=== PATIENT | male | born 1935 | race Caucasian/White ===

== ENCOUNTER 2016-04-21 08:28 | Emergency (ER) | END 2016-04-21 11:30 | disposition home or self-care (01) | DX: N30.90 Cystitis, unspecified without hematuria (principal); I50.9 Heart failure, unspecified; I10 Essential (primary) hypertension; R40.2142 Coma scale, eyes open, spontaneous, at arrival to emergency department; R40.2252 Coma scale, best verbal response, oriented, at arrival to emergency department; R40.2362 Coma scale, best motor response, obeys commands, at arrival to emergency department; Z79.82 Long term (current) use of aspirin; Z85.46 Personal history of malignant neoplasm of prostate | CPT/HCPCS: 36415; 70450; 71010; 80053; 81001; 83605; 84484; 85025; 85610; 85730; 87040; 87086; 87400; 93005; J7030; Z7502; Z7610 ==

== ENCOUNTER 2016-04-26 10:41 | Emergency (ER) | payer MEDICAID ==
[~2016-04-26] VITALS: Wt 72.0 kg
[~2016-04-26 10:41] MED LIST: ALBU18HF INH; ASPI81TA3 PO; ATOR20TA38 PO; CEPH-443 PO; FURO40TA4 PO; LISI-523 PO; METO50TA16 PO; NIT4 SL
[2016-04-26 10:44] VITALS: Wt 72.0 kg
[2016-04-26 12:07] LABS: BASOPHILS % 0.4 % (0.0-2.0); EOSINOPHILS # 0.2 10^3/ul (0.0-0.5); EOSINOPHILS % 3.1 % (0.0-7.0); HEMATOCRIT 43.5 % (42.0-52.0); HEMOGLOBIN 15.3 g/dl (14.0-18.0); INR 1.04; LYMPHOCYTES # 1.1 10^3/ul (0.8-2.9); LYMPHOCYTES % 17.4 % (15.0-51.0); MEAN CORPUSCULAR HEMOGLOBIN 31.3 pg (29.0-33.0); MEAN CORPUSCULAR HGB CONC 35.1 g/dl (32.0-37.0); MEAN CORPUSCULAR VOLUME 89.2 fl (82.0-101.0); MEAN PLATELET VOLUME 11.2 fl (7.4-10.4); MONOCYTE # 0.4 10^3/ul (0.3-0.9); MONOCYTES % 6.3 % (0.0-11.0); NEUTROPHIL # 4.6 10^3/ul (1.6-7.5); NEUTROPHILS % 72.8 % (39.0-77.0); PLATELET COUNT 146 10^3/UL (140-440); PROTIME 13.6 Sec (12.2-14.2); PT RATIO 1.1; RED BLOOD COUNT 4.88 10^6/ul (4.70-6.10); RED CELL DISTRIBUTION WIDTH 14.3 % (11.5-14.5); UNCORRECTED WBC 6.4 10^3/ul (4.8-10.8); WHITE BLOOD COUNT 6.4 10^3/ul (4.8-10.8)
[2016-04-26 12:09] LABS: ALBUMIN 3.5 g/dl (3.3-4.9)
[2016-04-26 12:10] LABS: POTASSIUM 4.2 mmol/L (3.5-5.1)
[2016-04-26 12:12] LABS: ALBUMIN/GLOBULIN RATIO 0.94; BILIRUBIN,INDIRECT 0.7 mg/dl (0-1.1); BILIRUBIN,TOTAL 0.7 mg/dl (0.2-1.3); CREATININE 1.19 mg/dl (0.61-1.24); TOTAL PROTEIN 7.2 g/dl (6.1-8.1)
[2016-04-26 12:13] LABS: CALCIUM 9.1 mg/dl (8.4-10.2)
[2016-04-26 12:14] LABS: CONDITION 1; LH ANALYZER COMMENTS 1; SUSPECT 1
--- NOTE | 2016-04-26 12:16 | RADRPT ---
PROCEDURE: XR Chest. CLINICAL INDICATION: Chest pain. TECHNIQUE: Single AP portable chest COMPARISON: 04/21/2016 FINDINGS: The cardiac silhouette is enlarged but stable in size. . Mild vascular congestion stable compared t o prior study. No pneumothorax. The osseous structures and soft tissues are unremarkable. IMPRESSION: 1. Mild vascular congestion and cardiomegaly. No significant change compared to previous study. RPTAT:AAJJ Wil Chen Physician Date Time Electronically viewed and signed by Wil Chen Physician on 04/26/2016 12:16 NAKUL/
[2016-04-26] MEDS ORDERED: FUROSEMIDE 40 MG INJ IV ONE (12:30)
--- NOTE | 2016-04-26 13:33 | ERA ---
ER Documentation Chief Complaint Date/Time DATE: 04/26/16 TIME: 11:30 Chief Complaint cough and congestion for the past month. not better with abx HPI 80-year-old male with history of coronary artery disease/SC status post PCI and stent placement 7 years ago, hypertension, dyslipidemia, congestive heart failure, cardiomyopathy with ejection fraction less than 25% and prostate cancer status post remote prostatectomy ambulatory to the ED complaining of a one-month history of nonproductive cough, exertional dyspnea, PND and orthopnea. Mild chronic lower extremity swelling but no calf pain. Denies chest pain or palpitations. No abdominal pain, nausea, vomiting, diarrhea or constipation. Denies headache or neck pain. No URI symptoms or rhinorrhea. No fevers or chills. He has had similar symptoms intermittently for a year and had multiple previous ED visits. ROS All systems reviewed and are negative except as per history of present illness. Medications Home Meds Active Scripts Furosemide* (Furosemide*) 40 Mg Tablet, 40 MG PO DAILY for 30 Days, TAB Prov:OLU LEIGH 05/29/15 Albuterol Sulfate* (Ventolin HFA*) 1 Puff Inha, 1 PUFF INH Q4H Y for SHORTNESS OF BREATH, #1 INHALER Prov:OLU LEIGH 05/29/15 Lisinopril* (Zestril*) 5 Mg Tab, 5 MG PO DAILY for 30 Days, TAB Prov:REGOLU VELASCO 05/29/15 Metoprolol Succinate* (Toprol XL*) 50 Mg Tabsr, 50 MG PO DAILY for 30 Days Prov:OLU LEIGH 05/29/15 Nitroglycerin* (Nitrostat*) 25 Tab Subl, 0.4 MG SL Q5M Y for CHEST PAIN, #30 3 dose max. Prov:OLU LEIGH 05/29/15 Atorvastatin Calcium* (Atorvastatin Calcium*) 20 Mg Tab, 20 MG PO HS for 30 Days , TAB Prov:OLU LEIGH 05/29/15 Aspirin (Aspirin) 81 Mg Chew, 81 MG PO DAILY for 30 Days, TAB Prov:OLU LEIGH 05/29/15 Discontinued Scripts Cephalexin* (Keflex*) 500 Mg Capsule, 500 MG PO QID for 7 Days, CAP Prov:MATA JIMÉNEZ MD 04/21/16 Allergies Allergies: Coded Allergies: No Known Allergy (Unverified , 04/26/16) PMhx/Soc Reviewed in chart. As per HPI. History of Surgery: Yes (prostate removal (cancer), circumflex repair) Anesthesia Reaction: No Hx Neurological Disorder: No Hx Respiratory Disorders: Yes Hx Cardiac Disorders: Yes (chf) Hx Psychiatric Problems: No Hx Miscellaneous Medical Probl: Yes (HIGH CHOLESTEROL) Hx Alcohol Use: No Hx Substance Use: No Hx Tobacco Use: No Smoking Status: Current some day smoker Physical Exam Vitals Vital Signs Date Time Temp Pulse Resp B/P Pulse Ox O2 Delivery O2 Flow Rate FiO2 04/26/16 10:44 97.9 91 21 150/81 98 Physical Exam Const: Alert, no acute distress. Head: Atraumatic Eyes: Normal Conjunctiva ENT: Normal External Ears, Nose and Mouth. Neck: Full range of motion. JVD. Resp: Breath sounds are equal bilaterally with crackles at the bases. No wheezes or rhonchi. Cardio: Regular rate and rhythm, no murmurs Abd: Soft, non tender, non distended. Normal bowel sounds Skin: No petechiae or rashes Back: No midline or flank tenderness Ext: 1+ edema. No calf swelling or tenderness. Neur: Awake and alert. Cranial nerves II through XII are grossly intact. No focal deficit. Psych: Normal Mood and Affect Result Diagram: 04/26/16 1146 04/26/16 1146 Results 24 hrs Laboratory Tests Test 04/26/16 11:46 Activated Partial Thromboplast Time 36.0Sec Alanine Aminotransferase (ALT/SGPT) 45IU/L Albumin 3.5g/dl Albumin/Globulin Ratio 0.94 Alkaline Phosphatase 127IU/L Anion Gap 15 Aspartate Amino Transf (AST/SGOT) 34IU/L B-Type Natriuretic Peptide 7790PG/ML Basophils # 0.010^3/ul Basophils % 0.4% Blood Morphology Comment Blood Urea Nitrogen 24mg/dl Calcium Level 9.1mg/dl Carbon Dioxide Level 26mmol/L Chloride Level 108mmol/L Creatinine 1.19mg/dl Differential Comment AUTO w/SCAN Direct Bilirubin 0.00mg/dl Eosinophils # 0.210^3/ul Eosinophils % 3.1% Globulin 3.70g/dl Glucose Level 103mg/dl Hematocrit 43.5% Hemoglobin 15.3g/dl INR International Normalized Ratio 1.04 Indirect Bilirubin 0.7mg/dl Lymphocytes # 1.110^3/ul Lymphocytes % 17.4% Mean Corpuscular Hemoglobin 31.3pg Mean Corpuscular Hemoglobin Concent 35.1g/dl Mean Corpuscular Volume 89.2fl Mean Platelet Volume 11.2fl Monocytes # 0.410^3/ul Monocytes % 6.3% Neutrophils # 4.610^3/ul Neutrophils % 72.8% Nucleated Red Blood Cells # 0.010^3/ul Nucleated Red Blood Cells % 0.0/100WBC Platelet Count 53344^3/UL Potassium Level 4.2mmol/L Prothrombin Time 13.6Sec Prothrombin Time Ratio 1.1 Red Blood Count 4.8810^6/ul Red Cell Distribution Width 14.3% Sodium Level 145mmol/L Total Bilirubin 0.7mg/dl Total Protein 7.2g/dl White Blood Count 6.410^3/ul Current Medications Medications (Trade) Dose Ordered Sig/Miranda Route PRN Reason Start Time Stop Time Status Last Admin Dose Admin Furosemide (Lasix) 40 mg ONCE ONCE IV 04/26/16 12:30 04/26/16 12:31 DC 04/26/16 13:21 EKG: TIME: 11:08, sinus rhythm. Ventricular rate 96. Left axis deviation and left bundle branch block. No acute ST segment elevation or depression. No ectopy. ECG unchanged from May 2015. EP Interpretation: Abnormal EKG. IMAGING: PROCEDURE: XR Chest. CLINICAL INDICATION: Chest pain. TECHNIQUE: Single AP portable chest COMPARISON: 04/21/2016 FINDINGS: The cardiac silhouette is enlarged but stable in size. . Mild vascular congestion stable compared to prior study. No pneumothorax. The osseous structures and soft tissues are unremarkable. IMPRESSION: 1. Mild vascular congestion and cardiomegaly. No significant change compared to previous study. RPTAT:AAJJ Physician Leonidas Date Time Electronically viewed and signed by Physician Leonidas on 04/26/2016 12:16 NAKUL/ Procedures/MDM DOCUMENTS REVIEWED: ED nurse, prior ED, prior records ED COURSE: Lasix 40 mg IV MEDICAL DECISION MAKIN-year-old male with history of coronary artery disease/SC status post PCI and stent placement 7 years ago, hypertension, dyslipidemia, congestive heart failure, cardiomyopathy with ejection fraction less than 25% and prostate cancer status post remote prostatectomy ambulatory to the ED complaining of a one-month history of nonproductive cough, exertional dyspnea, PND and orthopnea. Patient with severe cardiomyopathy and ejection fraction less than 25% presents with acute on chronic congestive heart failure. Chest x-ray reveals mild pulmonary vascular congestion but no pulmonary edema or pneumonia. No chest pain, acute EKG changes or elevated troponin. Doubt pulmonary embolism. Diuresed with Lasix. No wheezing or bronchospasm. Stable for discharge with precautionary instructions and outpatient follow-up as counseled. Counseled patient regarding diagnostic workup, diagnosis and need for followup. Extensive counseling regarding the chronicity of the patient's disease, including his very poor cardiac function but he still fails to understand why he is not improving. Understands to return to ED if symptoms recur, worsen or any other concerns. Departure Diagnosis: Primary Impression: Congestive heart failure Qualified Code: I50.23 - Acute on chronic systolic congestive heart failure Additional Impressions: History of coronary artery disease Cardiomyopathy Qualified Code: I42.9 - Cardiomyopathy, unspecified type History of coronary artery stent placement Condition: Stable Patient Instructions: Heart Failure, LILLIANA Contreras MD Apr 26, 2016 13:33
[2016-04-26 14:47] VITALS: BP 149/98; PULSE 87; RESP 18; TEMP 98.2
== END 2016-04-26 14:49 | disposition home or self-care (01) ==
LOC: E/R 10:41
DX: I50.23 Acute on chronic systolic (congestive) heart failure (principal); I42.9 Cardiomyopathy, unspecified; F17.210 Nicotine dependence, cigarettes, uncomplicated; I10 Essential (primary) hypertension; I25.10 Atherosclerotic heart disease of native coronary artery without angina pectoris; Z98.61 Coronary angioplasty status; Z79.82 Long term (current) use of aspirin; Z85.46 Personal history of malignant neoplasm of prostate
CPT/HCPCS: 71010; 80053; 83880; 85025; 85610; 85730; J1940; 36415; 93005; 96374

== ENCOUNTER 2016-06-07 18:51 | Inpatient (IN) | payer MEDICAID ==
[~2016-06-07] VITALS: Ht 167.6 cm; Wt 70.2 kg
[~2016-06-07 18:51] MED LIST changes: -CEPH-443 PO
[2016-06-07] MEDS ORDERED: ASPIRIN 325 MG TAB PO STA (19:13)
[2016-06-07] MEDS ORDERED: ONDANSETRON 4 MG INJ IV STA (19:13)
[2016-06-07] MEDS ORDERED: morphine 4 MG/ML VIAL IV STA (19:13)
[2016-06-07] MEDS ORDERED: DILTIAZEM 25 MG INJ ONE (19:16)
[2016-06-07] MEDS ORDERED: DILTIAZEM 25 MG INJ IV ONE (19:30)
[2016-06-07] MEDS ORDERED: DILTIAZEM-D5W 125MG/125ML DRIP 125 ML IV SCH (19:30)
[2016-06-07 19:35] LABS: ADD SCAN DIFF NO
[2016-06-07 19:36] LABS: BASOPHILS % 0.3 % (0.0-2.0); EOSINOPHILS # 0.2 10^3/ul (0.0-0.5); EOSINOPHILS % 2.9 % (0.0-7.0); HEMATOCRIT 46.2 % (42.0-52.0); HEMOGLOBIN 15.4 g/dl (14.0-18.0); LYMPHOCYTES # 1.6 10^3/ul (0.8-2.9); LYMPHOCYTES % 26.1 % (15.0-51.0); MEAN CORPUSCULAR HEMOGLOBIN 30.7 pg (29.0-33.0); MEAN CORPUSCULAR HGB CONC 33.3 g/dl (32.0-37.0); MEAN CORPUSCULAR VOLUME 92.2 fl (82.0-101.0); MEAN PLATELET VOLUME 13.7 fl (7.4-10.4); MONOCYTE # 0.5 10^3/ul (0.3-0.9); MONOCYTES % 7.3 % (0.0-11.0); NEUTROPHIL # 3.9 10^3/ul (1.6-7.5); NEUTROPHILS % 63.1 % (39.0-77.0); PLATELET COUNT 131 10^3/UL (140-415); RED BLOOD COUNT 5.01 10^6/ul (4.70-6.10); RED CELL DISTRIBUTION WIDTH 15.4 % (11.5-14.5); WHITE BLOOD COUNT 6.2 10^3/ul (4.8-10.8)
[2016-06-07 19:51] LABS: ALBUMIN 3.7 g/dl (3.3-4.9); INR 1.18; POTASSIUM 4.1 mmol/L (3.5-5.1); PROTIME 15.1 Sec (12.2-14.2); PT RATIO 1.2
[2016-06-07 19:52] LABS: PARTIAL THROMBOPLASTIN TIME 35.6 Sec (25.0-35.0)
[2016-06-07 19:53] LABS: CREATININE 1.13 mg/dl (0.61-1.24)
[2016-06-07 19:54] LABS: ALBUMIN/GLOBULIN RATIO 1.23; BILIRUBIN,INDIRECT 0.7 mg/dl (0-1.1); BILIRUBIN,TOTAL 0.7 mg/dl (0.2-1.3); CALCIUM 9.4 mg/dl (8.4-10.2); TOTAL PROTEIN 6.7 g/dl (6.1-8.1)
[2016-06-07] MEDS ORDERED: SOD CHLORIDE 0.9% 500 ML IV ONE (20:00)
[2016-06-07 20:06] LABS: TROPONIN-I 0.034 ng/ml (0.00-0.12)
--- NOTE | 2016-06-07 20:12 | RADRPT ---
PROCEDURE: XR Chest. TECHNIQUE: Single frontal radiograph. CLINICAL INDICATION: Chest pain. COMPARISON: 04/26/2016. FINDINGS: Bibasilar atelectasis with mildly progressed vascular congestion in the background of cardiomegaly. No focal consolidation or definite pleural effusions. IMPRESSION: Increased vascular congestion. Unchanged bibasilar atelectasis and cardiomegaly. RPTAT: HEKC .Italo Winters MD, MD Date Time Electronically viewed and signed by .Italo Winters MD, MD on 06/07/2016 20:11 .C/
--- NOTE | 2016-06-07 21:19 | ERA ---
ER Documentation Chief Complaint Date/Time DATE: 06/07/16 TIME: 21:15 Chief Complaint 2 MOS SOB, WORSE X 2 DAYS WITH CP/ABD PAIN HPI This is a 80-year-old male who states that he said shortness of breath for 2 months. He says that he had an onset of gradual worsening shortness of breath but worse for the past 4 days. He also states that he felt palpitations 4 days ago has been there ever since. He says that he does have some dyspnea on exertion and orthopnea. Chest pain is described as a central chest pressure is moderate in nature without radiation no diaphoresis. He has no cough no fever no back pain. He says on occasion the chest pain will radiate to the back. ROS All systems reviewed and are negative except as per history of present illness. Medications Home Meds Active Scripts Furosemide* (Furosemide*) 40 Mg Tablet, 40 MG PO DAILY for 30 Days, TAB Prov:OLU LEIGH 05/29/15 Albuterol Sulfate* (Ventolin HFA*) 1 Puff Inha, 1 PUFF INH Q4H Y for SHORTNESS OF BREATH, #1 INHALER Prov:OLU LEIGH 05/29/15 Lisinopril* (Zestril*) 5 Mg Tab, 5 MG PO DAILY for 30 Days, TAB Prov:OLU LEIGH 05/29/15 Metoprolol Succinate* (Toprol XL*) 50 Mg Tabsr, 50 MG PO DAILY for 30 Days Prov:OLU LEIGH 05/29/15 Nitroglycerin* (Nitrostat*) 25 Tab Subl, 0.4 MG SL Q5M Y for CHEST PAIN, #30 3 dose max. Prov:REGOLU VELASCO 05/29/15 Atorvastatin Calcium* (Atorvastatin Calcium*) 20 Mg Tab, 20 MG PO HS for 30 Days , TAB Prov:REGIDOROLU 05/29/15 Aspirin (Aspirin) 81 Mg Chew, 81 MG PO DAILY for 30 Days, TAB Prov:REGOLU VELASCO 05/29/15 Allergies Allergies: Coded Allergies: No Known Allergy (Unverified , 04/26/16) PMhx/Soc History of Surgery: Yes (prostate removal (cancer), circumflex repair, stent ) Anesthesia Reaction: No Hx Neurological Disorder: No Hx Respiratory Disorders: No Hx Cardiac Disorders: Yes (chf) Hx Psychiatric Problems: No Hx Miscellaneous Medical Probl: Yes (HIGH CHOLESTEROL) Hx Alcohol Use: No Hx Substance Use: No Hx Tobacco Use: No Smoking Status: Never smoker FmHx Family History: No coronary disease Physical Exam Vitals Vital Signs Date Time Temp Pulse Resp B/P Pulse Ox O2 Delivery O2 Flow Rate FiO2 06/07/16 21:00 69 14 112/83 99 Mask 6.0 06/07/16 20:30 68 16 112/84 99 Mask 6.0 06/07/16 20:20 68 14 111/77 99 Mask 6.0 06/07/16 20:10 68 18 107/74 97 Mask 6.0 06/07/16 20:08 90 Nasal Cannula 4.0 06/07/16 20:00 71 12 93/74 97 Nasal Cannula 4.0 06/07/16 19:50 68 17 91/71 95 Nasal Cannula 4.0 06/07/16 19:40 68 13 86/72 95 Nasal Cannula 2.0 06/07/16 19:30 80 15 92/68 96 Nasal Cannula 2.0 06/07/16 19:20 138 23 112/85 99 Nasal Cannula 2.0 06/07/16 19:00 Nasal Cannula 2 06/07/16 19:00 Nasal Cannula 2.0 06/07/16 19:00 139 24 125/105 98 Room Air 06/07/16 18:54 96.8 140 28 120/86 97 Physical Exam Const: Well-developed, well-nourished Head: Atraumatic, normocephalic Eyes: Normal Conjunctiva, PERRLA, EOMI, normal sclera, no nystagmus ENT: Normal External Ears, Nose and Mouth, moist mucus membranes. Neck: Full range of motion. No meningismus, no lymphadenopathy. Resp: Bilateral rhonchi n mild increased work of breathing Cardio: Tachycardia no murmurs, S1 S2 present] Abd: Soft, non tender x 4, non distended. Normal bowel sounds, no guarding or rebound, no pulsitile abdominal masses or bruits Skin: No petechiae or rashes, no ecchymosis , no maculopapular rash Back: No midline or flank tenderness Ext: No cyanosis, or edema, FROM x 4, normal inspection, neurovascularly intact x 4 Neur: Awake and alert, STR 5/5 x 4, sensation intact x 4, no focal findings, cerebellum intact Psych: Normal Mood and Affect Result Diagram: 06/07/16191906/07/161919 Results 24 hrs Laboratory Tests Test 06/07/16 19:20 Activated Partial Thromboplast Time 35.6Sec Alanine Aminotransferase (ALT/SGPT) 355IU/L Albumin 3.7g/dl Albumin/Globulin Ratio 1.23 Alkaline Phosphatase 178IU/L Anion Gap 16 Aspartate Amino Transf (AST/SGOT) 247IU/L B-Type Natriuretic Peptide 7720PG/ML Basophils # 0.010^3/ul Basophils % 0.3% Blood Urea Nitrogen 41mg/dl Calcium Level 9.4mg/dl Carbon Dioxide Level 24mmol/L Chloride Level 107mmol/L Creatinine 1.13mg/dl Direct Bilirubin 0.00mg/dl Eosinophils # 0.210^3/ul Eosinophils % 2.9% Globulin 3.00g/dl Glucose Level 107mg/dl Hematocrit 46.2% Hemoglobin 15.4g/dl INR International Normalized Ratio 1.18 Indirect Bilirubin 0.7mg/dl Lymphocytes # 1.610^3/ul Lymphocytes % 26.1% Mean Corpuscular Hemoglobin 30.7pg Mean Corpuscular Hemoglobin Concent 33.3g/dl Mean Corpuscular Volume 92.2fl Mean Platelet Volume 13.7fl Monocytes # 0.510^3/ul Monocytes % 7.3% Neutrophils # 3.910^3/ul Neutrophils % 63.1% Nucleated Red Blood Cells # 0.010^3/ul Nucleated Red Blood Cells % 0.0/100WBC Platelet Count 10746^3/UL Potassium Level 4.1mmol/L Prothrombin Time 15.1Sec Prothrombin Time Ratio 1.2 Red Blood Count 5.0110^6/ul Red Cell Distribution Width 15.4% Sodium Level 143mmol/L Total Bilirubin 0.7mg/dl Total Protein 6.7g/dl Troponin I 0.034ng/ml White Blood Count 6.210^3/ul Current Medications Medications (Trade) Dose Ordered Sig/Miranda Route PRN Reason Start Time Stop Time Status Last Admin Dose Admin Aspirin (Aspirin) 325 mg ONCE STAT PO 06/07/16 19:13 06/07/16 19:16 DC 06/07/16 19:22 Morphine Sulfate (morphine) 4 mg ONCE STAT IV 06/07/16 19:13 06/07/16 19:16 DC 06/07/16 19:21 Ondansetron HCl (Zofran Inj) 4 mg ONCE STAT IV 06/07/16 19:13 06/07/16 19:16 DC 06/07/16 19:27 Diltiazem HCl 20 mg 20 mg ONCE ONCE IV 06/07/16 19:30 06/07/16 19:31 DC 06/07/16 19:18 Diltiazem HCl (Cardizem-D5W 125 Mg/125 ml Drip) 125 ml @ 5 mls/hr TITRATE IV 06/07/16 19:30 Diltiazem HCl 25 mg 25 mg STK-MED ONCE .ROUTE 06/07/16 19:16 06/07/16 19:17 DC Sodium Chloride (NS) 500 ml @ 500 mls/hr Q1H ONCE IV 06/07/16 20:00 06/07/16 20:59 DC 06/07/16 19:35 Furosemide (Lasix) 20 mg ONCE ONCE IV 06/07/16 21:30 06/07/16 21:31 UNV Procedures/MDM EKG: Rate/Rhythm: Sinus tachycardia heart rate 138 left bundle branch block QRS, ST, QT: NORMAL NM, QRS, QT] Impression: Abnormal EK Rate/Rhythm: Atrial flutter with a 4-1 block QRS, ST, QT: NORMAL NM, QRS, QT] Impression: Abnormal PROCEDURE: XR Chest. TECHNIQUE: Single frontal radiograph. CLINICAL INDICATION: Chest pain. COMPARISON: 04/26/2016. FINDINGS: Bibasilar atelectasis with mildly progressed vascular congestion in the background of cardiomegaly. No focal consolidation or definite pleural effusions. IMPRESSION: Increased vascular congestion. Unchanged bibasilar atelectasis and cardiomegaly. RPTAT: HEKC .Italo Winters MD, Date Time Electronically viewed and signed by .Italo Winters MD, on 06/07/2016 20:11 .C/ CC: HARI TAY DO Patient received IV Cardizem to slow the heart rate in his revealed a flutter block of 4-1. Patient has CHF on his chest x-ray when he milligrams of Lasix IV. We will admit the patient for diuresis as well as rate control. Give him Lovenox subcu for clot protection Patient received morphine and Zofran for chest pain. When his heart rate was decreased to normal his pain went away having a rate related chest pain Critical Care Time: 30 minutes Treatments/Evaluations: Close monitoring and treatment of unstable vital signs, cardiorespiratory, and neurologic status, while maintaining tight balance of fluid, respiratory, and cardiac interventions. This time includes discussing the case with the patient and the patient's family. This time does not include all procedures stated elsewhere in this record. This time also includes reviewing old records, labs and radiological studies. This time includes examining and re-examining the patient. Additionally, this time also includes arranging care with admitting and consulting physicians. Departure Diagnosis: Primary Impression: Atrial flutter Qualified Code: I48.92 - Atrial flutter, unspecified type Additional Impressions: Chest pain Qualified Code: R07.9 - Chest pain, unspecified type Pulmonary edema Qualified Code: J81.1 - Chronic pulmonary edema Condition: Stable HARI TAY DO Jun 07, 2016 21:19
[2016-06-07] MEDS ORDERED: FUROSEMIDE 20 MG INJ IV ONE (21:30)
[2016-06-07] MEDS ORDERED: ONDANSETRON 4 MG INJ IV PRN (21:30)
[2016-06-07] MEDS ORDERED: ENOXAPARIN 80 MG/0.8 ML SYG SC SCH (21:30)
[2016-06-07] MEDS ORDERED: NITROGLYCERIN (SL) 0.4 MG TAB SL PRN (21:30)
[2016-06-07] MEDS ORDERED: ACETAMINOPHEN 325 MG TAB PO PRN (21:30)
--- NOTE | 2016-06-07 21:32 | HP ---
Date/Time of Note Date/Time of Note DATE: 06/07/16 TIME: 21:29 Assessment/Plan VTE Prophylaxis VTE Prophylaxis Intervention: other (Enoxaparin) Lines/Catheters IV [facility]from [facility] Saline Lock Assessment/Plan Assessment/Plan 1) Atrial flutter Qualified Code: I48.92 - Atrial flutter, unspecified type - Admit to Telemetry - CONSULT: Cardio 2) Chest pain, Troponin = 0.034 - Serial Troponins for Rule-out Qualified Code: R07.9 - Chest pain, unspecified type 3) Pulmonary edema Qualified Code: J81.1 - Chronic pulmonary edema 4) Congesstive Heart Failure with elevated BNP = 7720 5) Transamminitis - Acute Hepatitis Panel HPI/ROS Admit Date/Time Admit Date/Time 06/07/162121 Hx of Present Illness 2 MOS SOB, WORSE X 2 DAYS WITH CP/ABD PAIN HPI This is a 80-year-old male who states that he said shortness of breath for 2 months. He says that he had an onset of gradual worsening shortness of breath but worse for the past 4 days. He also states that he felt palpitations 4 days ago has been there ever since. He says that he does have some dyspnea on exertion and orthopnea. Chest pain is described as a central chest pressure is moderate in nature without radiation no diaphoresis. He has no cough no fever no back pain. He says on occasion the chest pain will radiate to the back. ER Course per ER Physician: Patient received IV Cardizem to slow the heart rate in his revealed a flutter block of 4-1. Patient has CHF on his chest x-ray when he milligrams of Lasix IV. We will admit the patient for diuresis as well as rate control. Give him Lovenox subcu for clot protection Patient received morphine and Zofran for chest pain. When his heart rate was decreased to normal his pain went away having a rate related chest pain ROS All systems reviewed and are negative except as per history of present illness. PMH/Family/Social Past Medical History Medical History: cancer (Prostate), congestive heart failure, high cholesterol Past Surgical History Prostate Removal, Circumflex Repair (stent) Past Surgical Hx: other Family History Significant Family History: heart disease Social History Alcohol Use: none Smoking Status: Never smoker Drug Use: none Exam/Review of Systems Vital Signs Vitals Vital Signs Date Time Temp Pulse Resp B/P Pulse Ox O2 Delivery O2 Flow Rate FiO2 06/07/16 21:00 69 14 112/83 99 Mask 6.0 06/07/16 18:54 96.8 Exam Exam Const: Well-developed, well-nourished Head: Atraumatic, normocephalic Eyes: Normal Conjunctiva, PERRLA, EOMI, normal sclera, no nystagmus ENT: Normal External Ears, Nose and Mouth, moist mucus membranes. Neck: Full range of motion. No meningismus, no lymphadenopathy. Resp: Bilateral rhonchi n mild increased work of breathing Cardio: Tachycardia no murmurs, S1 S2 present] Abd: Soft, non tender x 4, non distended. Normal bowel sounds, no guarding or rebound, no pulsitile abdominal masses or bruits Skin: No petechiae or rashes, no ecchymosis , no maculopapular rash Back: No midline or flank tenderness Ext: No cyanosis, or edema, FROM x 4, normal inspection, neurovascularly intact x 4 Neur: Awake and alert, STR 5/5 x 4, sensation intact x 4, no focal findings, cerebellum intact Psych: Normal Mood and Affect Labs Result Diagram: 06/07/16191906/07/161919 Medications Medications Home Meds Active Scripts Furosemide* (Furosemide*) 40 Mg Tablet, 40 MG PO DAILY for 30 Days, TAB Prov:OLU LEIGH 05/29/15 Albuterol Sulfate* (Ventolin HFA*) 1 Puff Inha, 1 PUFF INH Q4H Y for SHORTNESS OF BREATH, #1 INHALER Prov:OLU LEIGH 05/29/15 Lisinopril* (Zestril*) 5 Mg Tab, 5 MG PO DAILY for 30 Days, TAB Prov:OLU LEIGH 05/29/15 Metoprolol Succinate* (Toprol XL*) 50 Mg Tabsr, 50 MG PO DAILY for 30 Days Prov:OLU LEIGH 05/29/15 Nitroglycerin* (Nitrostat*) 25 Tab Subl, 0.4 MG SL Q5M Y for CHEST PAIN, #30 3 dose max. Prov:OLU LEIGH 05/29/15 Atorvastatin Calcium* (Atorvastatin Calcium*) 20 Mg Tab, 20 MG PO HS for 30 Days , TAB Prov:TEETEE LEIGHNELL 05/29/15 Aspirin (Aspirin) 81 Mg Chew, 81 MG PO DAILY for 30 Days, TAB Prov:OLU LEIGH 05/29/15 Current Medications Diltiazem HCl (Cardizem-D5W 125 Mg/125 ml Drip) 125 ml @ 5 mls/hr TITRATE IV ; Start 06/07/16 at 19:30 Furosemide (Lasix) 20 mg ONCE ONCE IV ; Start 06/07/16 at 21:30; Stop 06/07/16 at 21:31 Enoxaparin Sodium (Lovenox) 80 mg ONCE SC ; Start 06/07/16 at 21:30 Procedures Procedures Laboratory Tests Test 06/07/16 19:20 Activated Partial Thromboplast Time 35.6Sec Alanine Aminotransferase (ALT/SGPT) 355IU/L Albumin 3.7g/dl Albumin/Globulin Ratio 1.23 Alkaline Phosphatase 178IU/L Anion Gap 16 Aspartate Amino Transf (AST/SGOT) 247IU/L B-Type Natriuretic Peptide 7720PG/ML Basophils # 0.010^3/ul Basophils % 0.3% Blood Urea Nitrogen 41mg/dl Calcium Level 9.4mg/dl Carbon Dioxide Level 24mmol/L Chloride Level 107mmol/L Creatinine 1.13mg/dl Direct Bilirubin 0.00mg/dl Eosinophils # 0.210^3/ul Eosinophils % 2.9% Globulin 3.00g/dl Glucose Level 107mg/dl Hematocrit 46.2% Hemoglobin 15.4g/dl INR International Normalized Ratio 1.18 Indirect Bilirubin 0.7mg/dl Lymphocytes # 1.610^3/ul Lymphocytes % 26.1% Mean Corpuscular Hemoglobin 30.7pg Mean Corpuscular Hemoglobin Concent 33.3g/dl Mean Corpuscular Volume 92.2fl Mean Platelet Volume 13.7fl Monocytes # 0.510^3/ul Monocytes % 7.3% Neutrophils # 3.910^3/ul Neutrophils % 63.1% Nucleated Red Blood Cells # 0.010^3/ul Nucleated Red Blood Cells % 0.0/100WBC Platelet Count 15839^3/UL Potassium Level 4.1mmol/L Prothrombin Time 15.1Sec Prothrombin Time Ratio 1.2 Red Blood Count 5.0110^6/ul Red Cell Distribution Width 15.4% Sodium Level 143mmol/L Total Bilirubin 0.7mg/dl Total Protein 6.7g/dl Troponin I 0.034ng/ml White Blood Count 6.210^3/ul PROCEDURE: XR Chest. TECHNIQUE: Single frontal radiograph. CLINICAL INDICATION: Chest pain. COMPARISON: 04/26/2016. FINDINGS: Bibasilar atelectasis with mildly progressed vascular congestion in the background of cardiomegaly. No focal consolidation or definite pleural effusions. IMPRESSION: Increased vascular congestion. Unchanged bibasilar atelectasis and cardiomegaly. Procedures/MDM EKG: Rate/Rhythm: Sinus tachycardia heart rate 138 left bundle branch block QRS, ST, QT: NORMAL [place], QRS, QT] Impression: Abnormal EK Rate/Rhythm: Atrial flutter with a 4-1 block QRS, ST, QT: NORMAL WV, QRS, QT] Impression: Abnormal SHI DOOLEY Jun 07, 2016 21:32 Sodium Chloride (NS) 500 ml @ 500 mls/hr Q1H ONCE IV 06/07/16 20:00 06/07/16 20:59 DC 06/07/16 19:35 Furosemide (Lasix) 20 mg ONCE ONCE IV 06/07/16 21:30 06/07/16 21:31 UNV Procedures/MDM EKG: Rate/Rhythm: Sinus tachycardia heart rate 138 left bundle branch block QRS, ST, QT: NORMAL WV, QRS, QT] Impression: Abnormal EK Rate/Rhythm: Atrial flutter with a 4-1 block QRS, ST, QT: NORMAL WV, QRS, QT] Impression: Abnormal PROCEDURE: XR Chest. TECHNIQUE: Single frontal radiograph. CLINICAL INDICATION: Chest pain. COMPARISON: 04/26/2016. FINDINGS: Bibasilar atelectasis with mildly progressed vascular congestion in the background of cardiomegaly. No focal consolidation or definite pleural effusions. IMPRESSION: Increased vascular congestion. Unchanged bibasilar atelectasis and cardiomegaly. RPTAT: HEKC .Italo Winters MD, MD Date Time Electronically viewed and signed by .Italo Winters MD, MD on 06/07/2016 20:11 .C/ CC: HARI TAY DO Patient received IV Cardizem to slow the heart rate in his revealed a flutter block of 4-1. Patient has CHF on his chest x-ray when he milligrams of Lasix IV. We will admit the patient for diuresis as well as rate control. Give him Lovenox subcu for clot protection Patient received morphine and Zofran for chest pain. When his heart rate was decreased to normal his pain went away having a rate related chest pain Critical Care Time: 30 minutes Treatments/Evaluations: Close monitoring and treatment of unstable vital signs, cardiorespiratory, and neurologic status, while maintaining tight balance of fluid, respiratory, and cardiac interventions. This time includes discussing the case with the patient and the patient's family. This time does not include all procedures stated elsewhere in this record. This time also includes reviewing old records, labs and radiological studies. This time includes examining and re-examining the patient. Additionally, this time also includes arranging care with admitting and consulting physicians. Departure Diagnosis: Primary Impression: Atrial flutter Qualified Code: I48.92 - Atrial flutter, unspecified type Additional Impressions: Chest pain Qualified Code: R07.9 - Chest pain, unspecified type Pulmonary edema Qualified Code: J81.1 - Chronic pulmonary edema Condition: Stable PMH/Family/Social Past Surgical History Past Surgical Hx: other Social History Smoking Status: Never smoker Exam/Review of Systems Vital Signs Vitals Vital Signs Date Time Temp Pulse Resp B/P Pulse Ox O2 Delivery O2 Flow Rate FiO2 06/07/16 21:00 69 14 112/83 99 Mask 6.0 06/07/16 18:54 96.8 Labs Result Diagram: 06/07/16191906/07/161919 Medications Medications Current Medications Diltiazem HCl (Cardizem-D5W 125 Mg/125 ml Drip) 125 ml @ 5 mls/hr TITRATE IV ; Start 06/07/16 at 19:30 Furosemide (Lasix) 20 mg ONCE ONCE IV ; Start 06/07/16 at 21:30; Stop 06/07/16 at 21:31 Enoxaparin Sodium (Lovenox) 80 mg ONCE SC ; Start 06/07/16 at 21:30 SHI DOOLEY DO Jun 07, 2016 21:32
[2016-06-08] VITALS (13 sets, daily range): BP systolic 99–123; BP diastolic 68–92; PULSE 92–131; RESP 18–20; TEMP 98.3; Ht 167.6 cm; Wt 70.2 kg
[2016-06-08] MEDS ORDERED: NACL 0.9% 3 ML SYG IV SCH
[2016-06-08 01:17] LABS: HAAIG REFLEX REFLEX FILED
[2016-06-08] MEDS: ALBUTEROL/IPRATROPIUM (NEB) 3 ML AMP NEB SCH ×2 (02:20→05:16)
[2016-06-08] MEDS: METOPROLOL (XL) 50 MG TAB PO SCH ×2 (03:32→09:04)
[2016-06-08 03:33] LABS: HEPATITIS B CORE ANTIBODY REACTIVE (NEGATIVE)
[2016-06-08 07:06] LABS: ADD SCAN DIFF NO
[2016-06-08 07:18] LABS: BASOPHILS % 0.3 % (0.0-2.0); EOSINOPHILS % 0.3 % (0.0-7.0); HEMATOCRIT 45.4 % (42.0-52.0); HEMOGLOBIN 15.2 g/dl (14.0-18.0); LYMPHOCYTES % 17.3 % (15.0-51.0); MEAN CORPUSCULAR HEMOGLOBIN 31.3 pg (29.0-33.0); MEAN CORPUSCULAR HGB CONC 33.5 g/dl (32.0-37.0); MEAN CORPUSCULAR VOLUME 93.4 fl (82.0-101.0); MEAN PLATELET VOLUME 14.4 fl (7.4-10.4); MONOCYTE # 0.3 10^3/ul (0.3-0.9); MONOCYTES % 5.2 % (0.0-11.0); NEUTROPHIL # 4.6 10^3/ul (1.6-7.5); NEUTROPHILS % 76.4 % (39.0-77.0); PLATELET COUNT 123 10^3/UL (140-415); RED BLOOD COUNT 4.86 10^6/ul (4.70-6.10); RED CELL DISTRIBUTION WIDTH 15.7 % (11.5-14.5)
[2016-06-08 07:29] LABS: POTASSIUM 4.5 mmol/L (3.5-5.1)
[2016-06-08 07:31] LABS: CREATININE 1.05 mg/dl (0.61-1.24)
[2016-06-08 07:32] LABS: CALCIUM 8.8 mg/dl (8.4-10.2)
[2016-06-08 07:33] LABS: MAGNESIUM 2.1 mg/dl (1.7-2.5)
[2016-06-08] MEDS ORDERED: ENOXAPARIN 40 MG/0.4 ML SYG SC SCH (09:00)
[2016-06-08] MEDS: ASPIRIN 81 MG TAB PO SCH (09:02)
[2016-06-08] MEDS: LISINOPRIL 5 MG TAB PO SCH (09:06)
[2016-06-08] MEDS: LEVALBUTEROL (NEB) 1.25 MG/0.5 ML AMP HHN SCH ×4 (09:35→20:11)
[2016-06-08] MEDS: FUROSEMIDE 20 MG INJ IV SCH ×2 (12:54→17:12)
[2016-06-08] MEDS ORDERED: DILTIAZEM 60 MG TAB PO ONE (14:00)
--- NOTE | 2016-06-08 19:18 | PN ---
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 Prophylaxis: Lovenox Problems: Subjective 24 Hr Interval Summary Respiratory: shortness of breath Exam/Review of Systems Vital Signs Vitals Vital Signs Date Time Temp Pulse Resp B/P Pulse Ox O2 Delivery O2 Flow Rate FiO2 06/08/16 16:58 3.0 06/08/16 16:58 130 18 97 Nasal Cannula 06/08/16 16:23 97.5 121/72 06/08/16 05:17 32 Intake and Output 06/07/16 06/07/16 06/08/16 15:00 23:00 07:00 Intake Total 80 ml Balance 80 ml Exam Constitutional: alert Respiratory: clear to auscultation Cardiovascular: regular rate and rhythm Gastrointestinal: soft, No distended Musculoskeletal: nl extremities to inspection Results Result Diagram: 06/08/16 0555 06/08/16 0555 Results 24 hrs Laboratory Tests Test 06/07/16 19:20 06/08/16 05:55 Activated Partial Thromboplast Time 35.6 H Alanine Aminotransferase (ALT/SGPT) 355 H Albumin 3.7 Albumin/Globulin Ratio 1.23 Alkaline Phosphatase 178 H Anion Gap 16 17 H Aspartate Amino Transf (AST/SGOT) 247 H B-Type Natriuretic Peptide 7720 H Basophils # 0.0 0.0 Basophils % 0.3 0.3 Blood Urea Nitrogen 41 H 42 H Calcium Level 9.4 8.8 Carbon Dioxide Level 24 24 Chloride Level 107 108 Creatinine 1.13 1.05 Direct Bilirubin 0.00 Eosinophils # 0.2 0.0 Eosinophils % 2.9 0.3 Globulin 3.00 Glucose Level 107 110 Hematocrit 46.2 45.4 Hemoglobin 15.4 15.2 Hepatitis B Core Total Antibody REACTIVE H Hepatitis B Surface Antigen NEGATIVE Hepatitis C Antibody NEGATIVE INR International Normalized Ratio 1.18 Indirect Bilirubin 0.7 Lymphocytes # 1.6 1.0 Lymphocytes % 26.1 17.3 Mean Corpuscular Hemoglobin 30.7 31.3 Mean Corpuscular Hemoglobin Concent 33.3 33.5 Mean Corpuscular Volume 92.2 93.4 Mean Platelet Volume 13.7 #H 14.4 H Monocytes # 0.5 0.3 Monocytes % 7.3 5.2 Neutrophils # 3.9 4.6 Neutrophils % 63.1 76.4 Nucleated Red Blood Cells # 0.0 0.0 Nucleated Red Blood Cells % 0.0 0.0 Platelet Count 131 L 123 L Potassium Level 4.1 4.5 Prothrombin Time 15.1 H Prothrombin Time Ratio 1.2 Red Blood Count 5.01 4.86 Red Cell Distribution Width 15.4 H 15.7 H Sodium Level 143 144 Thyroid Stimulating Hormone (TSH) 3.750 Total Bilirubin 0.7 Total Protein 6.7 Troponin I 0.034 White Blood Count 6.2 6.0 Magnesium Level 2.1 Phosphorus Level 4.0 Medications Medications Current Medications Aspirin (Aspirin) 81 mg DAILY PO Last administered on 06/08/16 09:02; Admin Dose 81 MG; Start 06/08/16 at 09:00 Lisinopril (Zestril) 5 mg DAILY PO Last administered on 06/08/16 09:06; Admin Dose 5 MG; Start 06/08/16 at 09:00 Metoprolol Succinate (Toprol Xl) 50 mg DAILY PO Last administered on 06/08/16 09:04; Admin Dose 50 MG; Start 06/08/16 at 03:30 Nitroglycerin (Nitroglycerin (Sl Tab) 0.4 Mg) 1 tab Q5M PRN SL CHEST PAIN; Start 06/07/16 at 21:30 Enoxaparin Sodium (Lovenox) 40 mg DAILY SC Last administered on 06/08/16 09:10 ; Admin Dose 40 MG; Start 06/08/16 at 09:00 SADIA SON Jun 08, 2016 19:18
--- NOTE | 2016-06-08 19:28 | CONS ---
Date/Time of Note Date/Time of Note DATE: 06/08/16 TIME: 19:09 Assessment/Plan Assessment/Plan Chief Complaint/Hosp Course Assessment: Typical atrial flutter - 2:1 AV conduction, onset >48 hours based on symptoms Acute on chronic systolic heart failure Ischemic cardiomyopathy - LVEF<25%, no reversible defects on Lexiscan SPECT April 2015 Chronic left bundle branch block Coronary artery disease, history of coronary stenting - details unknown Hypertension Dyslipidemia History of stroke Transaminitis - per primary team Recommendations: -telemetry monitoring -diuresis - Lasix 40mg IV daily -metoprolol 50mg PO Q6hr (will change back to succinate form when on stable dose ) -digoxin PO - 0.5mg x 1, then 0.25mg Q6hr x 2, then 0.25mg daily -PRN diltiazem -continue lisinopril 5mg daily -continue aspirin 81mg daily -start Xarelto - will need evaluation for DCCV/atrial flutter ablation as outpatient after 3-4 weeks of anticoagulation -will eventually also need evaluation for primary prevention ICD as outpatient -hold atorvastatin in setting of transaminitis Problems: Consultation Date/Type/Reason Admit Date/Time 06/07/162121 Type of Consultation: Cardiology Reason for Consultation atrial flutter Hx of Present Illness The patient is a 80 year-old male with ischemic cardiomyopathy and chronic systolic heart failure who presents with a two month history of worsening shortness of breath and a four-day history of palpitations. He is noted to be in atrial flutter with 2:1 AV conduction. Chest x-ray shows pulmonary vascular congestion and BNP is elevated at 7790, consistent with acute decompensated heart failure. He previously had a Lexiscan SPECT 05/27/2015 which showed a moderate-sized nonreversible defect in the distal septal and inferior agrawal, and no reversible defects. 14 point review of systems negative other than per HPI. Past Medical History Chronic systolic heart failure Ischemic cardiomyopathy - LVEF<25% Coronary artery disease, history of coronary stenting - details unknown Hypertension Dyslipidemia History of stroke History of prostate cancer Past Surgical History Past Surgical Hx: other (prostatectomy) Family History Significant Family History: no pertinent family hx Social History Alcohol Use: none Smoking Status: Never smoker Drug Use: none Exam/Review of Systems Vital Signs Vitals Vital Signs Date Time Temp Pulse Resp B/P Pulse Ox O2 Delivery O2 Flow Rate FiO2 06/08/16 16:58 3.0 06/08/16 16:58 130 18 97 Nasal Cannula 06/08/16 16:23 97.5 121/72 06/08/16 05:17 32 Intake and Output 06/07/16 06/07/16 06/08/16 15:00 23:00 07:00 Intake Total 80 ml Balance 80 ml Exam Constitutional: alert, well developed Psych: nl mood/affect, no complaints Head: atraumatic, normocephalic Eyes: nl conjunctiva, nl lids ENMT: nl external ears & nose, nl nasal mucosa & septum Neck: jvd, non-tender, supple Respiratory: diminished breath sounds, No wheezing Cardiovascular: other (tachycardic) Gastrointestinal: non-tender, soft Musculoskeletal: nl extremities to inspection Extremities: No clubbing, No edema Neurological: nl mental status, nl speech Results Result Diagram: 06/08/16 0555 06/08/16 0555 Results 24 hrs Laboratory Tests Test 06/07/16 19:20 06/08/16 05:55 Activated Partial Thromboplast Time 35.6 H Alanine Aminotransferase (ALT/SGPT) 355 H Albumin 3.7 Albumin/Globulin Ratio 1.23 Alkaline Phosphatase 178 H Anion Gap 16 17 H Aspartate Amino Transf (AST/SGOT) 247 H B-Type Natriuretic Peptide 7720 H Basophils # 0.0 0.0 Basophils % 0.3 0.3 Blood Urea Nitrogen 41 H 42 H Calcium Level 9.4 8.8 Carbon Dioxide Level 24 24 Chloride Level 107 108 Creatinine 1.13 1.05 Direct Bilirubin 0.00 Eosinophils # 0.2 0.0 Eosinophils % 2.9 0.3 Globulin 3.00 Glucose Level 107 110 Hematocrit 46.2 45.4 Hemoglobin 15.4 15.2 Hepatitis B Core Total Antibody REACTIVE H Hepatitis B Surface Antigen NEGATIVE Hepatitis C Antibody NEGATIVE INR International Normalized Ratio 1.18 Indirect Bilirubin 0.7 Lymphocytes # 1.6 1.0 Lymphocytes % 26.1 17.3 Mean Corpuscular Hemoglobin 30.7 31.3 Mean Corpuscular Hemoglobin Concent 33.3 33.5 Mean Corpuscular Volume 92.2 93.4 Mean Platelet Volume 13.7 #H 14.4 H Monocytes # 0.5 0.3 Monocytes % 7.3 5.2 Neutrophils # 3.9 4.6 Neutrophils % 63.1 76.4 Nucleated Red Blood Cells # 0.0 0.0 Nucleated Red Blood Cells % 0.0 0.0 Platelet Count 131 L 123 L Potassium Level 4.1 4.5 Prothrombin Time 15.1 H Prothrombin Time Ratio 1.2 Red Blood Count 5.01 4.86 Red Cell Distribution Width 15.4 H 15.7 H Sodium Level 143 144 Thyroid Stimulating Hormone (TSH) 3.750 Total Bilirubin 0.7 Total Protein 6.7 Troponin I 0.034 White Blood Count 6.2 6.0 Magnesium Level 2.1 Phosphorus Level 4.0 Medications Medications Current Medications Aspirin (Aspirin) 81 mg DAILY PO Last administered on 06/08/16 09:02; Admin Dose 81 MG; Start 06/08/16 at 09:00 Lisinopril (Zestril) 5 mg DAILY PO Last administered on 06/08/16 09:06; Admin Dose 5 MG; Start 06/08/16 at 09:00 Metoprolol Succinate (Toprol Xl) 50 mg DAILY PO Last administered on 06/08/16 09:04; Admin Dose 50 MG; Start 06/08/16 at 03:30 Nitroglycerin (Nitroglycerin (Sl Tab) 0.4 Mg) 1 tab Q5M PRN SL CHEST PAIN; Start 06/07/16 at 21:30 Enoxaparin Sodium (Lovenox) 40 mg DAILY SC Last administered on 06/08/16 09:10 ; Admin Dose 40 MG; Start 06/08/16 at 09:00 LAMAR RUTH MD Jun 08, 2016 19:22
[2016-06-08] MEDS ORDERED: DIGOXIN 0.25 MG TAB PO ONE (19:30)
[2016-06-08] MEDS ORDERED: DILTIAZEM 60 MG TAB PO PRN (19:30)
[2016-06-08] MEDS: RIVAROXABAN 20 MG TABLET PO SCH (19:30)
[2016-06-08] MEDS: SENNA TAB PO SCH (21:00)
[2016-06-08] MEDS: DOCUSATE SODIUM 100 MG CAP PO SCH (21:00)
[2016-06-09] VITALS (12 sets, daily range): BP systolic 96–121; BP diastolic 56–90; PULSE 86–135; RESP 16–22
[2016-06-09] MEDS: LEVALBUTEROL (NEB) 1.25 MG/0.5 ML AMP HHN SCH ×6 (01:54→20:25)
[2016-06-09 04:23] LABS: ADD SCAN DIFF NO
[2016-06-09 04:28] LABS: ALBUMIN 3.3 g/dl (3.3-4.9)
[2016-06-09 04:29] LABS: INR 1.16; POTASSIUM 4.1 mmol/L (3.5-5.1); PROTIME 14.8 Sec (12.2-14.2); PT RATIO 1.2
[2016-06-09 04:30] LABS: PARTIAL THROMBOPLASTIN TIME 30.3 Sec (25.0-35.0)
[2016-06-09] MEDS ORDERED: ASPIRIN 300 MG SUPP PR SCH (04:30)
[2016-06-09] MEDS ORDERED: ASPIRIN 600 MG SUPP PR ONE (04:30)
[2016-06-09 04:31] LABS: ALBUMIN/GLOBULIN RATIO 1.17; BILIRUBIN,INDIRECT 0.6 mg/dl (0-1.1); BILIRUBIN,TOTAL 0.6 mg/dl (0.2-1.3); CREATININE 1.11 mg/dl (0.61-1.24); TOTAL PROTEIN 6.1 g/dl (6.1-8.1)
[2016-06-09 04:32] LABS: CHOL/HDL RATIO 3.8 RATIO
[2016-06-09 04:37] LABS: BASOPHILS % 0.3 % (0.0-2.0); EOSINOPHILS # 0.1 10^3/ul (0.0-0.5); EOSINOPHILS % 0.9 % (0.0-7.0); HEMATOCRIT 45.7 % (42.0-52.0); HEMOGLOBIN 15.4 g/dl (14.0-18.0); LYMPHOCYTES # 1.1 10^3/ul (0.8-2.9); LYMPHOCYTES % 17.5 % (15.0-51.0); MEAN CORPUSCULAR HEMOGLOBIN 30.9 pg (29.0-33.0); MEAN CORPUSCULAR HGB CONC 33.7 g/dl (32.0-37.0); MEAN CORPUSCULAR VOLUME 91.8 fl (82.0-101.0); MONOCYTE # 0.4 10^3/ul (0.3-0.9); MONOCYTES % 6.3 % (0.0-11.0); NEUTROPHIL # 4.7 10^3/ul (1.6-7.5); NEUTROPHILS % 74.7 % (39.0-77.0); NUCLEATED RED BLOOD CELLS% 0.3 /100WBC (0.0-0.0); PLATELET COUNT 123 10^3/UL (140-415); RED BLOOD COUNT 4.98 10^6/ul (4.70-6.10); RED CELL DISTRIBUTION WIDTH 15.9 % (11.5-14.5); WHITE BLOOD COUNT 6.3 10^3/ul (4.8-10.8)
[2016-06-09 04:41] LABS: CK-MB 0.64 ng/ml (0.0-2.4)
[2016-06-09 04:43] LABS: TROPONIN-I 0.031 ng/ml (0.00-0.12)
--- NOTE | 2016-06-09 04:57 | RADRPT ---
PROCEDURE: Noncontrast CT Head. CLINICAL INDICATION: Code Stroke. TECHNIQUE: Noncontrast CT of the head was obtained. The administered radiation dose was CTDI vol = 45 mGy, DLP = 810 mGy-cm. COMPARISON: No pertinent prior examinations were submitted for comparison. FINDINGS: The ventricles and cortical sulci are mild to moderately enlarged. There is mild to moderate decrea sed attenuation within the periventricular and subcortical white matter compatible with chronic micr ovascular changes. There is subtle loss of the roberts-white differentiation and mild low attenuation throughout the left middle cerebral artery territory. This is seen most prominently along the left frontal cortex and i nsula. There is no evidence of acute intracranial hemorrhage. There is no significant mass effect or midline shift. A small chronic right frontal cortical infarct is noted. The orbits are within normal limits. The paranasal sinuses are well aerated. No destructive osseous lesion is identified. IMPRESSION: Recent, acute to subacute left middle cerebral artery territory infarct without hemorrhage. Underlying mild to moderate diffuse parenchymal volume loss and chronic microvascular changes. Findings were discussed with nurse Jo Ann Espitia at approximately 06/09/2016 4:49:03 AM. RPTAT: HIKT .Flo Carrizales MD, MD Date Time Electronically viewed and signed by .Flo Carrizales MD, MD on 06/09/2016 04:57 .T/
[2016-06-09 05:30] LABS: AADO2 Arterial 210.3 mmHg (7.0-24.0); Allen Test ACCEPTAB; Arterial Base Excess 0.3 mmol/L (-3.0-3); Arterial COHb 0.3 % (0.0-3.0); Arterial Fraction of Oxyhgb 98.3 % (93.0-99.0); Arterial HCO3 25.8 mmol/L (22.0-26.0); Arterial MetHb 0.3 % (0.0-1.5); MODE SIMPLE MASK
[2016-06-09] MEDS: METOPROLOL 50 MG TAB PO SCH ×4 (05:35→17:00)
[2016-06-09] MEDS ORDERED: DIGOXIN 0.25 MG TAB PO ONE ×2 (06:00)
--- NOTE | 2016-06-09 06:35 | RADRPT ---
PROCEDURE: XR Chest. CLINICAL INDICATION: Code stroke TECHNIQUE: An AP view of the chest was obtained. COMPARISON: None. FINDINGS: There is prominence of the interstitial and central pulmonary vascular markings with small bilatera l pleural effusions. No focal airspace opacification or pneumothorax is seen. The cardiomediastin al silhouette is mildly enlarged . Calcifications are seen within the aortic arch. The osseous str uctures demonstrate senescent changes. IMPRESSION: 1. Findings suggestive of pulmonary vascular congestion with small bilateral pleural effusions. No significant interval change. 2. Mild cardiomegaly and aortic atherosclerosis. RPTAT: HH .Alley Soriano MD, MD Date Time Electronically viewed and signed by .Alley Soriano MD, MD on 06/09/2016 06:34 .G/
[2016-06-09] MEDS: FUROSEMIDE 20 MG INJ IV SCH (08:10)
[2016-06-09] MEDS: DOCUSATE SODIUM 100 MG CAP PO SCH ×2 (08:57→20:49)
[2016-06-09] MEDS: ASPIRIN 81 MG TAB PO SCH (08:57)
[2016-06-09] MEDS: SENNA TAB PO SCH ×2 (08:58→20:50)
[2016-06-09] MEDS: LISINOPRIL 5 MG TAB PO SCH (08:58)
--- NOTE | 2016-06-09 09:29 | RADRPT ---
Echocardiogram Report Patient Name: ROCKY YOUNG Gender: Male Date: 1935 Study Date: 09-Jun-2016 Double Back Operator: Wilfrido Galan [facility] Location: [id number] Ref. Physician: SADIA SON Quality: Adequate Procedures: Transthoracic echocardiogram with complete 2D, M-Mode, and doppler examination. Indications: Chest Pain. 2D/M Mode Doppler Measurement Value Normal Ranges Measurement Value Normal Ranges LVIDd 2D 5.7 3.5 - 5.6 cm BRITTANIE Vmax 2.3 cm2 LVIDs 2D 5.1 2.1 - 4.1 cm AV Peak Kranthi 0.8 m/sec FS 2D 10.0 % AV Peak PG 3.0 mmHg LVPWd 2D 1.1 0.6 - 1.1 cm AI Peak PG 46.0 mmHg IVSd 2D 0.9 0.6 - 1.1 cm AI Peak Kranthi 3.4 m/sec IVS/LVPW 2D 0.8 AI PHT 658.0 msec AoR Diam 2D 2.9 2.0 - 3.7 cm LVOT Peak Kranthi 0.5 m/sec LA/Ao 2D 2 0 - 1 LVOT Peak PG 1.0 mmHg LA Dimen 2D 4.8 2.3 - 4.0 cm TR Peak Kranthi 2.7 m/sec LVOT Diam 2.3 cm TR Peak PG 30.0 mmHg LVOT Area 4.2 cm2 RVSP 45.0 mmHg Findings Left Ventricle: Mild concentric left ventricular hypertrophy. Mild enlargement of left ventricle cavity. Severe global left ventricular systolic dysfunction. Ejection fraction is visually estimated at 15 %. Abnormal Diastolic Function. Right Ventricle: Normal right ventricular size. Moderate right ventricular systolic dysfunction. Left Atrium: There is moderate enlargement of left atrium. Right Atrium: There is mild enlargement of right atrium. Mitral Valve: Mitral valve leaflets appear mildly thickened. Mild mitral annular calcification. Mild to moderate mitral valve regurgitation. Aortic Valve: No hemodynamically significant aortic stenosis by doppler. Aortic cusps appear mildly calcified. Mild aortic valve regurgitation. Tricuspid Valve: Normal appearance of the tricuspid valve. Estimated peak PA systolic pressure 45 mmHg. There is mild tricuspid regurgitation. Pulmonic Valve: Pulmonic valve not well visualized. Pericardium: Normal pericardium with no significant pericardial effusion. Aorta: Normal aortic root. IVC: Dilated IVC without respiratory collapse consistent with elevated right atrial pressure. Conclusions 1.Mild concentric left ventricular hypertrophy. Mild enlargement of left ventricle cavity. Severe global left ventricular systolic dysfunction. Ejection fraction is visually estimated at 15 %. Abnormal Diastolic Function. 2.There is moderate enlargement of left atrium. 3.There is mild enlargement of right atrium. 4.Mitral valve leaflets appear mildly thickened. Mild mitral annular calcification. Mild to moderate mitral valve regurgitation. 5.No hemodynamically significant aortic stenosis by doppler. Aortic cusps appear mildly calcified. Mild aortic valve regurgitation. 6.Normal appearance of the tricuspid valve. Estimated peak PA systolic pressure 45 mmHg. There is mild tricuspid regurgitation. 7.Dilated IVC without respiratory collapse consistent with elevated right atrial pressure. Electronically Signed By: Rock Green 09-Jun-2016 09:28:42 -0700 Patient Name: ROCKY YOUNG Study Date: 09-Jun-2016 [id number]
[2016-06-09] MEDS: LORAZEPAM 2 MG INJ IV PRN ×2 (11:23→20:16)
[2016-06-09] MEDS ORDERED: DILTIAZEM 25 MG INJ IV ONE (12:00)
[2016-06-09] MEDS ORDERED: DILTIAZEM-D5W 125MG/125ML DRIP 125 ML IV SCH ×3 (12:00→14:13)
[2016-06-09] MEDS ORDERED: DIGOXIN 0.25 MG TAB PO SCH (13:00)
--- NOTE | 2016-06-09 13:17 | RADRPT ---
PROCEDURE: MR Brain with and without contrast. CLINICAL INDICATION: New onset right-sided weakness. Arterial flutter. TECHNIQUE: An MRI of the brain was performed on a GE 1.5 kris scanner utilizing the following seq uences: Sagittal and axial T1 weighted, axial T2 weighted, axial FLAIR, coronal GRE, and axial diffu dudley weighted with ADC mapping. Additionally, postcontrast coronal and axial T1-weighted sequences w ere performed after 20 cc of Magnevist. were given intravenously without complication. COMPARISON: CT head 06/09/2016. FINDINGS: There is a large area of restricted diffusion in the left MCA territory involving the lateral left f rontal lobe, left frontal operculum and anterior insula in keeping with acute infarct. There is no e vidence of intracranial hemorrhage, mass effect, or midline shift. No extra-axial fluid collections are seen. Mild diffuse volume loss is evident. There is a small focus of chronic infarct in the ri ght centrum semi ovale. Increased T2-weighted/FLAIR signal intensity is noted within the periventri cular and deep white matter, consistent with mild microvascular ischemic disease. The signal intens ity is normal the brainstem and cerebellum. No hypointense signal abnormalities are seen on the GRE images to suggest the presence of blood degradation products. Normal flow voids are visible in the proximal intracranial arteries and dural sinuses, indicating patency. There is marked gyriform enha ncement in the area of left frontal infarct. The visualized paranasal sinuses are grossly clear. IMPRESSION: 1. Large area of acute infarct within the left frontal lobe involving the left frontal operculum and anterior insular cortex in keeping with acute to subacute left MCA territory infarct. Marked gyrif orm enhancement in the area of evolving infarction. No additional areas of abnormal contrast enhance ment. 2. Mild generalized volume loss. Mild chronic microvascular ischemic changes. RPTAT: BB .Frederic Stone MD, MD Date Time Electronically viewed and signed by .Frederic Stone MD, on 06/09/2016 13:16 .O/
--- NOTE | 2016-06-09 13:26 | RADRPT ---
PROCEDURE: MRA Brain. CLINICAL INDICATION: Stroke TECHNIQUE: An MRA of the brain was performed on a GE short bore high-definition 1.5 kris scanner 3-D [id number] MR angiography technique. Source and MIP images were reviewed. COMPARISON: None FINDINGS: There is short segment occlusion of the superior division of the M2 segment of left MCA with reconst itution. There is significant attenuation of the opercular posterior temporal cortical branches of the left MCA. There is mild contour irregularity of bilateral ICA with no hemodynamically significant stenosis. T he right middle cerebral and the anterior cerebral arteries are also patent and normal in caliber wi th no significant luminal irregularity or narrowing identified. The vertebral arteries, basilar art tavon, and superior cerebellar arteries are visualized and normal in appearance. There is a left domin ant vertebral basilar arterial system. The posterior cerebral arteries are patent and normal in ankita earance bilaterally. No aneurysms are detected. IMPRESSION: 1. Short segment occlusion of the superior division of the M2 segment. Significant attenuation of the opercular and posterior temporal cortical branches of the left MCA. 2. No cerebral aneurysms or vascular malformations. RPTAT: BB .Frederic Stone MD, Date Time Electronically viewed and signed by .Frederic Stone MD, on 06/09/2016 13:25 .O/
--- NOTE | 2016-06-09 13:40 | RADRPT ---
PROCEDURE: MRA Neck with and without contrast. CLINICAL INDICATION: Stroke TECHNIQUE: An MRA of the major cervical arteries was performed on the 1.5 kris scanner utilizing axial 2D time of flight, 3-D [id number]-[id number] through the carotid bifurcations, and dynamic contrast e nhanced 3-D MR angiography technique. Source and MIPPED images were reviewed. 20 cc of Magnevist we re given intravenously without complication. COMPARISON: No prior studies are available for comparison. FINDINGS: The origins of the great vessels off the aortic arch are patent and normal in caliber. The common c arotid arteries are patent and normal in caliber. There is mild contour irregularity at the left ca rotid bulb and proximal ICA with no hemodynamically significant stenosis. The left carotid bulbs ap pear normal, and no hemodynamically significant stenosis is evident within either internal carotid a rtery. The vertebral arteries are patent and normal in caliber bilaterally. There is no evidence o f vascular stenosis or occlusion. IMPRESSION: No hemodynamically significant stenosis or occlusion in the neck vessels. RPTAT: BB .Frederic Stone MD, MD Date Time Electronically viewed and signed by .Frederic Stone MD, on 06/09/2016 13:40 .O/
--- NOTE | 2016-06-09 15:59 | RADRPT ---
PROCEDURE: MRI soft tissue neck without and with contrast CLINICAL INDICATION: Right-sided weakness, neck pain TECHNIQUE: Multiplanar MRI of the soft tissues of the neck was performed on a 3.0 T scanner with th e following sequences obtained: T1-weighted, T2-weighted, STIR, postcontrast T1-weighted. 20 cc Ma gnevist intravenous contrast administered. COMPARISON: None available FINDINGS: A focal area of increased T2-weighted STIR signal intensity is identified in the left aspect of the oral tongue which measures approximately 1 x 1 x 1.1 cm (AP x transverse x CC) with suggestion of fo arlin enhancement in this area. The possibility of a lesion/neoplasm is raised. No soft tissue edema or focal mass lesion, enlarged lymph node meeting size criteria or abnormal appearing lymph node is identified throughout the soft tissues of the neck. The pharynx, and larynx are unremarkable. The thyroid gland and rest of visceral space structures are unremarkable. The parapharyngeal and retro pharyngeal spaces are clear. The carotid spaces are unremarkable. The parotid and submandibular gl ands are unremarkable. 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 Imaged skull base appears intac t. The perivertebral and posterior cervical spaces are unremarkable. Imaged orbits are grossly unr emarkable. Mastoids and imaged paranasal sinuses are grossly clear. Partially imaged is the known acute/recent left MCA territory infarct with associated enhancement. IMPRESSION: 1. No acute abnormality identified in the soft tissues of the neck. 2. 1 cm focal area of signal abnormality with suggestion of enhancement at the left aspect of the o ral tongue, raising possibility of lesion/neoplasm. Correlation with direct visualization is recomm ended. 3. No lymphadenopathy identified throughout the soft tissues of the neck. RPTAT: VV .Evgeny Narayanan MD, MD Date Time Electronically viewed and signed by .Evgeny Narayanan MD, MD on 06/09/2016 15:59 .O/
[2016-06-09] MEDS: RIVAROXABAN 20 MG TABLET PO SCH (17:00)
--- NOTE | 2016-06-09 17:27 | PN ---
Date/Time of Note Date/Time of Note DATE: 06/09/16 TIME: 17:23 Assessment/Plan VTE Prophylaxis VTE Prophylaxis Intervention: LMWH Lines/Catheters IV [facility] Saline Lock Urinary Cath still in place: No Assessment/Plan Chief Complaint/Hosp Course 1) Atrial flutter-stable Cardiology consult appreciated Continue Cardizem drip 2) Acute encephalopathy secondary to left MCA territory infarct Code stroke was called at 4 AM, telemetry neurology evaluate the patient the last time patient was seen normal reportedly was at 8 PM hence no TPA was given MRI does show a left MCA territory infarct Neurology consultation 3) CHF exacerbation Patient is a history of an EF less than 25% Continue diuresis, cards consult appreciated 4) 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 5) Atypical chest pain No evidence of ACS at this time, troponins are negative Prophylaxis: Lovenox Problems: Subjective 24 Hr Interval Summary Subjective hx not possible: pt non-verbal Exam/Review of Systems Vital Signs Vitals Vital Signs Date Time Temp Pulse Resp B/P Pulse Ox O2 Delivery O2 Flow Rate FiO2 06/09/16 16:55 133 20 98 Nasal Cannula 4.0 06/09/16 15:19 98.0 118/86 06/08/16 05:17 32 Intake and Output 06/08/16 06/08/16 06/09/16 15:00 23:00 07:00 Intake Total 650 ml 100 ml Output Total 1000 ml Balance -350 ml 100 ml Exam Constitutional: non-verbal Psych: confusion Respiratory: clear to auscultation Cardiovascular: regular rate and rhythm Gastrointestinal: soft, No distended Musculoskeletal: nl extremities to inspection Results Result Diagram: 06/09/16 0405 06/09/16 0405 Results 24 hrs Laboratory Tests Test 06/08/16 20:05 06/09/16 03:56 06/09/16 04:05 06/09/16 04:10 Troponin I 0.035 0.031 Bedside Glucose 101 Activated Partial Thromboplast Time 30.3 Alanine Aminotransferase (ALT/SGPT) 560 H Albumin 3.3 Albumin/Globulin Ratio 1.17 Alkaline Phosphatase 210 H Anion Gap 17 H Aspartate Amino Transf (AST/SGOT) 447 #H Basophils # 0.0 Basophils % 0.3 Blood Urea Nitrogen 41 H Calcium Level 9.0 Carbon Dioxide Level 26 Chloride Level 106 Cholesterol Level 115 Cholesterol/HDL Ratio 3.8 Creatine Kinase 27 Creatine Kinase Index 2.4 Creatinine 1.11 Creatinine Kinase MB (Mass) 0.64 Direct Bilirubin 0.00 Eosinophils # 0.1 Eosinophils % 0.9 Globulin 2.80 Glucose Level 111 HDL Cholesterol 30 L Hematocrit 45.7 Hemoglobin 15.4 Hemoglobin A1c 5.3 INR International Normalized Ratio 1.16 Indirect Bilirubin 0.6 LDL Cholesterol, Calculated 63 Lymphocytes # 1.1 Lymphocytes % 17.5 Magnesium Level 2.1 Mean Corpuscular Hemoglobin 30.9 Mean Corpuscular Hemoglobin Concent 33.7 Mean Corpuscular Volume 91.8 Mean Platelet Volume 14.0 H Monocytes # 0.4 Monocytes % 6.3 Neutrophils # 4.7 Neutrophils % 74.7 Nucleated Red Blood Cells # 0.0 Nucleated Red Blood Cells % 0.3 H Platelet Count 123 L Potassium Level 4.1 Prothrombin Time 14.8 H Prothrombin Time Ratio 1.2 Red Blood Count 4.98 Red Cell Distribution Width 15.9 H Sodium Level 145 H Total Bilirubin 0.6 Total Protein 6.1 Triglycerides Level 109 White Blood Count 6.3 Arterial Blood HCO3 25.8 Arterial Blood Base Excess 0.3 Arterial Blood Oxygen Saturation 98.9 Babak Test ACCEPTAB Arterial Blood Gas Puncture Site Left Radial Arterial Blood Carboxyhemoglobin 0.3 Arterial Blood Date Drawn 06/09/2016 5:19:31 AM Arterial Blood Methemoglobin 0.3 Arterial Blood pCO2 (Temp correct) 45.0 Arterial Blood pH (Temp corrected) 7.377 Arterial Blood pO2 (Temp corrected) 175.2 H Blood Gas A-a O2 Differential 210.3 H Blood Gas Modality SIMPLE MASK Blood Gas Notified Time 06/09/2016 5:30:38 AM Blood Gas Notified Whom RTR Blood Gas Specimen Source Blood arterial Blood Gas Temperature 37.0 FiO2 61.0 Oxyhemoglobin Percent 98.3 Total Hemoglobin 16.0 Medications Medications Current Medications Aspirin (Aspirin) 81 mg DAILY PO Last administered on 06/08/16 09:02; Admin Dose 81 MG; Start 06/08/16 at 09:00 Lisinopril (Zestril) 5 mg DAILY PO Last administered on 06/08/16 09:06; Admin Dose 5 MG; Start 06/08/16 at 09:00 Metoprolol Tartrate (Lopressor) 50 mg Q6 PO ; Start 06/09/16 at 00:00 Diltiazem HCl (Cardizem) 60 mg Q6H PRN PO SBP>130; Start 06/08/16 at 19:30 Digoxin (Digoxin) 0.25 mg DAILY@13 PO ; Start 06/09/16 at 13:00 Furosemide (Lasix) 40 mg DAILY IV Last administered on 06/09/16 08:10; Admin Dose 40 MG; Start 06/09/16 at 09:00 Docusate Sodium (Colace) 100 mg BID PO ; Start 06/08/16 at 21:00 Senna (Senokot) 1 tab BID PO ; Start 06/08/16 at 21:00 Lorazepam 1 mg 1 mg Q6H PRN IV AGITATION/ANXIETY Last administered on 11:23; Admin Dose 1 MG; Start 06/09/16 at 11:10 Diltiazem HCl (Cardizem-D5W 125 Mg/125 ml Drip) 125 ml @ 5 mls/hr Q24H IV Last administered on 06/09/16 14:20; Admin Dose 5 MLS/HR; Start 06/09/16 at 14:13 SADIA SON Jun 09, 2016 17:27
[2016-06-09] MEDS: DILTIAZEM-D5W 125MG/125ML DRIP 125 ML IV SCH (18:02)
--- NOTE | 2016-06-09 18:27 | CONS ---
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 Typical atrial flutter - 2:1 AV conduction, onset >48 hours based on symptoms Acute on chronic systolic heart failure Ischemic cardiomyopathy - LVEF<25%, no reversible defects on Lexiscan SPECT April 2015 Chronic left bundle branch block Coronary artery disease, history of coronary stenting - details unknown Hypertension Dyslipidemia Transaminitis Recommendations: -continue Lasix 40mg IV daily -change digoxin to 0.25mg IV daily -continue diltiazem drip for heart rate control -discontinue lisinopril to avoid low blood pressures in setting of acute stroke -discontinue Xarelto due to risk for hemorrhagic conversion, resume anticoagulation when stable after acute stroke -holding atorvastatin in setting of transaminitis -will eventually also need evaluation for atrial flutter ablation and primary prevention ICD as outpatient -follow up neurology recommendations Problems: Consultation Date/Type/Reason Admit Date/Time Jun 07, 2016 at 21:23 Initial Consult Date Type of Consultation: Cardiology 24 HR Interval Summary Free Text/Dictation Patient noted to be lethargic this morning. Code stroke was activated with subsequent head imaging showing acute left MCA stroke. Detailed Summary Additional Comments Unable to obtain review of systems, patient with altered mental status. Exam/Review of Systems Vital Signs Vitals Vital Signs Date Time Temp Pulse Resp B/P Pulse Ox O2 Delivery O2 Flow Rate FiO2 06/09/16 16:55 133 20 98 Nasal Cannula 4.0 06/09/16 15:19 98.0 118/86 06/08/16 05:17 32 Intake and Output 06/08/16 06/08/16 06/09/16 15:00 23:00 07:00 Intake Total 650 ml 100 ml Output Total 1000 ml Balance -350 ml 100 ml Exam Constitutional: lethargic Psych: not nl mood/affect Head: atraumatic, normocephalic Eyes: nl conjunctiva, nl lids ENMT: nl external ears & nose, nl nasal mucosa & septum Neck: jvd, non-tender, supple Respiratory: diminished breath sounds, No wheezing Cardiovascular: other (tachycardic) Gastrointestinal: non-tender, soft Musculoskeletal: nl extremities to inspection Extremities: No clubbing, No edema Neurological: not nl mental status, nonverbal Results Result Diagram: 06/09/16 0405 06/09/16 0405 Results 24 hrs Laboratory Tests Test 06/08/16 20:05 06/09/16 03:56 06/09/16 04:05 06/09/16 04:10 Troponin I 0.035 0.031 Bedside Glucose 101 Activated Partial Thromboplast Time 30.3 Alanine Aminotransferase (ALT/SGPT) 560 H Albumin 3.3 Albumin/Globulin Ratio 1.17 Alkaline Phosphatase 210 H Anion Gap 17 H Aspartate Amino Transf (AST/SGOT) 447 #H Basophils # 0.0 Basophils % 0.3 Blood Urea Nitrogen 41 H Calcium Level 9.0 Carbon Dioxide Level 26 Chloride Level 106 Cholesterol Level 115 Cholesterol/HDL Ratio 3.8 Creatine Kinase 27 Creatine Kinase Index 2.4 Creatinine 1.11 Creatinine Kinase MB (Mass) 0.64 Direct Bilirubin 0.00 Eosinophils # 0.1 Eosinophils % 0.9 Globulin 2.80 Glucose Level 111 HDL Cholesterol 30 L Hematocrit 45.7 Hemoglobin 15.4 Hemoglobin A1c 5.3 INR International Normalized Ratio 1.16 Indirect Bilirubin 0.6 LDL Cholesterol, Calculated 63 Lymphocytes # 1.1 Lymphocytes % 17.5 Magnesium Level 2.1 Mean Corpuscular Hemoglobin 30.9 Mean Corpuscular Hemoglobin Concent 33.7 Mean Corpuscular Volume 91.8 Mean Platelet Volume 14.0 H Monocytes # 0.4 Monocytes % 6.3 Neutrophils # 4.7 Neutrophils % 74.7 Nucleated Red Blood Cells # 0.0 Nucleated Red Blood Cells % 0.3 H Platelet Count 123 L Potassium Level 4.1 Prothrombin Time 14.8 H Prothrombin Time Ratio 1.2 Red Blood Count 4.98 Red Cell Distribution Width 15.9 H Sodium Level 145 H Total Bilirubin 0.6 Total Protein 6.1 Triglycerides Level 109 White Blood Count 6.3 Arterial Blood HCO3 25.8 Arterial Blood Base Excess 0.3 Arterial Blood Oxygen Saturation 98.9 Babak Test ACCEPTAB Arterial Blood Gas Puncture Site Left Radial Arterial Blood Carboxyhemoglobin 0.3 Arterial Blood Date Drawn 06/09/2016 5:19:31 AM Arterial Blood Methemoglobin 0.3 Arterial Blood pCO2 (Temp correct) 45.0 Arterial Blood pH (Temp corrected) 7.377 Arterial Blood pO2 (Temp corrected) 175.2 H Blood Gas A-a O2 Differential 210.3 H Blood Gas Modality SIMPLE MASK Blood Gas Notified Time 06/09/2016 5:30:38 AM Blood Gas Notified Whom RTR Blood Gas Specimen Source Blood arterial Blood Gas Temperature 37.0 FiO2 61.0 Oxyhemoglobin Percent 98.3 Total Hemoglobin 16.0 Medications Medications Current Medications Aspirin (Aspirin) 81 mg DAILY PO Last administered on 06/08/16 09:02; Admin Dose 81 MG; Start 06/08/16 at 09:00 Lisinopril (Zestril) 5 mg DAILY PO Last administered on 06/08/16 09:06; Admin Dose 5 MG; Start 06/08/16 at 09:00 Metoprolol Tartrate (Lopressor) 50 mg Q6 PO ; Start 06/09/16 at 00:00 Diltiazem HCl (Cardizem) 60 mg Q6H PRN PO SBP>130; Start 06/08/16 at 19:30 Digoxin (Digoxin) 0.25 mg DAILY@13 PO ; Start 06/09/16 at 13:00 Furosemide (Lasix) 40 mg DAILY IV Last administered on 06/09/16 08:10; Admin Dose 40 MG; Start 06/09/16 at 09:00 Docusate Sodium (Colace) 100 mg BID PO ; Start 06/08/16 at 21:00 Senna (Senokot) 1 tab BID PO ; Start 06/08/16 at 21:00 Lorazepam 1 mg 1 mg Q6H PRN IV AGITATION/ANXIETY Last administered on 11:23; Admin Dose 1 MG; Start 06/09/16 at 11:10 Diltiazem HCl (Cardizem-D5W 125 Mg/125 ml Drip) 125 ml @ 5 mls/hr TITRATE IV Last administered on 06/09/16 18:02; Admin Dose 10 MLS/HR; Start 06/09/16 at 17 :40 LAMAR RUTH MD Jun 09, 2016 18:26
--- NOTE | 2016-06-09 19:27 | CONS ---
DATE OF ADMISSION: 06/07/2016 DATE OF CONSULTATION: 06/09/2016 TYPE OF CONSULTATION: Neurology. Thank you, Dr. Yeager, for your kind referral for evaluation of acute stroke. HISTORY OF PRESENT ILLNESS: The patient is a 80-year-old gentleman who was admitted 2 days ago with shortness of breath, gradually worsening, also some dyspnea on exertion and chest pain. He was fou nd to have atrial flutter, pulmonary edema, and congestive heart failure. Electric Sign Wirer saw the jennifer ent and put him on anticoagulation yesterday, but this morning, the patient was found to have right- sided weakness and being aphasic. MRI of the brain was done showing large left MCA territory stroke . MRA of the neck was negative and MRA of the brain shows a small segment occlusion of the M2 segme nt on the left. Electric Sign Wirer saw the patient and discontinued anticoagulation because of risk of he morrhagic conversion. PAST MEDICAL HISTORY: His other medical problems are atrial flutter, acute on chronic congestive he art failure, ischemic cardiomyopathy, less than 25% ejection fraction, coronary artery disease, hype rtension, dyslipidemia, and transaminitis. Also includes prostate cancer. SOCIAL HISTORY: No alcohol, tobacco, drug use. FAMILY HISTORY: Hypertension. REVIEW OF SYSTEMS: Unable to obtain secondary to patient's aphasia. LABORATORY DATA: Shows platelets 123, normal CBC otherwise. Sodium 145, BUN 41, creatinine 1.1, T 447, ALT 560, alkaline phosphatase 210. Rest of comprehensive metabolic panel within normal limit s. Troponins negative. LDL 63. Cholesterol 115. ALLERGIES: HE IS NOT ALLERGIC TO ANY MEDICATIONS. CURRENT MEDICATIONS: 1. Digoxin. 2. Diltiazem. 3. Lasix. 4. Ativan p.r.n. 5. Aspirin 81 mg. 6. Albuterol. PHYSICAL EXAMINATION: VITAL SIGNS: Temperature 98.0, 133 pulse, 20 respirations, 118/86 blood pressure. GENERAL: Not in acute distress, lying in bed. HEENT: Normocephalic, atraumatic head. NECK: No carotid bruits. No thyromegaly. LUNGS: Clear to auscultation bilaterally. CARDIAC: Tachycardia. ABDOMEN: Soft. Present bowel sounds. EXTREMITIES: No cyanosis, clubbing, or edema. NEUROLOGIC: He is awake, alert, looks bilaterally. Follows commands only with multiple visual prom pting, not verbal. No response to visual threat from the right. Pupils reactive from 3 to 2 mm melo aterally. Extraocular movements intact. Symmetrical face. Corneal reflexes present bilaterally. Gag is present. Motor strength examination shows flaccid tone and no movements in the right upper e xtremity. The patient withdraws right lower extremity to noxious stimuli and moves left side sponta neously and to noxious stimuli as well. Deep tendon reflexes 2+ upper extremities and knees, absent ankle jerks, upgoing toe on the right and equivocal on the left. Coordination seems to be preserve d when he is reaching for objects with his left hand. IMPRESSION: Acute ischemic stroke in the left middle cerebral artery territory, likely cardioemboli c, given severe cardiomyopathy and global hypokinesis and atrial flutter. Continue current treatmen t. Usually, it is okay to allow elevated blood pressure in the first few days after acute stroke, t hen obtain control. The blood pressure could be as high as 220/120, but in context of patient's con gestive heart failure, I would follow recommendation of time motion analyst regarding blood pressure parame ters. Continue aspirin. I would not use anticoagulation currently because of risk of hemorrhagic t ransformation. Will consider if the patient is stable in 2 weeks from now. I would not use statin for currently because of transaminitis, but if liver function improves. Please consider. Keep jennifer ent euglycemic. Continue current treatment otherwise. Speech therapy, swallow evaluation, and phys ical therapy. Thank you very much for this interesting consultation. Dictated By: DAVID REBOLLAR/ESTELLA Conf#: [id number] DID#: [id number] CC: SADIA YEAGER MD; SHI DOOLEY MD;*EndCC*
[2016-06-09] MEDS ORDERED: hydrALAzine 20 MG INJ IV PRN (20:00)
--- NOTE | 2016-06-09 21:49 | RADRPT ---
PROCEDURE: Chest. CLINICAL INDICATION: Chest pain. TECHNIQUE: Single frontal view of the chest was obtained. COMPARISON: 06/09/2016. FINDINGS: The cardiac silhouette is enlarged. The aortic arch is calcified. There is pulmonary venous conges tion. There is no pneumothorax. IMPRESSION: Moderate cardiomegaly and pulmonary venous congestion, unchanged. Aortic atherosclerosis. .Jd Larkin MD, MD Date Time Electronically viewed and signed by .Jd Larkin MD, MD on 06/09/2016 21:49 .T/
[2016-06-10] VITALS (21 sets, daily range): BP systolic 100–135; BP diastolic 66–89; PULSE 68–120; RESP 14–21
[2016-06-10] MEDS: LEVALBUTEROL (NEB) 1.25 MG/0.5 ML AMP HHN SCH ×6 (01:08→21:05)
[2016-06-10] MEDS: DILTIAZEM-D5W 125MG/125ML DRIP 125 ML IV SCH ×3 (01:27→18:11)
[2016-06-10 07:11] LABS: ADD SCAN DIFF NO
[2016-06-10 07:15] LABS: BASOPHILS % 0.2 % (0.0-2.0); EOSINOPHILS # 0.1 10^3/ul (0.0-0.5); EOSINOPHILS % 1.3 % (0.0-7.0); HEMATOCRIT 42.5 % (42.0-52.0); HEMOGLOBIN 14.4 g/dl (14.0-18.0); LYMPHOCYTES # 0.8 10^3/ul (0.8-2.9); LYMPHOCYTES % 8.6 % (15.0-51.0); MEAN CORPUSCULAR HEMOGLOBIN 31.2 pg (29.0-33.0); MEAN CORPUSCULAR HGB CONC 33.9 g/dl (32.0-37.0); MEAN CORPUSCULAR VOLUME 92.2 fl (82.0-101.0); MEAN PLATELET VOLUME 13.7 fl (7.4-10.4); MONOCYTE # 0.5 10^3/ul (0.3-0.9); MONOCYTES % 5.4 % (0.0-11.0); NEUTROPHIL # 7.3 10^3/ul (1.6-7.5); NEUTROPHILS % 84.2 % (39.0-77.0); PLATELET COUNT 118 10^3/UL (140-415); RED BLOOD COUNT 4.61 10^6/ul (4.70-6.10); WHITE BLOOD COUNT 8.7 10^3/ul (4.8-10.8)
[2016-06-10 07:44] LABS: ALBUMIN 3.2 g/dl (3.3-4.9); POTASSIUM 3.8 mmol/L (3.5-5.1)
[2016-06-10 07:46] LABS: BILIRUBIN,INDIRECT 1.1 mg/dl (0-1.1); BILIRUBIN,TOTAL 1.1 mg/dl (0.2-1.3); CREATININE 0.98 mg/dl (0.61-1.24)
[2016-06-10 07:47] LABS: ALBUMIN/GLOBULIN RATIO 1.18; TOTAL PROTEIN 5.9 g/dl (6.1-8.1)
[2016-06-10 07:48] LABS: CALCIUM 8.7 mg/dl (8.4-10.2)
[2016-06-10] MEDS: ASPIRIN 81 MG TAB PO SCH (08:55)
[2016-06-10] MEDS: FUROSEMIDE 20 MG INJ IV SCH (08:58)
[2016-06-10] MEDS: DOCUSATE SODIUM 100 MG CAP PO SCH ×2 (09:00→19:52)
[2016-06-10] MEDS: SENNA TAB PO SCH ×2 (09:00→19:52)
[2016-06-10] MEDS: DIGOXIN 500 MCG INJ IV SCH (13:18)
--- NOTE | 2016-06-10 16:22 | PN ---
Date/Time of Note Date/Time of Note DATE: 06/10/16 TIME: 16:17 Assessment/Plan VTE Prophylaxis VTE Prophylaxis Intervention: LMWH Lines/Catheters IV Catheter Type (from Nrs): Saline Lock Urinary Cath still in place: No Assessment/Plan Chief Complaint/Hosp Course 1) Atrial flutter-stable Cardiology consult appreciated Continue Cardizem drip 2) Acute encephalopathy secondary to left MCA territory infarct Code stroke was called at 4 AM, telemetry neurology evaluate the patient the last time patient was seen normal reportedly was at 8 PM hence no TPA was given MRI does show a left MCA territory infarct Neurology consultation appreciated, PT and ST eval 3) CHF exacerbation Patient is a history of an EF less than 25% Continue diuresis, cards consult appreciated 4) 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 5) Atypical chest pain No evidence of ACS at this time, troponins are negative Prophylaxis: Lovenox Problems: Subjective 24 Hr Interval Summary Constitutional: disoriented Exam/Review of Systems Vital Signs Vitals Vital Signs Date Time Temp Pulse Resp B/P Pulse Ox O2 Delivery O2 Flow Rate FiO2 06/10/16 16:08 97.7 91 16 119/66 97 Nasal Cannula 4.0 06/08/16 05:17 32 Intake and Output 06/09/16 06/09/16 06/10/16 15:00 23:00 07:00 Intake Total 20 ml Output Total 800 ml 250 ml Balance -780 ml -250 ml Exam Psych: confusion Respiratory: clear to auscultation Cardiovascular: regular rate and rhythm Gastrointestinal: soft, No distended Musculoskeletal: nl extremities to inspection Results Result Diagram: 06/10/16 0635 06/10/16 0635 Results 24 hrs Laboratory Tests Test 06/10/16 06:35 Alanine Aminotransferase (ALT/SGPT) 501 H Albumin 3.2 L Albumin/Globulin Ratio 1.18 Alkaline Phosphatase 183 H Anion Gap 15 Aspartate Amino Transf (AST/SGOT) 276 H Basophils # 0.0 Basophils % 0.2 Blood Urea Nitrogen 35 H Calcium Level 8.7 Carbon Dioxide Level 29 Chloride Level 105 Creatinine 0.98 Direct Bilirubin 0.00 Eosinophils # 0.1 Eosinophils % 1.3 Globulin 2.70 Glucose Level 100 Hematocrit 42.5 Hemoglobin 14.4 Indirect Bilirubin 1.1 Lymphocytes # 0.8 Lymphocytes % 8.6 L Mean Corpuscular Hemoglobin 31.2 Mean Corpuscular Hemoglobin Concent 33.9 Mean Corpuscular Volume 92.2 Mean Platelet Volume 13.7 H Monocytes # 0.5 Monocytes % 5.4 Neutrophils # 7.3 Neutrophils % 84.2 H Nucleated Red Blood Cells # 0.0 Nucleated Red Blood Cells % 0.0 Platelet Count 118 L Potassium Level 3.8 Red Blood Count 4.61 L Red Cell Distribution Width 16.0 H Sodium Level 145 H Total Bilirubin 1.1 Total Protein 5.9 L White Blood Count 8.7 # Medications Medications Current Medications Aspirin (Aspirin) 81 mg DAILY PO Last administered on 06/10/16 08:55; Admin Dose 81 MG; Start 06/08/16 at 09:00 Furosemide (Lasix) 40 mg DAILY IV Last administered on 06/10/16 08:58; Admin Dose 40 MG; Start 06/09/16 at 09:00 Docusate Sodium (Colace) 100 mg BID PO ; Start 06/08/16 at 21:00 Senna (Senokot) 1 tab BID PO ; Start 06/08/16 at 21:00 Lorazepam 1 mg 1 mg Q6H PRN IV AGITATION/ANXIETY Last administered on 20:16; Admin Dose 1 MG; Start 06/09/16 at 11:10 Diltiazem HCl (Cardizem-D5W 125 Mg/125 ml Drip) 125 ml @ 5 mls/hr TITRATE IV Last administered on 06/10/16 13:17; Admin Dose 10 MLS/HR; Start 06/09/16 at 17 :40 Digoxin (Digoxin) 250 mcg DAILY@13 IV Last administered on 06/10/16 13:18; Admin Dose 250 MCG; Start 06/10/16 at 13:00 Hydralazine HCl (Apresoline) 10 mg Q6H PRN IV SBP > 220; Start 06/09/16 at 20: 00 SADIA SON Jun 10, 2016 16:22
--- NOTE | 2016-06-10 19:50 | CONS ---
Date/Time of Note Date/Time of Note DATE: 06/10/16 TIME: 19:46 Consult Date/Type/Reason Admit Date/Time Jun 07, 2016 at 21:23 Initial Consult Date Type of Consultation: neurology Reason for Consultation CVA Subjective no acute events, sleepy in AM, now awake Objective Vital Signs Date Time Temp Pulse Resp B/P Pulse Ox O2 Delivery O2 Flow Rate FiO2 06/10/16 19:08 98.3 47 18 132/77 97 06/10/16 18:06 Nasal Cannula 4.0 06/10/16 16:38 32 Intake and Output 06/09/16 06/09/16 06/10/16 15:00 23:00 07:00 Intake Total 20 ml Output Total 800 ml 250 ml Balance -780 ml -250 ml Results/Medications Result Diagram: 06/10/16 0635 06/10/16 0635 Results 24 hrs Laboratory Tests Test 06/10/16 06:35 Alanine Aminotransferase (ALT/SGPT) 501 H Albumin 3.2 L Albumin/Globulin Ratio 1.18 Alkaline Phosphatase 183 H Anion Gap 15 Aspartate Amino Transf (AST/SGOT) 276 H Basophils # 0.0 Basophils % 0.2 Blood Urea Nitrogen 35 H Calcium Level 8.7 Carbon Dioxide Level 29 Chloride Level 105 Creatinine 0.98 Direct Bilirubin 0.00 Eosinophils # 0.1 Eosinophils % 1.3 Globulin 2.70 Glucose Level 100 Hematocrit 42.5 Hemoglobin 14.4 Indirect Bilirubin 1.1 Lymphocytes # 0.8 Lymphocytes % 8.6 L Mean Corpuscular Hemoglobin 31.2 Mean Corpuscular Hemoglobin Concent 33.9 Mean Corpuscular Volume 92.2 Mean Platelet Volume 13.7 H Monocytes # 0.5 Monocytes % 5.4 Neutrophils # 7.3 Neutrophils % 84.2 H Nucleated Red Blood Cells # 0.0 Nucleated Red Blood Cells % 0.0 Platelet Count 118 L Potassium Level 3.8 Red Blood Count 4.61 L Red Cell Distribution Width 16.0 H Sodium Level 145 H Total Bilirubin 1.1 Total Protein 5.9 L White Blood Count 8.7 # Medications Current Medications Aspirin (Aspirin) 81 mg DAILY PO Last administered on 06/10/16 08:55; Admin Dose 81 MG; Start 06/08/16 at 09:00 Furosemide (Lasix) 40 mg DAILY IV Last administered on 06/10/16 08:58; Admin Dose 40 MG; Start 06/09/16 at 09:00 Docusate Sodium (Colace) 100 mg BID PO ; Start 06/08/16 at 21:00 Senna (Senokot) 1 tab BID PO ; Start 06/08/16 at 21:00 Lorazepam 1 mg 1 mg Q6H PRN IV AGITATION/ANXIETY Last administered on 20:16; Admin Dose 1 MG; Start 06/09/16 at 11:10 Diltiazem HCl (Cardizem-D5W 125 Mg/125 ml Drip) 125 ml @ 5 mls/hr TITRATE IV Last administered on 06/10/16 18:11; Admin Dose 15 MLS/HR; Start 06/09/16 at 17 :40 Digoxin (Digoxin) 250 mcg DAILY@13 IV Last administered on 06/10/16 13:18; Admin Dose 250 MCG; Start 06/10/16 at 13:00 Hydralazine HCl (Apresoline) 10 mg Q6H PRN IV SBP > 220; Start 06/09/16 at 20: 00 Assessment/Plan Chief Complaint/Hosp Course PHYSICAL EXAMINATION: GENERAL: Not in acute distress, lying in bed. HEENT: Normocephalic, atraumatic head. NECK: No carotid bruits. No thyromegaly. LUNGS: Clear to auscultation bilaterally. CARDIAC: Normal ABDOMEN: Soft. Present bowel sounds. EXTREMITIES: No cyanosis, clubbing, or edema. NEUROLOGIC: He is awake, alert, looks bilaterally. Follows commands only with multiple visual prompting, not verbal. No response to visual threat from the right. Pupils reactive from 3 to 2 mm bilaterally. Extraocular movements intact. Symmetrical face. Corneal reflexes present bilaterally. Gag is present. Motor strength examination shows flaccid tone and no movements in the right upper extremity to pain, but lifted it to scratch the forehead, 3/5. The patient withdraws right lower extremity to noxious stimuli at least 3 or 3+/5 and moves left side normally spontaneously and to noxious stimuli as well. Deep tendon reflexes 2+ upper extremities and knees, absent ankle jerks, upgoing toe on the right and equivocal on the left. Coordination seems to be preserved when he is reaching for objects with his left hand. IMPRESSION: Acute ischemic stroke in the left middle cerebral artery territory , likely cardioembolic, given severe cardiomyopathy and global hypokinesis and atrial flutter. Continue current treatment. Usually, it is okay to allow elevated blood pressure in the first few days after acute stroke, then obtain control. The blood pressure could be as high as 220/120, but in context of patient's congestive heart failure, I would follow recommendation of skidder runner regarding blood pressure parameters. Continue aspirin. I would not use anticoagulation currently because of risk of hemorrhagic transformation. Will consider if the patient is stable in 2 weeks from now. I would not use statin for currently because of transaminitis, but if liver function improves, will consider. Keep patient euglycemic. Continue current treatment otherwise. Speech therapy, swallow evaluation, and physical therapy. Problems: DAVID ELIZALDE MD Jun 10, 2016 19:50
--- NOTE | 2016-06-10 20:13 | CONS ---
Date/Time of Note Date/Time of Note DATE: 06/10/16 TIME: 20:10 Assessment/Plan Assessment/Plan Chief Complaint/Hosp Course Assessment: Acute left MCA stroke - possibly cardioembolic Typical atrial flutter, onset >48 hours at presentation - controlled ventricular rates Acute on chronic systolic heart failure Ischemic cardiomyopathy - LVEF<25%, no reversible defects on Lexiscan SPECT April 2015 Chronic left bundle branch block Coronary artery disease, history of coronary stenting - details unknown Hypertension Dyslipidemia Transaminitis Recommendations: -continue Lasix 40mg IV daily -continue digoxin 0.25mg IV daily -continue diltiazem drip for heart rate control -off anticoagulation due to risk for hemorrhagic conversion, resume when stable after acute stroke (>2 weeks per neurology) -holding atorvastatin in setting of transaminitis -will restart on oral medications after passing swallow evaluation -will eventually also need evaluation for atrial flutter ablation and primary prevention ICD as outpatient Problems: Consultation Date/Type/Reason Admit Date/Time Jun 07, 2016 at 21:23 Type of Consultation: Cardiology 24 HR Interval Summary Free Text/Dictation More alert today, but remains nonverbal. Follows simple commands. Right upper extremity remains flaccid. Did not pass swallow evaluation. Telemetry shows atrial flutter with controlled ventricular rates. Detailed Summary Additional Comments Unable to obtain review of systems, patient is nonverbal. Exam/Review of Systems Vital Signs Vitals Vital Signs Date Time Temp Pulse Resp B/P Pulse Ox O2 Delivery O2 Flow Rate FiO2 06/10/16 19:08 116 06/10/16 19:08 98.3 18 132/77 97 06/10/16 18:06 Nasal Cannula 4.0 06/10/16 16:38 32 Intake and Output 06/09/16 06/09/16 06/10/16 15:00 23:00 07:00 Intake Total 20 ml Output Total 800 ml 250 ml Balance -780 ml -250 ml Exam Constitutional: lethargic Psych: not nl mood/affect Head: atraumatic, normocephalic Eyes: nl conjunctiva, nl lids ENMT: nl external ears & nose, nl nasal mucosa & septum Neck: jvd, non-tender, supple Respiratory: diminished breath sounds, No wheezing Cardiovascular: other (tachycardic) Gastrointestinal: non-tender, soft Musculoskeletal: nl extremities to inspection Extremities: No clubbing, No edema Neurological: not nl mental status, nonverbal Results Result Diagram: 06/10/16 0635 06/10/16 0635 Results 24 hrs Laboratory Tests Test 06/10/16 06:35 Alanine Aminotransferase (ALT/SGPT) 501 H Albumin 3.2 L Albumin/Globulin Ratio 1.18 Alkaline Phosphatase 183 H Anion Gap 15 Aspartate Amino Transf (AST/SGOT) 276 H Basophils # 0.0 Basophils % 0.2 Blood Urea Nitrogen 35 H Calcium Level 8.7 Carbon Dioxide Level 29 Chloride Level 105 Creatinine 0.98 Direct Bilirubin 0.00 Eosinophils # 0.1 Eosinophils % 1.3 Globulin 2.70 Glucose Level 100 Hematocrit 42.5 Hemoglobin 14.4 Indirect Bilirubin 1.1 Lymphocytes # 0.8 Lymphocytes % 8.6 L Mean Corpuscular Hemoglobin 31.2 Mean Corpuscular Hemoglobin Concent 33.9 Mean Corpuscular Volume 92.2 Mean Platelet Volume 13.7 H Monocytes # 0.5 Monocytes % 5.4 Neutrophils # 7.3 Neutrophils % 84.2 H Nucleated Red Blood Cells # 0.0 Nucleated Red Blood Cells % 0.0 Platelet Count 118 L Potassium Level 3.8 Red Blood Count 4.61 L Red Cell Distribution Width 16.0 H Sodium Level 145 H Total Bilirubin 1.1 Total Protein 5.9 L White Blood Count 8.7 # Medications Medications Current Medications Aspirin (Aspirin) 81 mg DAILY PO Last administered on 06/10/16 08:55; Admin Dose 81 MG; Start 06/08/16 at 09:00 Furosemide (Lasix) 40 mg DAILY IV Last administered on 06/10/16 08:58; Admin Dose 40 MG; Start 06/09/16 at 09:00 Docusate Sodium (Colace) 100 mg BID PO ; Start 06/08/16 at 21:00 Senna (Senokot) 1 tab BID PO ; Start 06/08/16 at 21:00 Lorazepam 1 mg 1 mg Q6H PRN IV AGITATION/ANXIETY Last administered on 20:16; Admin Dose 1 MG; Start 06/09/16 at 11:10 Diltiazem HCl (Cardizem-D5W 125 Mg/125 ml Drip) 125 ml @ 5 mls/hr TITRATE IV Last administered on 06/10/16 18:11; Admin Dose 15 MLS/HR; Start 06/09/16 at 17 :40 Digoxin (Digoxin) 250 mcg DAILY@13 IV Last administered on 06/10/16t 13:18; Admin Dose 250 MCG; Start 06/10/16 at 13:00 Hydralazine HCl (Apresoline) 10 mg Q6H PRN IV SBP > 220; Start 06/09/16 at 20: 00 LAMAR RUTH MD Jun 10, 2016 20:13
[2016-06-11] VITALS (15 sets, daily range): BP systolic 113–139; BP diastolic 64–82; PULSE 69–95; RESP 14–18
[2016-06-11] MEDS: DILTIAZEM-D5W 125MG/125ML DRIP 125 ML IV SCH ×2 (00:36→07:23)
[2016-06-11] MEDS: LEVALBUTEROL (NEB) 1.25 MG/0.5 ML AMP HHN SCH ×6 (01:56→20:07)
[2016-06-11 07:15] LABS: ADD SCAN DIFF NO
[2016-06-11 07:28] LABS: POTASSIUM 3.8 mmol/L (3.5-5.1)
[2016-06-11 07:31] LABS: CREATININE 0.97 mg/dl (0.61-1.24)
[2016-06-11 07:32] LABS: CALCIUM 8.9 mg/dl (8.4-10.2)
[2016-06-11 08:33] LABS: BASOPHILS % 0.2 % (0.0-2.0); EOSINOPHILS % 0.5 % (0.0-7.0); HEMATOCRIT 45.4 % (42.0-52.0); HEMOGLOBIN 14.7 g/dl (14.0-18.0); LYMPHOCYTES % 11.3 % (15.0-51.0); MEAN CORPUSCULAR HEMOGLOBIN 30.2 pg (29.0-33.0); MEAN CORPUSCULAR HGB CONC 32.4 g/dl (32.0-37.0); MEAN CORPUSCULAR VOLUME 93.2 fl (82.0-101.0); MEAN PLATELET VOLUME 13.9 fl (7.4-10.4); MONOCYTE # 0.7 10^3/ul (0.3-0.9); MONOCYTES % 7.4 % (0.0-11.0); NEUTROPHIL # 7.1 10^3/ul (1.6-7.5); NEUTROPHILS % 80.3 % (39.0-77.0); NUCLEATED RED BLOOD CELLS% 0.2 /100WBC (0.0-0.0); PLATELET COUNT 117 10^3/UL (140-415); RED BLOOD COUNT 4.87 10^6/ul (4.70-6.10); RED CELL DISTRIBUTION WIDTH 16.7 % (11.5-14.5); WHITE BLOOD COUNT 8.8 10^3/ul (4.8-10.8)
[2016-06-11] MEDS: FUROSEMIDE 20 MG INJ IV SCH (08:52)
[2016-06-11] MEDS: ASPIRIN 81 MG TAB PO SCH (08:58)
[2016-06-11] MEDS: DOCUSATE SODIUM 100 MG CAP PO SCH ×2 (08:58→20:22)
[2016-06-11] MEDS: SENNA TAB PO SCH ×2 (08:59→20:22)
[2016-06-11] MEDS: ALBUTEROL 0.083% (NEB) 2.5 MG/3 ML AMP HHN PRN (12:45)
[2016-06-11] MEDS: DIGOXIN 500 MCG INJ IV SCH (13:28)
--- NOTE | 2016-06-11 16:45 | PN ---
Date/Time of Note Date/Time of Note DATE: 06/11/16 TIME: 16:41 Assessment/Plan VTE Prophylaxis VTE Prophylaxis Intervention: LMWH Lines/Catheters [facility] Saline Lock Urinary Cath still in place: No Assessment/Plan Chief Complaint/Hosp Course 1) Atrial flutter-stable Cardiology consult appreciated Continue Cardizem drip 2) Acute encephalopathy secondary to left MCA territory infarct Code stroke was called at 4 AM, telemetry neurology evaluate the patient the last time patient was seen normal reportedly was at 8 PM hence no TPA was given MRI does show a left MCA territory infarct Neurology consultation appreciated, PT and ST eval, patient is ambulating with physical therapy, rehab eval 3) Acute on chronic systolic CHF exacerbation EF on echo shows an ejection fraction of 15%, patient has a history of CHF Continue diuresis, cards consult appreciated 4) 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 5) Atypical chest pain No evidence of ACS at this time, troponins are negative Prophylaxis: Lovenox Problems: Subjective 24 Hr Interval Summary Subjective hx not possible: pt non-verbal Exam/Review of Systems Vital Signs Vitals Vital Signs Date Time Temp Pulse Resp B/P Pulse Ox O2 Delivery O2 Flow Rate FiO2 06/11/16 16:27 75 19 97 Nasal Cannula 4.0 06/11/16 16:10 98.0 129/78 06/10/16 16:38 32 Intake and Output 06/10/16 06/10/16 06/11/16 15:00 23:00 07:00 Intake Total 60 ml 40 ml Output Total 300 ml 400 ml Balance 60 ml -260 ml -400 ml Exam Constitutional: non-verbal Respiratory: clear to auscultation Cardiovascular: regular rate and rhythm Gastrointestinal: soft, No distended Musculoskeletal: nl extremities to inspection Results Result Diagram: 06/11/16 0529 06/11/16 0524 Results 24 hrs Laboratory Tests Test 06/11/16 05:24 06/11/16 05:29 06/11/16 09:19 Anion Gap 16 Blood Urea Nitrogen 31 H Calcium Level 8.9 Carbon Dioxide Level 29 Chloride Level 104 Creatinine 0.97 Glucose Level 96 Potassium Level 3.8 Sodium Level 145 H Basophils # 0.0 Basophils % 0.2 Eosinophils # 0.0 Eosinophils % 0.5 Hematocrit 45.4 Hemoglobin 14.7 Lymphocytes # 1.0 Lymphocytes % 11.3 L Mean Corpuscular Hemoglobin 30.2 Mean Corpuscular Hemoglobin Concent 32.4 Mean Corpuscular Volume 93.2 Mean Platelet Volume 13.9 H Monocytes # 0.7 Monocytes % 7.4 Neutrophils # 7.1 Neutrophils % 80.3 H Nucleated Red Blood Cells # 0.0 Nucleated Red Blood Cells % 0.2 H Platelet Count 117 L Red Blood Count 4.87 Red Cell Distribution Width 16.7 H White Blood Count 8.8 Lab Scanned Report REFERENCE LAB Medications Medications Current Medications Aspirin (Aspirin) 81 mg DAILY PO Last administered on 06/10/16 08:55; Admin Dose 81 MG; Start 06/08/16 at 09:00 Furosemide (Lasix) 40 mg DAILY IV Last administered on 06/11/16 08:52; Admin Dose 40 MG; Start 06/09/16 at 09:00 Docusate Sodium (Colace) 100 mg BID PO ; Start 06/08/16 at 21:00 Senna (Senokot) 1 tab BID PO ; Start 06/08/16 at 21:00 Lorazepam 1 mg 1 mg Q6H PRN IV AGITATION/ANXIETY Last administered on 20:16; Admin Dose 1 MG; Start 06/09/16 at 11:10 Diltiazem HCl (Cardizem-D5W 125 Mg/125 ml Drip) 125 ml @ 5 mls/hr TITRATE IV Last administered on 06/11/16 07:23; Admin Dose 10 MLS/HR; Start 06/09/16 at 17 :40 Digoxin (Digoxin) 250 mcg DAILY@13 IV Last administered on 06/11/16 13:28; Admin Dose 250 MCG; Start 06/10/16 at 13:00 Hydralazine HCl (Apresoline) 10 mg Q6H PRN IV SBP > 220; Start 06/09/16 at 20: 00 SADIA SON Jun 11, 2016 16:45
[2016-06-11] MEDS: ENOXAPARIN 40 MG/0.4 ML SYG SC SCH (18:03)
--- NOTE | 2016-06-11 18:45 | CONS ---
Date/Time of Note Date/Time of Note DATE: 06/11/16 TIME: 18:42 Consult Date/Type/Reason Admit Date/Time Jun 07, 2016 at 21:23 Type of Consultation: neurology Subjective no acute changes, was able to ambulate with PT in AM, may be slightly more lethargic per family Objective Vital Signs Date Time Temp Pulse Resp B/P Pulse Ox O2 Delivery O2 Flow Rate FiO2 06/11/16 16:29 93 06/11/16 16:27 19 97 Nasal Cannula 4.0 06/11/16 16:10 98.0 129/78 06/10/16 16:38 32 Intake and Output 06/10/16 06/10/16 06/11/16 15:00 23:00 07:00 Intake Total 60 ml 40 ml Output Total 300 ml 400 ml Balance 60 ml -260 ml -400 ml Results/Medications Result Diagram: 06/11/16 0529 06/11/16 0524 Results 24 hrs Laboratory Tests Test 06/11/16 05:24 06/11/16 05:29 06/11/16 09:19 Anion Gap 16 Blood Urea Nitrogen 31 H Calcium Level 8.9 Carbon Dioxide Level 29 Chloride Level 104 Creatinine 0.97 Glucose Level 96 Potassium Level 3.8 Sodium Level 145 H Basophils # 0.0 Basophils % 0.2 Eosinophils # 0.0 Eosinophils % 0.5 Hematocrit 45.4 Hemoglobin 14.7 Lymphocytes # 1.0 Lymphocytes % 11.3 L Mean Corpuscular Hemoglobin 30.2 Mean Corpuscular Hemoglobin Concent 32.4 Mean Corpuscular Volume 93.2 Mean Platelet Volume 13.9 H Monocytes # 0.7 Monocytes % 7.4 Neutrophils # 7.1 Neutrophils % 80.3 H Nucleated Red Blood Cells # 0.0 Nucleated Red Blood Cells % 0.2 H Platelet Count 117 L Red Blood Count 4.87 Red Cell Distribution Width 16.7 H White Blood Count 8.8 Lab Scanned Report REFERENCE LAB Medications Current Medications Aspirin (Aspirin) 81 mg DAILY PO Last administered on 06/10/16 08:55; Admin Dose 81 MG; Start 06/08/16 at 09:00 Furosemide (Lasix) 40 mg DAILY IV Last administered on 06/11/16 08:52; Admin Dose 40 MG; Start 06/09/16 at 09:00 Docusate Sodium (Colace) 100 mg BID PO ; Start 06/08/16 at 21:00 Senna (Senokot) 1 tab BID PO ; Start 06/08/16 at 21:00 Lorazepam 1 mg 1 mg Q6H PRN IV AGITATION/ANXIETY Last administered on 20:16; Admin Dose 1 MG; Start 06/09/16 at 11:10 Diltiazem HCl (Cardizem-D5W 125 Mg/125 ml Drip) 125 ml @ 5 mls/hr TITRATE IV Last administered on 06/11/16 07:23; Admin Dose 10 MLS/HR; Start 06/09/16 at 17 :40 Digoxin (Digoxin) 250 mcg DAILY@13 IV Last administered on 06/11/16 13:28; Admin Dose 250 MCG; Start 06/10/16 at 13:00 Hydralazine HCl (Apresoline) 10 mg Q6H PRN IV SBP > 220; Start 06/09/16 at 20: 00 Enoxaparin Sodium (Lovenox) 40 mg QPM SC Last administered on 06/11/16 18:03; Admin Dose 40 MG; Start 06/11/16 at 17:45 Assessment/Plan Chief Complaint/Hosp Course PHYSICAL EXAMINATION: GENERAL: Not in acute distress, lying in bed. HEENT: Normocephalic, atraumatic head. NECK: No carotid bruits. No thyromegaly. LUNGS: Clear to auscultation bilaterally. CARDIAC: Normal ABDOMEN: Soft. Present bowel sounds. EXTREMITIES: No cyanosis, clubbing, or edema. NEUROLOGIC: He is lathargic, arousable by touch, when aroused looks bilaterally. Follows commands only with multiple visual prompting, not verbal. No response to visual threat from the right. Pupils reactive from 3 to 2 mm bilaterally. Extraocular movements intact. Symmetrical face. Corneal reflexes present bilaterally. Gag is present. Motor strength examination shows flaccid tone and no movements in the right upper extremity to pain, but lifted it to scratch the forehead yesterday, per family was lifting today as well. The patient withdraws right lower extremity to noxious stimuli at least 3 or 3+/5 and moves left side normally spontaneously and to noxious stimuli as well. Deep tendon reflexes 2+ upper extremities and knees, absent ankle jerks, upgoing toe on the right and equivocal on the left. Coordination seems to be preserved when he is reaching for objects with his left hand. IMPRESSION: Acute ischemic stroke in the left middle cerebral artery territory , likely cardioembolic, given severe cardiomyopathy and global hypokinesis and atrial flutter. Continue current treatment. Keep normotensive, euglycemic. Continue aspirin. I would not use anticoagulation currently because of risk of hemorrhagic transformation. Will consider if the patient is stable in 2 weeks from now. I would not use statin for currently because of transaminitis, but if liver function improves, will consider. Keep patient euglycemic. Continue current treatment otherwise. Speech therapy, swallow evaluation, and physical therapy. consider rehab. Dr. Arias will follow over the weekend Problems: DAVID ELIZALDE MD Jun 11, 2016 18:45
[2016-06-11] MEDS: D5W-0.45 NACL + KCL 20 MEQ 1,000 ML IV SCH (20:18)
[2016-06-12] VITALS (11 sets, daily range): BP systolic 131–150; BP diastolic 62–81; PULSE 74–127; RESP 15–18
[2016-06-12] MEDS: LEVALBUTEROL (NEB) 1.25 MG/0.5 ML AMP HHN SCH ×6 (00:51→20:00)
[2016-06-12] MEDS: DILTIAZEM-D5W 125MG/125ML DRIP 125 ML IV SCH (01:31)
[2016-06-12 07:02] LABS: ADD SCAN DIFF NO
[2016-06-12 07:14] LABS: BASOPHILS % 0.3 % (0.0-2.0); EOSINOPHILS # 0.1 10^3/ul (0.0-0.5); EOSINOPHILS % 0.8 % (0.0-7.0); HEMATOCRIT 48.1 % (42.0-52.0); HEMOGLOBIN 15.7 g/dl (14.0-18.0); LYMPHOCYTES # 0.9 10^3/ul (0.8-2.9); LYMPHOCYTES % 11.8 % (15.0-51.0); MEAN CORPUSCULAR HEMOGLOBIN 30.6 pg (29.0-33.0); MEAN CORPUSCULAR HGB CONC 32.6 g/dl (32.0-37.0); MEAN CORPUSCULAR VOLUME 93.8 fl (82.0-101.0); MEAN PLATELET VOLUME 13.6 fl (7.4-10.4); MONOCYTE # 0.6 10^3/ul (0.3-0.9); MONOCYTES % 7.4 % (0.0-11.0); NEUTROPHIL # 6.3 10^3/ul (1.6-7.5); NEUTROPHILS % 79.3 % (39.0-77.0); PLATELET COUNT 131 10^3/UL (140-415); RED BLOOD COUNT 5.13 10^6/ul (4.70-6.10); RED CELL DISTRIBUTION WIDTH 16.2 % (11.5-14.5); WHITE BLOOD COUNT 7.9 10^3/ul (4.8-10.8)
[2016-06-12 07:24] LABS: ALBUMIN 3.6 g/dl (3.3-4.9)
[2016-06-12 07:25] LABS: POTASSIUM 4.2 mmol/L (3.5-5.1)
[2016-06-12 07:27] LABS: CREATININE 0.94 mg/dl (0.61-1.24)
[2016-06-12 07:28] LABS: ALBUMIN/GLOBULIN RATIO 1.09; CALCIUM 9.2 mg/dl (8.4-10.2); TOTAL PROTEIN 6.9 g/dl (6.1-8.1)
[2016-06-12] MEDS: DOCUSATE SODIUM 100 MG CAP PO SCH ×2 (09:00→21:11)
[2016-06-12] MEDS: SENNA TAB PO SCH ×2 (09:00→21:11)
[2016-06-12] MEDS: ASPIRIN 81 MG TAB PO SCH (09:00)
[2016-06-12] MEDS: ALBUTEROL 0.083% (NEB) 2.5 MG/3 ML AMP HHN PRN ×3 (09:40→16:16)
[2016-06-12] MEDS: FUROSEMIDE 20 MG INJ IV SCH (09:45)
[2016-06-12] MEDS: D5W-0.45 NACL + KCL 20 MEQ 1,000 ML IV SCH ×2 (12:29→15:30)
[2016-06-12] MEDS: DIGOXIN 500 MCG INJ IV SCH (12:30)
--- NOTE | 2016-06-12 15:39 | CONS ---
Date/Time of Note Date/Time of Note DATE: 06/12/16 TIME: 15:32 Assessment/Plan Assessment/Plan Additional Assessment/Plan 80 years old male with acute ischemic stroke in the left middle cerebral artery territory, likely cardioembolic, given severe cardiomyopathy and global hypokinesis and atrial flutter. Plan: 1 Continue current treatment. 2 Keep normotensive, euglycemic. 3 Continue aspirin. 4 No statin for currently because of transaminitis, but if liver function improves, will consider. 5 Keep patient euglycemic. 6 Continue Speech therapy, swallow evaluation, and physical therapy. 7 consider rehab. Consultation Date/Type/Reason Admit Date/Time Jun 07, 2016 at 21:23 Initial Consult Date Type of Consultation: neurology Reason for Consultation Stroke 24 HR Interval Summary Free Text/Dictation Improving iin right sided weakness. Walked with PT. Constitutional: improved Exam/Review of Systems Vital Signs Vitals Vital Signs Date Time Temp Pulse Resp B/P Pulse Ox O2 Delivery O2 Flow Rate FiO2 06/12/16 15:05 3.0 06/12/16 13:33 69 20 98 Nasal Cannula 06/12/16 11:16 98.9 134/81 06/10/16 16:38 32 Intake and Output 06/11/16 06/11/16 06/12/16 15:00 23:00 07:00 Intake Total 10 ml 175 ml 385 ml Output Total 1000 ml 500 ml Balance 10 ml -825 ml -115 ml Exam Constitutional: alert Psych: nl mood/affect, no complaints Head: atraumatic, normocephalic Eyes: EOMI, nl conjunctiva, nl lids, nl sclera ENMT: mucosa pink and moist, nl external ears & nose, nl lips & teeth, nl nasal mucosa & septum Neck: non-tender, supple Respiratory: clear to auscultation, normal air movement Cardiovascular: nl pulses, regular rate and rhythm Gastrointestinal: nl liver, spleen, non-tender, soft Extremities: normal pulses 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 Follows commands only with multiple visual prompting, not verbal. No response to visual threat from the right. Pupils reactive from 3 to 2 mm bilaterally. Extraocular movements intact. Symmetrical face. Corneal reflexes present bilaterally. Gag is present. Motor strength examination shows flaccid tone and no movements in the right upper extremity to pain, but lifted it to scratch the forehead yesterday, per family was lifting today as well. The patient withdraws right lower extremity to noxious stimuli at least 3 or 3+/5 and moves left side normally spontaneously and to noxious stimuli as well. Deep tendon reflexes 2+ upper extremities and knees, absent ankle jerks, upgoing toe on the right and equivocal on the left. Coordination seems to be preserved when he is reaching for objects with his left hand.) Results Result Diagram: 06/12/16 0630 06/12/16 0630 Results 24 hrs Laboratory Tests Test 06/12/16 06:30 Alanine Aminotransferase (ALT/SGPT) 299 H Albumin 3.6 Albumin/Globulin Ratio 1.09 Alkaline Phosphatase 171 H Anion Gap 16 Aspartate Amino Transf (AST/SGOT) 95 #H Basophils # 0.0 Basophils % 0.3 Blood Urea Nitrogen 34 H Calcium Level 9.2 Carbon Dioxide Level 29 Chloride Level 106 Creatinine 0.94 Direct Bilirubin 0.00 Eosinophils # 0.1 Eosinophils % 0.8 Globulin 3.30 H Glucose Level 103 Hematocrit 48.1 Hemoglobin 15.7 Indirect Bilirubin 1.0 Lymphocytes # 0.9 Lymphocytes % 11.8 L Mean Corpuscular Hemoglobin 30.6 Mean Corpuscular Hemoglobin Concent 32.6 Mean Corpuscular Volume 93.8 Mean Platelet Volume 13.6 H Monocytes # 0.6 Monocytes % 7.4 Neutrophils # 6.3 Neutrophils % 79.3 H Nucleated Red Blood Cells # 0.0 Nucleated Red Blood Cells % 0.0 Platelet Count 131 L Potassium Level 4.2 Red Blood Count 5.13 Red Cell Distribution Width 16.2 H Sodium Level 147 H Total Bilirubin 1.0 Total Protein 6.9 # White Blood Count 7.9 Medications Medications Current Medications Aspirin (Aspirin) 81 mg DAILY PO Last administered on 06/10/16 08:55; Admin Dose 81 MG; Start 06/08/16 at 09:00 Furosemide (Lasix) 40 mg DAILY IV Last administered on 06/12/16 09:45; Admin Dose 40 MG; Start 06/09/16 at 09:00 Docusate Sodium (Colace) 100 mg BID PO ; Start 06/08/16 at 21:00 Senna (Senokot) 1 tab BID PO ; Start 06/08/16 at 21:00 Lorazepam 1 mg 1 mg Q6H PRN IV AGITATION/ANXIETY Last administered on 20:16; Admin Dose 1 MG; Start 06/09/16 at 11:10 Diltiazem HCl (Cardizem-D5W 125 Mg/125 ml Drip) 125 ml @ 5 mls/hr TITRATE IV Last administered on 06/12/16 01:31; Admin Dose 5 MLS/HR; Start 06/09/16 at 17: 40 Digoxin (Digoxin) 250 mcg DAILY@13 IV Last administered on 06/12/16 12:30; Admin Dose 250 MCG; Start 06/10/16 at 13:00 Hydralazine HCl (Apresoline) 10 mg Q6H PRN IV SBP > 220; Start 06/09/16 at 20: 00 Enoxaparin Sodium 40 mg 40 mg QPM SC Last administered on 06/11/16 18:03; Admin Dose 40 MG; Start 06/11/16 at 17:45 Potassium Chloride/Dextrose/ Sod Cl (D5-1/2ns + KCl 20 Meq) 1,000 ml @ 50 mls/ hr Q20H IV Last administered on 06/12/16 12:29; Admin Dose 50 MLS/HR; Start at 19:30 HAILEY SAMS MD Jun 12, 2016 15:38
--- NOTE | 2016-06-12 16:04 | PN ---
Date/Time of Note Date/Time of Note DATE: 06/12/16 TIME: 16:03 Assessment/Plan VTE Prophylaxis VTE Prophylaxis Intervention: LMWH Lines/Catheters IV [facility] Saline Lock Urinary Cath still in place: No Assessment/Plan Chief Complaint/Hosp Course 1) Atrial flutter-stable Cardiology consult appreciated Continue Cardizem drip 2) Acute encephalopathy secondary to left MCA territory infarct Code stroke was called at 4 AM, telemetry neurology evaluate the patient the last time patient was seen normal reportedly was at 8 PM hence no TPA was given MRI does show a left MCA territory infarct Neurology consultation appreciated, PT and ST eval, patient is ambulating with physical therapy, rehab eval with [facility] 3) Acute on chronic systolic CHF exacerbation EF on echo shows an ejection fraction of 15%, patient has a history of CHF Continue diuresis, cards consult appreciated 4) 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 5) Atypical chest pain No evidence of ACS at this time, troponins are negative Prophylaxis: Lovenox Problems: Subjective 24 Hr Interval Summary Constitutional: disoriented Exam/Review of Systems Vital Signs Vitals Vital Signs Date Time Temp Pulse Resp B/P Pulse Ox O2 Delivery O2 Flow Rate FiO2 06/12/16 15:41 98.3 50 17 150/72 97 06/12/16 15:05 3.0 06/12/16 13:33 Nasal Cannula 06/10/16 16:38 32 Intake and Output 06/11/16 06/11/16 06/12/16 15:00 23:00 07:00 Intake Total 10 ml 175 ml 385 ml Output Total 1000 ml 500 ml Balance 10 ml -825 ml -115 ml Exam Psych: confusion Respiratory: clear to auscultation Cardiovascular: regular rate and rhythm Gastrointestinal: soft, No distended Musculoskeletal: nl extremities to inspection Results Result Diagram: 06/12/16 0630 06/12/16 0630 Results 24 hrs Laboratory Tests Test 06/12/16 06:30 Alanine Aminotransferase (ALT/SGPT) 299 H Albumin 3.6 Albumin/Globulin Ratio 1.09 Alkaline Phosphatase 171 H Anion Gap 16 Aspartate Amino Transf (AST/SGOT) 95 #H Basophils # 0.0 Basophils % 0.3 Blood Urea Nitrogen 34 H Calcium Level 9.2 Carbon Dioxide Level 29 Chloride Level 106 Creatinine 0.94 Direct Bilirubin 0.00 Eosinophils # 0.1 Eosinophils % 0.8 Globulin 3.30 H Glucose Level 103 Hematocrit 48.1 Hemoglobin 15.7 Indirect Bilirubin 1.0 Lymphocytes # 0.9 Lymphocytes % 11.8 L Mean Corpuscular Hemoglobin 30.6 Mean Corpuscular Hemoglobin Concent 32.6 Mean Corpuscular Volume 93.8 Mean Platelet Volume 13.6 H Monocytes # 0.6 Monocytes % 7.4 Neutrophils # 6.3 Neutrophils % 79.3 H Nucleated Red Blood Cells # 0.0 Nucleated Red Blood Cells % 0.0 Platelet Count 131 L Potassium Level 4.2 Red Blood Count 5.13 Red Cell Distribution Width 16.2 H Sodium Level 147 H Total Bilirubin 1.0 Total Protein 6.9 # White Blood Count 7.9 Medications Medications Current Medications Aspirin (Aspirin) 81 mg DAILY PO Last administered on 06/10/16 08:55; Admin Dose 81 MG; Start 06/08/16 at 09:00 Furosemide (Lasix) 40 mg DAILY IV Last administered on 06/12/16 09:45; Admin Dose 40 MG; Start 06/09/16 at 09:00 Docusate Sodium (Colace) 100 mg BID PO ; Start 06/08/16 at 21:00 Senna (Senokot) 1 tab BID PO ; Start 06/08/16 at 21:00 Lorazepam 1 mg 1 mg Q6H PRN IV AGITATION/ANXIETY Last administered on 20:16; Admin Dose 1 MG; Start 06/09/16 at 11:10 Diltiazem HCl (Cardizem-D5W 125 Mg/125 ml Drip) 125 ml @ 5 mls/hr TITRATE IV Last administered on 06/12/16 01:31; Admin Dose 5 MLS/HR; Start 06/09/16 at 17: 40 Digoxin (Digoxin) 250 mcg DAILY@13 IV Last administered on 06/12/16 12:30; Admin Dose 250 MCG; Start 06/10/16 at 13:00 Hydralazine HCl (Apresoline) 10 mg Q6H PRN IV SBP > 220; Start 06/09/16 at 20: 00 Enoxaparin Sodium 40 mg 40 mg QPM SC Last administered on 06/11/16 18:03; Admin Dose 40 MG; Start 06/11/16 at 17:45 Potassium Chloride/Dextrose/ Sod Cl (D5-1/2ns + KCl 20 Meq) 1,000 ml @ 50 mls/ hr Q20H IV Last administered on 06/12/16t 12:29; Admin Dose 50 MLS/HR; Start at 19:30 SADIA SON Jun 12, 2016 16:04
[2016-06-12] MEDS ORDERED: DILTIAZEM 60 MG TAB PO PRN (18:00)
--- NOTE | 2016-06-12 18:00 | CONS ---
Date/Time of Note Date/Time of Note DATE: 06/12/16 TIME: 17:52 Assessment/Plan Assessment/Plan Chief Complaint/Hosp Course Assessment: Acute left MCA stroke - possibly cardioembolic Typical atrial flutter, onset >48 hours at presentation - controlled ventricular rates Acute on chronic systolic heart failure - improving with diuresis Ischemic cardiomyopathy - LVEF<25%, no reversible defects on Lexiscan SPECT April 2015 Chronic left bundle branch block Coronary artery disease, history of coronary stenting - details unknown Hypertension Dyslipidemia Transaminitis Recommendations: -change Lasix to 40mg PO daily -change digoxin to 0.25mg PO daily -discontinue diltiazem drip -start metoprolol 50mg PO BID, diltiazem PO PRN -continue aspirin 81mg daily -off anticoagulation due to risk for hemorrhagic conversion, resume when stable after acute stroke (>2 weeks per neurology) -holding atorvastatin in setting of transaminitis -will eventually also need evaluation for atrial flutter ablation and primary prevention ICD as outpatient Problems: Consultation Date/Type/Reason Admit Date/Time Jun 07, 2016 at 21:23 Type of Consultation: Cardiology 24 HR Interval Summary Free Text/Dictation Walking with physical therapy today. Re-evaluated by speech therapy, placed on puree nectar thick liquid diet. Atrial flutter with controlled ventricular rates on telemetry. Detailed Summary Additional Comments Unable to obtain review of systems, patient still unable to speak. Exam/Review of Systems Vital Signs Vitals Vital Signs Date Time Temp Pulse Resp B/P Pulse Ox O2 Delivery O2 Flow Rate FiO2 06/12/16 16:30 86 06/12/16 16:17 20 97 Nasal Cannula 3.0 06/12/16 15:41 98.3 150/72 06/10/16 16:38 32 Intake and Output 06/11/16 06/11/16 06/12/16 15:00 23:00 07:00 Intake Total 10 ml 175 ml 385 ml Output Total 1000 ml 500 ml Balance 10 ml -825 ml -115 ml Exam Constitutional: alert, no distress Psych: not nl mood/affect Head: atraumatic, normocephalic Eyes: nl conjunctiva, nl lids ENMT: nl external ears & nose, nl nasal mucosa & septum Neck: jvd, non-tender, supple Respiratory: diminished breath sounds, No wheezing Cardiovascular: other (tachycardic) Gastrointestinal: non-tender, soft Musculoskeletal: nl extremities to inspection Extremities: No clubbing, No edema Neurological: not nl mental status, nonverbal Results Result Diagram: 06/12/16 0630 06/12/16 0630 Results 24 hrs Laboratory Tests Test 06/12/16 06:30 Alanine Aminotransferase (ALT/SGPT) 299 H Albumin 3.6 Albumin/Globulin Ratio 1.09 Alkaline Phosphatase 171 H Anion Gap 16 Aspartate Amino Transf (AST/SGOT) 95 #H Basophils # 0.0 Basophils % 0.3 Blood Urea Nitrogen 34 H Calcium Level 9.2 Carbon Dioxide Level 29 Chloride Level 106 Creatinine 0.94 Direct Bilirubin 0.00 Eosinophils # 0.1 Eosinophils % 0.8 Globulin 3.30 H Glucose Level 103 Hematocrit 48.1 Hemoglobin 15.7 Indirect Bilirubin 1.0 Lymphocytes # 0.9 Lymphocytes % 11.8 L Mean Corpuscular Hemoglobin 30.6 Mean Corpuscular Hemoglobin Concent 32.6 Mean Corpuscular Volume 93.8 Mean Platelet Volume 13.6 H Monocytes # 0.6 Monocytes % 7.4 Neutrophils # 6.3 Neutrophils % 79.3 H Nucleated Red Blood Cells # 0.0 Nucleated Red Blood Cells % 0.0 Platelet Count 131 L Potassium Level 4.2 Red Blood Count 5.13 Red Cell Distribution Width 16.2 H Sodium Level 147 H Total Bilirubin 1.0 Total Protein 6.9 # White Blood Count 7.9 Medications Medications Current Medications Aspirin (Aspirin) 81 mg DAILY PO Last administered on 06/10/16 08:55; Admin Dose 81 MG; Start 06/08/16 at 09:00 Furosemide (Lasix) 40 mg DAILY IV Last administered on 06/12/16 09:45; Admin Dose 40 MG; Start 06/09/16 at 09:00 Docusate Sodium (Colace) 100 mg BID PO ; Start 06/08/16 at 21:00 Senna (Senokot) 1 tab BID PO ; Start 06/08/16 at 21:00 Lorazepam 1 mg 1 mg Q6H PRN IV AGITATION/ANXIETY Last administered on 20:16; Admin Dose 1 MG; Start 06/09/16 at 11:10 Diltiazem HCl (Cardizem-D5W 125 Mg/125 ml Drip) 125 ml @ 5 mls/hr TITRATE IV Last administered on 06/12/16 01:31; Admin Dose 5 MLS/HR; Start 06/09/16 at 17: 40 Digoxin (Digoxin) 250 mcg DAILY@13 IV Last administered on 06/12/16 12:30; Admin Dose 250 MCG; Start 06/10/16 at 13:00 Hydralazine HCl (Apresoline) 10 mg Q6H PRN IV SBP > 220; Start 06/09/16 at 20: 00 Enoxaparin Sodium 40 mg 40 mg QPM SC Last administered on 06/11/16 18:03; Admin Dose 40 MG; Start 06/11/16 at 17:45 Potassium Chloride/Dextrose/ Sod Cl (D5-1/2ns + KCl 20 Meq) 1,000 ml @ 50 mls/ hr Q20H IV Last administered on 06/12/16 12:29; Admin Dose 50 MLS/HR; Start at 19:30 LAMAR RUTH MD Jun 12, 2016 17:59
[2016-06-12] MEDS: METOPROLOL 50 MG TAB PO SCH (21:12)
[2016-06-12] MEDS: ENOXAPARIN 40 MG/0.4 ML SYG SC SCH (21:19)
[2016-06-13] VITALS (13 sets, daily range): BP systolic 114–157; BP diastolic 65–84; PULSE 85–123; RESP 16–20
[2016-06-13] MEDS: LEVALBUTEROL (NEB) 1.25 MG/0.5 ML AMP HHN SCH ×6 (00:29→20:42)
[2016-06-13] MEDS: D5W-0.45 NACL + KCL 20 MEQ 1,000 ML IV SCH (05:20)
[2016-06-13 06:27] LABS: ADD SCAN DIFF NO
[2016-06-13 06:41] LABS: BASOPHILS % 0.3 % (0.0-2.0); EOSINOPHILS # 0.2 10^3/ul (0.0-0.5); HEMATOCRIT 48.6 % (42.0-52.0); HEMOGLOBIN 15.9 g/dl (14.0-18.0); LYMPHOCYTES # 0.8 10^3/ul (0.8-2.9); LYMPHOCYTES % 10.7 % (15.0-51.0); MEAN CORPUSCULAR HEMOGLOBIN 30.8 pg (29.0-33.0); MEAN CORPUSCULAR HGB CONC 32.7 g/dl (32.0-37.0); MEAN PLATELET VOLUME 13.9 fl (7.4-10.4); MONOCYTE # 0.5 10^3/ul (0.3-0.9); MONOCYTES % 7.2 % (0.0-11.0); NEUTROPHIL # 5.6 10^3/ul (1.6-7.5); NEUTROPHILS % 78.5 % (39.0-77.0); PLATELET COUNT 125 10^3/UL (140-415); RED BLOOD COUNT 5.17 10^6/ul (4.70-6.10); RED CELL DISTRIBUTION WIDTH 16.2 % (11.5-14.5); WHITE BLOOD COUNT 7.1 10^3/ul (4.8-10.8)
[2016-06-13 07:13] LABS: CREATININE 0.89 mg/dl (0.61-1.24); POTASSIUM 4.3 mmol/L (3.5-5.1)
[2016-06-13 07:14] LABS: CALCIUM 9.3 mg/dl (8.4-10.2); MAGNESIUM 2.4 mg/dl (1.7-2.5)
[2016-06-13] MEDS: FUROSEMIDE 40 MG TAB PO SCH (08:29)
[2016-06-13] MEDS: DOCUSATE SODIUM 100 MG CAP PO SCH ×2 (08:29→21:32)
[2016-06-13] MEDS: ASPIRIN 81 MG TAB PO SCH (08:29)
[2016-06-13] MEDS: METOPROLOL 50 MG TAB PO SCH ×2 (08:30→21:19)
[2016-06-13] MEDS: SENNA TAB PO SCH ×2 (08:31→21:19)
[2016-06-13] MEDS: DIGOXIN 0.25 MG TAB PO SCH (12:26)
[2016-06-13] MEDS: DILTIAZEM 60 MG TAB PO SCH ×2 (12:28→18:40)
--- NOTE | 2016-06-13 16:35 | CONS ---
Date/Time of Note Date/Time of Note DATE: 06/13/16 TIME: 16:34 Assessment/Plan Assessment/Plan Chief Complaint/Hosp Course Right hemipareis and Aphasia Problems: Additional Assessment/Plan 80 years old male with acute ischemic stroke in the left middle cerebral artery territory, likely cardioembolic, given severe cardiomyopathy and global hypokinesis and atrial flutter. Plan: 1 Continue current treatment. 2 Keep normotensive, euglycemic. 3 Continue aspirin. 4 No statin for currently because of transaminitis, but if liver function improves, will consider. 5 Keep patient euglycemic. 6 Continue Speech therapy, swallow evaluation, and physical therapy. 7 consider rehab. Consultation Date/Type/Reason Admit Date/Time Jun 07, 2016 at 21:23 Type of Consultation: Cardiology 24 HR Interval Summary Free Text/Dictation Clinically unchanged Exam/Review of Systems Vital Signs Vitals Vital Signs Date Time Temp Pulse Resp B/P Pulse Ox O2 Delivery O2 Flow Rate FiO2 06/13/16 16:10 85 06/13/16 15:05 98.7 18 127/79 99 06/13/16 12:42 3.0 06/13/16 12:41 Nasal Cannula 06/10/16 16:38 32 Intake and Output 06/12/16 06/12/16 06/13/16 15:00 23:00 07:00 Intake Total 1255 ml 630 ml Balance 1255 ml 630 ml Exam Constitutional: alert Psych: nl mood/affect Head: atraumatic, normocephalic Eyes: EOMI, nl conjunctiva, nl lids, nl sclera ENMT: mucosa pink and moist, nl external ears & nose, nl lips & teeth, nl nasal mucosa & septum Neck: non-tender, supple Respiratory: clear to auscultation, normal air movement Cardiovascular: nl pulses, regular rate and rhythm Gastrointestinal: nl liver, spleen, non-tender, soft Extremities: normal pulses (Alert, Aphasic, right hemiparetic) Skin: nl turgor Lymph: nl lymph nodes Results Result Diagram: 06/13/16 0515 06/13/16 0515 Results 24 hrs Laboratory Tests Test 06/13/16 05:15 Anion Gap 15 Basophils # 0.0 Basophils % 0.3 Blood Urea Nitrogen 30 H Calcium Level 9.3 Carbon Dioxide Level 27 Chloride Level 109 Creatinine 0.89 Eosinophils # 0.2 Eosinophils % 3.0 Glucose Level 102 Hematocrit 48.6 Hemoglobin 15.9 Lymphocytes # 0.8 Lymphocytes % 10.7 L Magnesium Level 2.4 Mean Corpuscular Hemoglobin 30.8 Mean Corpuscular Hemoglobin Concent 32.7 Mean Corpuscular Volume 94.0 Mean Platelet Volume 13.9 H Monocytes # 0.5 Monocytes % 7.2 Neutrophils # 5.6 Neutrophils % 78.5 H Nucleated Red Blood Cells # 0.0 Nucleated Red Blood Cells % 0.0 Platelet Count 125 L Potassium Level 4.3 Red Blood Count 5.17 Red Cell Distribution Width 16.2 H Sodium Level 147 H White Blood Count 7.1 Medications Medications Current Medications Aspirin (Aspirin) 81 mg DAILY PO Last administered on 06/13/16 08:29; Admin Dose 81 MG; Start 06/08/16 at 09:00 Docusate Sodium (Colace) 100 mg BID PO Last administered on 06/13/16 08:29; Admin Dose 100 MG; Start 06/08/16 at 21:00 Senna (Senokot) 1 tab BID PO Last administered on 06/13/16 08:31; Admin Dose 1 TAB; Start 06/08/16 at 21:00 Lorazepam (Ativan) 1 mg Q6H PRN IV AGITATION/ANXIETY Last administered on 20:16; Admin Dose 1 MG; Start 06/09/16 at 11:10 Hydralazine HCl (Apresoline) 10 mg Q6H PRN IV SBP > 220; Start 06/09/16 at 20: 00 Enoxaparin Sodium 40 mg 40 mg QPM SC Last administered on 06/12/16 21:19; Admin Dose 40 MG; Start 06/11/16 at 17:45 Potassium Chloride/Dextrose/ Sod Cl (D5-1/2ns + KCl 20 Meq) 1,000 ml @ 50 mls/ hr Q20H IV Last administered on 06/13/16 05:20; Admin Dose 50 MLS/HR; Start at 19:30 Metoprolol Tartrate (Lopressor) 50 mg BID PO Last administered on 06/13/16 08: 30; Admin Dose 50 MG; Start 06/12/16 at 21:00 Diltiazem HCl (Cardizem) 60 mg Q6 PRN PO HR>120 Last administered on 06/13/16 09:08; Admin Dose 60 MG; Start 06/12/16 at 18:00 Digoxin (Digoxin) 0.25 mg DAILY@13 PO Last administered on 06/13/16 12:26; Admin Dose 0.25 MG; Start 06/13/16 at 13:00 Furosemide (Lasix) 40 mg DAILY PO Last administered on 06/13/16 08:29; Admin Dose 40 MG; Start 06/13/16 at 09:00 Diltiazem HCl (Cardizem) 60 mg Q6 PO Last administered on 06/13/16 12:28; Admin Dose 60 MG; Start 06/13/16 at 12:00 HAILEY SAMS MD Jun 13, 2016 16:35
--- NOTE | 2016-06-13 18:09 | PN ---
Date/Time of Note Date/Time of Note DATE: 06/13/16 TIME: 18:06 Assessment/Plan VTE Prophylaxis VTE Prophylaxis Intervention: LMWH Lines/Catheters IV [facility] (from [facility] Saline Lock Urinary Cath still in place: No Assessment/Plan Chief Complaint/Hosp Course 1) Atrial flutter-heart rate elevated today Cardiology consult appreciated Started Cardizem p.o. 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 5) Atypical chest pain No evidence of ACS at this time, troponins are negative Prophylaxis: Lovenox Problems: Subjective 24 Hr Interval Summary Constitutional: disoriented Exam/Review of Systems Vital Signs Vitals Vital Signs Date Time Temp Pulse Resp B/P Pulse Ox O2 Delivery O2 Flow Rate FiO2 06/13/16 17:01 84 90 97 Nasal Cannula 3.0 06/13/16 15:05 98.7 127/79 06/10/16 16:38 32 Intake and Output 06/12/16 06/12/16 06/13/16 15:00 23:00 07:00 Intake Total 1255 ml 630 ml Balance 1255 ml 630 ml Exam Constitutional: non-verbal Respiratory: clear to auscultation Cardiovascular: regular rate and rhythm Gastrointestinal: soft, No distended Musculoskeletal: nl extremities to inspection Results Result Diagram: 06/13/16 0515 06/13/16 0515 Results 24 hrs Laboratory Tests Test 06/13/16 05:15 Anion Gap 15 Basophils # 0.0 Basophils % 0.3 Blood Urea Nitrogen 30 H Calcium Level 9.3 Carbon Dioxide Level 27 Chloride Level 109 Creatinine 0.89 Eosinophils # 0.2 Eosinophils % 3.0 Glucose Level 102 Hematocrit 48.6 Hemoglobin 15.9 Lymphocytes # 0.8 Lymphocytes % 10.7 L Magnesium Level 2.4 Mean Corpuscular Hemoglobin 30.8 Mean Corpuscular Hemoglobin Concent 32.7 Mean Corpuscular Volume 94.0 Mean Platelet Volume 13.9 H Monocytes # 0.5 Monocytes % 7.2 Neutrophils # 5.6 Neutrophils % 78.5 H Nucleated Red Blood Cells # 0.0 Nucleated Red Blood Cells % 0.0 Platelet Count 125 L Potassium Level 4.3 Red Blood Count 5.17 Red Cell Distribution Width 16.2 H Sodium Level 147 H White Blood Count 7.1 Medications Medications Current Medications Aspirin (Aspirin) 81 mg DAILY PO Last administered on 06/13/16 08:29; Admin Dose 81 MG; Start 06/08/16 at 09:00 Docusate Sodium (Colace) 100 mg BID PO Last administered on 06/13/16 08:29; Admin Dose 100 MG; Start 06/08/16 at 21:00 Senna (Senokot) 1 tab BID PO Last administered on 06/13/16 08:31; Admin Dose 1 TAB; Start 06/08/16 at 21:00 Lorazepam (Ativan) 1 mg Q6H PRN IV AGITATION/ANXIETY Last administered on 20:16; Admin Dose 1 MG; Start 06/09/16 at 11:10 Hydralazine HCl (Apresoline) 10 mg Q6H PRN IV SBP > 220; Start 06/09/16 at 20: 00 Enoxaparin Sodium 40 mg 40 mg QPM SC Last administered on 06/12/16 21:19; Admin Dose 40 MG; Start 06/11/16 at 17:45 Potassium Chloride/Dextrose/ Sod Cl (D5-1/2ns + KCl 20 Meq) 1,000 ml @ 50 mls/ hr Q20H IV Last administered on 06/13/16 05:20; Admin Dose 50 MLS/HR; Start at 19:30 Metoprolol Tartrate (Lopressor) 50 mg BID PO Last administered on 06/13/16 08: 30; Admin Dose 50 MG; Start 06/12/16 at 21:00 Diltiazem HCl (Cardizem) 60 mg Q6 PRN PO HR>120 Last administered on 06/13/16 09:08; Admin Dose 60 MG; Start 06/12/16 at 18:00 Digoxin (Digoxin) 0.25 mg DAILY@13 PO Last administered on 06/13/16 12:26; Admin Dose 0.25 MG; Start 06/13/16 at 13:00 Furosemide (Lasix) 40 mg DAILY PO Last administered on 06/13/16 08:29; Admin Dose 40 MG; Start 06/13/16 at 09:00 Diltiazem HCl (Cardizem) 60 mg Q6 PO Last administered on 06/13/16 12:28; Admin Dose 60 MG; Start 06/13/16 at 12:00 SADIA SON Jun 13, 2016 18:09
[2016-06-13] MEDS: ENOXAPARIN 40 MG/0.4 ML SYG SC SCH (21:31)
[2016-06-14] VITALS (12 sets, daily range): BP systolic 98–133; BP diastolic 62–91; PULSE 59–98; RESP 16–20
[2016-06-14] MEDS: DILTIAZEM 60 MG TAB PO SCH ×4 (00:20→13:05)
[2016-06-14] MEDS: D5W-0.45 NACL + KCL 20 MEQ 1,000 ML IV SCH ×3 (00:40→20:48)
[2016-06-14] MEDS: LEVALBUTEROL (NEB) 1.25 MG/0.5 ML AMP HHN SCH ×6 (01:20→20:26)
[2016-06-14 05:55] LABS: ADD SCAN DIFF NO
[2016-06-14 06:03] LABS: BASOPHILS % 0.1 % (0.0-2.0); EOSINOPHILS # 0.3 10^3/ul (0.0-0.5); EOSINOPHILS % 4.9 % (0.0-7.0); HEMATOCRIT 47.5 % (42.0-52.0); HEMOGLOBIN 15.7 g/dl (14.0-18.0); LYMPHOCYTES # 1.3 10^3/ul (0.8-2.9); MEAN CORPUSCULAR HEMOGLOBIN 30.9 pg (29.0-33.0); MEAN CORPUSCULAR HGB CONC 33.1 g/dl (32.0-37.0); MEAN CORPUSCULAR VOLUME 93.5 fl (82.0-101.0); MEAN PLATELET VOLUME 13.3 fl (7.4-10.4); MONOCYTE # 0.6 10^3/ul (0.3-0.9); MONOCYTES % 7.9 % (0.0-11.0); NEUTROPHIL # 4.7 10^3/ul (1.6-7.5); NEUTROPHILS % 67.7 % (39.0-77.0); PLATELET COUNT 134 10^3/UL (140-415); RED BLOOD COUNT 5.08 10^6/ul (4.70-6.10); RED CELL DISTRIBUTION WIDTH 15.8 % (11.5-14.5)
[2016-06-14 06:29] LABS: POTASSIUM 4.1 mmol/L (3.5-5.1)
[2016-06-14 06:31] LABS: CREATININE 0.79 mg/dl (0.61-1.24)
[2016-06-14 06:32] LABS: CALCIUM 8.8 mg/dl (8.4-10.2)
[2016-06-14] MEDS: DOCUSATE SODIUM 100 MG CAP PO SCH ×2 (08:52→20:33)
[2016-06-14] MEDS: FUROSEMIDE 40 MG TAB PO SCH (08:52)
[2016-06-14] MEDS: ASPIRIN 81 MG TAB PO SCH (08:52)
[2016-06-14] MEDS: SENNA TAB PO SCH ×2 (08:52→20:33)
[2016-06-14] MEDS: METOPROLOL 50 MG TAB PO SCH ×2 (08:52→20:34)
[2016-06-14] MEDS: DIGOXIN 0.25 MG TAB PO SCH ×2 (13:00→13:04)
--- NOTE | 2016-06-14 13:37 | PN ---
Date/Time of Note Date/Time of Note DATE: 06/14/16 TIME: 13:34 Assessment/Plan VTE Prophylaxis VTE Prophylaxis Intervention: LMWH Lines/Catheters IV Catheter Type (from Nrs): Saline Lock Urinary Cath still in place: No Assessment/Plan Chief Complaint/Hosp Course 1) Atrial flutter-heart rate elevated today Cardiology consult appreciated cont BB and Dig, DC scheduled Cardizem, pt refusing meds 2) Acute encephalopathy secondary to left MCA territory infarct Code stroke was called at 4 AM, telemetry neurology evaluate the patient the last time patient was seen normal reportedly was at 8 PM hence no TPA was given MRI does show a left MCA territory infarct Neurology consultation appreciated, PT and ST eval, patient is ambulating with physical therapy, [facility] 3) Acute on chronic systolic CHF exacerbation EF on echo shows an ejection fraction of 15%, patient has a history of CHF Continue diuresis, cards consult appreciated 4) 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 5) Atypical chest pain No evidence of ACS at this time, troponins are negative Prophylaxis: Lovenox Problems: Subjective 24 Hr Interval Summary Constitutional: no complaints Exam/Review of Systems Vital Signs Vitals Vital Signs Date Time Temp Pulse Resp B/P Pulse Ox O2 Delivery O2 Flow Rate FiO2 06/14/16 12:39 92 23 97 Nasal Cannula 3.0 06/14/16 11:34 97.8 119/74 06/10/16 16:38 32 Intake and Output 06/13/16 06/13/16 06/14/16 15:00 23:00 07:00 Intake Total 640 ml 650 ml Output Total 700 ml Balance -60 ml 650 ml Exam Constitutional: alert Respiratory: clear to auscultation Cardiovascular: regular rate and rhythm Gastrointestinal: soft, No distended Musculoskeletal: nl extremities to inspection Results Result Diagram: 06/14/1619 06/14/16 0519 Results 24 hrs Laboratory Tests Test 06/14/16 05:19 Anion Gap 13 Basophils # 0.0 Basophils % 0.1 Blood Urea Nitrogen 27 H Calcium Level 8.8 Carbon Dioxide Level 29 Chloride Level 106 Creatinine 0.79 Eosinophils # 0.3 Eosinophils % 4.9 Glucose Level 106 Hematocrit 47.5 Hemoglobin 15.7 Lymphocytes # 1.3 Lymphocytes % 19.0 Mean Corpuscular Hemoglobin 30.9 Mean Corpuscular Hemoglobin Concent 33.1 Mean Corpuscular Volume 93.5 Mean Platelet Volume 13.3 H Monocytes # 0.6 Monocytes % 7.9 Neutrophils # 4.7 Neutrophils % 67.7 Nucleated Red Blood Cells # 0.0 Nucleated Red Blood Cells % 0.0 Platelet Count 134 L Potassium Level 4.1 Red Blood Count 5.08 Red Cell Distribution Width 15.8 H Sodium Level 144 White Blood Count 7.0 Medications Medications Current Medications Aspirin (Aspirin) 81 mg DAILY PO Last administered on 06/14/16 08:52; Admin Dose 81 MG; Start 06/08/16 at 09:00 Docusate Sodium (Colace) 100 mg BID PO Last administered on 06/14/16 08:52; Admin Dose 100 MG; Start 06/08/16 at 21:00 Senna (Senokot) 1 tab BID PO Last administered on 06/14/16 08:52; Admin Dose 1 TAB; Start 06/08/16 at 21:00 Lorazepam (Ativan) 1 mg Q6H PRN IV AGITATION/ANXIETY Last administered on 20:16; Admin Dose 1 MG; Start 06/09/16 at 11:10 Hydralazine HCl (Apresoline) 10 mg Q6H PRN IV SBP > 220; Start 06/09/16 at 20: 00 Enoxaparin Sodium 40 mg 40 mg QPM SC Last administered on 06/13/16 21:31; Admin Dose 40 MG; Start 06/11/16 at 17:45 Potassium Chloride/Dextrose/ Sod Cl (D5-1/2ns + KCl 20 Meq) 1,000 ml @ 50 mls/ hr Q20H IV Last administered on 06/14/16 00:40; Admin Dose 50 MLS/HR; Start at 19:30 Metoprolol Tartrate (Lopressor) 50 mg BID PO Last administered on 06/14/16 08: 52; Admin Dose 50 MG; Start 06/12/16 at 21:00 Diltiazem HCl (Cardizem) 60 mg Q6 PRN PO HR>120 Last administered on 06/13/16 09:08; Admin Dose 60 MG; Start 06/12/16 at 18:00 Digoxin (Digoxin) 0.25 mg DAILY@13 PO Last administered on 06/13/16 12:26; Admin Dose 0.25 MG; Start 06/13/16 at 13:00 Furosemide (Lasix) 40 mg DAILY PO Last administered on 06/14/16 08:52; Admin Dose 40 MG; Start 06/13/16 at 09:00 Diltiazem HCl (Cardizem) 60 mg Q6 PO Last administered on 06/14/16 00:20; Admin Dose 60 MG; Start 06/13/16 at 12:00 SADIA SON Jun 14, 2016 13:37
--- NOTE | 2016-06-14 16:02 | CONS ---
Date/Time of Note Date/Time of Note DATE: 06/14/16 TIME: 16:00 Assessment/Plan Assessment/Plan Chief Complaint/Hosp Course Right hemipareis and Aphasia Problems: Additional Assessment/Plan 80 years old male with acute ischemic stroke in the left middle cerebral artery territory, likely cardioembolic, given severe cardiomyopathy and global hypokinesis and atrial flutter. Plan: 1 Continue current treatment. 2 Keep normotensive, euglycemic. 3 Continue aspirin. 4 No statin for currently because of transaminitis, but if liver function improves, will consider. 5 Keep patient euglycemic. 6 Continue Speech therapy, swallow evaluation, and physical therapy. 7 consider rehab. Consultation Date/Type/Reason Admit Date/Time Jun 07, 2016 at 21:23 Type of Consultation: Cardiology 24 HR Interval Summary Free Text/Dictation Unchanged clinically Exam/Review of Systems Vital Signs Vitals Vital Signs Date Time Temp Pulse Resp B/P Pulse Ox O2 Delivery O2 Flow Rate FiO2 06/14/16 12:39 92 23 97 Nasal Cannula 3.0 06/14/16 11:34 97.8 119/74 06/10/16 16:38 32 Intake and Output 06/13/16 06/13/16 06/14/16 15:00 23:00 07:00 Intake Total 640 ml 650 ml Output Total 700 ml Balance -60 ml 650 ml Exam Constitutional: alert Psych: no complaints Head: atraumatic, normocephalic Eyes: EOMI, nl conjunctiva, nl lids, nl sclera ENMT: mucosa pink and moist, nl external ears & nose, nl lips & teeth, nl nasal mucosa & septum Neck: non-tender, supple Respiratory: clear to auscultation, normal air movement Cardiovascular: nl pulses, regular rate and rhythm Gastrointestinal: nl liver, spleen, non-tender, soft Musculoskeletal: nl extremities to inspection Extremities: normal pulses Neurological: other (Right hemiparesis and Aphasia) Skin: nl turgor, rash or lesions Lymph: nl lymph nodes Results Result Diagram: 06/14/1619 06/14/16 0519 Results 24 hrs Laboratory Tests Test 06/14/16 05:19 Anion Gap 13 Basophils # 0.0 Basophils % 0.1 Blood Urea Nitrogen 27 H Calcium Level 8.8 Carbon Dioxide Level 29 Chloride Level 106 Creatinine 0.79 Eosinophils # 0.3 Eosinophils % 4.9 Glucose Level 106 Hematocrit 47.5 Hemoglobin 15.7 Lymphocytes # 1.3 Lymphocytes % 19.0 Mean Corpuscular Hemoglobin 30.9 Mean Corpuscular Hemoglobin Concent 33.1 Mean Corpuscular Volume 93.5 Mean Platelet Volume 13.3 H Monocytes # 0.6 Monocytes % 7.9 Neutrophils # 4.7 Neutrophils % 67.7 Nucleated Red Blood Cells # 0.0 Nucleated Red Blood Cells % 0.0 Platelet Count 134 L Potassium Level 4.1 Red Blood Count 5.08 Red Cell Distribution Width 15.8 H Sodium Level 144 White Blood Count 7.0 Medications Medications Current Medications Aspirin (Aspirin) 81 mg DAILY PO Last administered on 06/14/16 08:52; Admin Dose 81 MG; Start 06/08/16 at 09:00 Docusate Sodium (Colace) 100 mg BID PO Last administered on 06/14/16 08:52; Admin Dose 100 MG; Start 06/08/16 at 21:00 Senna (Senokot) 1 tab BID PO Last administered on 06/14/16 08:52; Admin Dose 1 TAB; Start 06/08/16 at 21:00 Lorazepam (Ativan) 1 mg Q6H PRN IV AGITATION/ANXIETY Last administered on 20:16; Admin Dose 1 MG; Start 06/09/16 at 11:10 Hydralazine HCl (Apresoline) 10 mg Q6H PRN IV SBP > 220; Start 06/09/16 at 20: 00 Enoxaparin Sodium 40 mg 40 mg QPM SC Last administered on 06/13/16 21:31; Admin Dose 40 MG; Start 06/11/16 at 17:45 Potassium Chloride/Dextrose/ Sod Cl (D5-1/2ns + KCl 20 Meq) 1,000 ml @ 50 mls/ hr Q20H IV Last administered on 06/14/16 00:40; Admin Dose 50 MLS/HR; Start at 19:30 Metoprolol Tartrate (Lopressor) 50 mg BID PO Last administered on 06/14/16 08: 52; Admin Dose 50 MG; Start 06/12/16 at 21:00 Diltiazem HCl (Cardizem) 60 mg Q6 PRN PO HR>120 Last administered on 06/13/16 09:08; Admin Dose 60 MG; Start 06/12/16 at 18:00 Digoxin (Digoxin) 0.25 mg DAILY@13 PO Last administered on 06/13/16 12:26; Admin Dose 0.25 MG; Start 06/13/16 at 13:00 Furosemide (Lasix) 40 mg DAILY PO Last administered on 06/14/16 08:52; Admin Dose 40 MG; Start 06/13/16 at 09:00 HAILEY SAMS MD Jun 14, 2016 16:01
--- NOTE | 2016-06-14 19:08 | CONS ---
Date/Time of Note Date/Time of Note DATE: 06/14/16 TIME: 19:06 Assessment/Plan Assessment/Plan Chief Complaint/Hosp Course Assessment: Acute left MCA stroke - possibly cardioembolic Typical atrial flutter, onset >48 hours at presentation - controlled ventricular rates Acute on chronic systolic heart failure - improving with diuresis Ischemic cardiomyopathy - LVEF<25%, no reversible defects on Lexiscan SPECT April 2015 Chronic left bundle branch block Coronary artery disease, history of coronary stenting - details unknown Hypertension Dyslipidemia Transaminitis Recommendations: -continue Lasix 40mg PO daily -continue digoxin 0.25mg PO daily -continue metoprolol 50mg PO BID, diltiazem PO PRN -continue aspirin 81mg daily -off anticoagulation due to risk for hemorrhagic conversion, resume when stable after acute stroke (>2 weeks per neurology) -holding atorvastatin in setting of transaminitis -will eventually also need evaluation for atrial flutter ablation and primary prevention ICD as outpatient Problems: Consultation Date/Type/Reason Admit Date/Time Jun 07, 2016 at 21:23 Type of Consultation: Cardiology 24 HR Interval Summary Free Text/Dictation Remains in atrial flutter. Rapid ventricular rates yesterday and was started on diltiazem. Then slow ventricular rates and diltiazem changes to PRN. Patient refusing medications today. Detailed Summary Additional Comments Unable to obtain review of systems, patient nonverbal. Exam/Review of Systems Vital Signs Vitals Vital Signs Date Time Temp Pulse Resp B/P Pulse Ox O2 Delivery O2 Flow Rate FiO2 06/14/16 16:51 79 06/14/16 16:23 97.8 20 133/82 99 06/14/16 16:13 Nasal Cannula 3.0 06/10/16 16:38 32 Intake and Output 06/13/16 06/13/16 06/14/16 15:00 23:00 07:00 Intake Total 640 ml 650 ml Output Total 700 ml Balance -60 ml 650 ml Exam Constitutional: alert, no distress Psych: not nl mood/affect Head: atraumatic, normocephalic Eyes: nl conjunctiva, nl lids ENMT: nl external ears & nose, nl nasal mucosa & septum Neck: jvd, non-tender, supple Respiratory: diminished breath sounds, No wheezing Cardiovascular: other (tachycardic) Gastrointestinal: non-tender, soft Musculoskeletal: nl extremities to inspection Extremities: No clubbing, No edema Neurological: not nl mental status, nonverbal Results Result Diagram: 06/14/16 0519 06/14/16 0519 Results 24 hrs Laboratory Tests Test 06/14/16 05:19 Anion Gap 13 Basophils # 0.0 Basophils % 0.1 Blood Urea Nitrogen 27 H Calcium Level 8.8 Carbon Dioxide Level 29 Chloride Level 106 Creatinine 0.79 Eosinophils # 0.3 Eosinophils % 4.9 Glucose Level 106 Hematocrit 47.5 Hemoglobin 15.7 Lymphocytes # 1.3 Lymphocytes % 19.0 Mean Corpuscular Hemoglobin 30.9 Mean Corpuscular Hemoglobin Concent 33.1 Mean Corpuscular Volume 93.5 Mean Platelet Volume 13.3 H Monocytes # 0.6 Monocytes % 7.9 Neutrophils # 4.7 Neutrophils % 67.7 Nucleated Red Blood Cells # 0.0 Nucleated Red Blood Cells % 0.0 Platelet Count 134 L Potassium Level 4.1 Red Blood Count 5.08 Red Cell Distribution Width 15.8 H Sodium Level 144 White Blood Count 7.0 Medications Medications Current Medications Aspirin (Aspirin) 81 mg DAILY PO Last administered on 06/14/16 08:52; Admin Dose 81 MG; Start 06/08/16 at 09:00 Docusate Sodium (Colace) 100 mg BID PO Last administered on 06/14/16 08:52; Admin Dose 100 MG; Start 06/08/16 at 21:00 Senna (Senokot) 1 tab BID PO Last administered on 06/14/16 08:52; Admin Dose 1 TAB; Start 06/08/16 at 21:00 Lorazepam (Ativan) 1 mg Q6H PRN IV AGITATION/ANXIETY Last administered on 20:16; Admin Dose 1 MG; Start 06/09/16 at 11:10 Hydralazine HCl (Apresoline) 10 mg Q6H PRN IV SBP > 220; Start 06/09/16 at 20: 00 Enoxaparin Sodium 40 mg 40 mg QPM SC Last administered on 06/13/16 21:31; Admin Dose 40 MG; Start 06/11/16 at 17:45 Potassium Chloride/Dextrose/ Sod Cl (D5-1/2ns + KCl 20 Meq) 1,000 ml @ 50 mls/ hr Q20H IV Last administered on 06/14/16 00:40; Admin Dose 50 MLS/HR; Start at 19:30 Metoprolol Tartrate (Lopressor) 50 mg BID PO Last administered on 06/14/16 08: 52; Admin Dose 50 MG; Start 06/12/16 at 21:00 Diltiazem HCl (Cardizem) 60 mg Q6 PRN PO HR>120 Last administered on 06/13/16 09:08; Admin Dose 60 MG; Start 06/12/16 at 18:00 Digoxin (Digoxin) 0.25 mg DAILY@13 PO Last administered on 06/13/16 12:26; Admin Dose 0.25 MG; Start 06/13/16 at 13:00 Furosemide (Lasix) 40 mg DAILY PO Last administered on 06/14/16 08:52; Admin Dose 40 MG; Start 06/13/16 at 09:00 LAMAR RUTH MD Jun 14, 2016 19:08
[2016-06-14] MEDS: ENOXAPARIN 40 MG/0.4 ML SYG SC SCH (20:37)
[2016-06-15] VITALS (14 sets, daily range): BP systolic 90–129; BP diastolic 62–90; PULSE 81–145; RESP 16–24
[2016-06-15] MEDS: LEVALBUTEROL (NEB) 1.25 MG/0.5 ML AMP HHN SCH ×6 (00:48→20:34)
[2016-06-15] MEDS: D5W-0.45 NACL + KCL 20 MEQ 1,000 ML IV SCH ×2 (03:30→18:25)
[2016-06-15] MEDS: SENNA TAB PO SCH ×2 (08:48→21:25)
[2016-06-15] MEDS: ASPIRIN 81 MG TAB PO SCH (08:48)
[2016-06-15] MEDS: DOCUSATE SODIUM 100 MG CAP PO SCH ×2 (08:48→21:25)
[2016-06-15] MEDS: METOPROLOL 50 MG TAB PO SCH (08:49)
[2016-06-15] MEDS: FUROSEMIDE 40 MG TAB PO SCH (08:49)
--- NOTE | 2016-06-15 09:59 | CONS ---
Date/Time of Note Date/Time of Note DATE: 06/15/16 TIME: 09:55 Assessment/Plan Assessment/Plan Chief Complaint/Hosp Course Acute left MCA stroke - likely cardioembolic Typical atrial flutter/afib, onset >48 hours at presentation - rates mostly controlled but has been refusing meds at times Acute on chronic systolic heart failure - euvolemic Ischemic cardiomyopathy - LVEF<25%, no reversible defects on Lexiscan SPECT April 2015 Chronic left bundle branch block Coronary artery disease, history of coronary stenting - details unknown Hypertension Dyslipidemia Transaminitis -continue Lasix 40mg PO daily -decrease to digoxin 0.125mg PO daily due to advanced age, check levels in 2 days -switch metoprolol to bisoprolol 5mg BID due to underlying cardiomyopathy -continue aspirin 81mg daily -off anticoagulation due to risk for hemorrhagic conversion, resume when stable after acute stroke (>2 weeks per neurology) -recheck LFTs, possibly start statin if resolved Problems: Consultation Date/Type/Reason Admit Date/Time Jun 07, 2016 at 21:23 Initial Consult Date Type of Consultation: Cardiology 24 HR Interval Summary Free Text/Dictation No o/n events. Pt refused some of his pills yesterday. He is nonverbal but per the daughter he understands. She notes that he does not like the taste of the crushed meds in apple sauce but will take it if given with more of the apple sauce. Exam/Review of Systems Vital Signs Vitals Vital Signs Date Time Temp Pulse Resp B/P Pulse Ox O2 Delivery O2 Flow Rate FiO2 06/15/16 08:41 98.2 98 24 119/90 99 Nasal Cannula 2.0 Intake and Output 06/14/16 06/14/16 06/15/16 15:00 23:00 07:00 Intake Total 920 ml 610 ml Output Total 350 ml 450 ml Balance 570 ml 160 ml Exam Constitutional: alert, non-verbal Head: atraumatic, normocephalic Neck: No jvd Respiratory: diminished breath sounds Cardiovascular: systolic murmur (2/6), No edema, No regular rate and rhythm (IRIR) Gastrointestinal: soft Neurological: No nl mental status Results Result Diagram: 06/14/16 0519 06/14/16 0519 Medications Medications Current Medications Aspirin (Aspirin) 81 mg DAILY PO Last administered on 06/15/16t 08:48; Admin Dose 81 MG; Start 06/08/16 at 09:00 Docusate Sodium (Colace) 100 mg BID PO Last administered on 06/15/16 08:48; Admin Dose 100 MG; Start 06/08/16 at 21:00 Senna (Senokot) 1 tab BID PO Last administered on 06/15/16 08:48; Admin Dose 1 TAB; Start 06/08/16 at 21:00 Lorazepam (Ativan) 1 mg Q6H PRN IV AGITATION/ANXIETY Last administered on 20:16; Admin Dose 1 MG; Start 06/09/16 at 11:10 Hydralazine HCl (Apresoline) 10 mg Q6H PRN IV SBP > 220; Start 06/09/16 at 20: 00 Enoxaparin Sodium 40 mg 40 mg QPM SC Last administered on 06/14/16 20:37; Admin Dose 40 MG; Start 06/11/16 at 17:45 Potassium Chloride/Dextrose/ Sod Cl (D5-1/2ns + KCl 20 Meq) 1,000 ml @ 50 mls/ hr Q20H IV Last administered on 06/14/16 20:48; Admin Dose 50 MLS/HR; Start at 19:30 Metoprolol Tartrate (Lopressor) 50 mg BID PO Last administered on 06/15/16 08: 49; Admin Dose 50 MG; Start 06/12/16 at 21:00; Stop 06/15/16 at 10:30 Diltiazem HCl (Cardizem) 60 mg Q6 PRN PO HR>120 Last administered on 06/13/16 09:08; Admin Dose 60 MG; Start 06/12/16 at 18:00 Furosemide (Lasix) 40 mg DAILY PO Last administered on 06/15/16 08:49; Admin Dose 40 MG; Start 06/13/16 at 09:00 Digoxin (Digoxin) 0.125 mg DAILY@13 PO ; Start 06/15/16 at 13:00 Bisoprolol Fumarate (Zebeta) 5 mg BID PO ; Start 06/15/16 at 21:00 KIKI BOWEN 20, 2017 09:59
[2016-06-15] MEDS: DIGOXIN 0.25 MG TAB PO SCH (13:07)
--- NOTE | 2016-06-15 16:45 | PN ---
Date/Time of Note Date/Time of Note DATE: 06/15/16 TIME: 16:38 Assessment/Plan VTE Prophylaxis VTE Prophylaxis Intervention: contraindicated VTE Contraindication Reason: bleeding (risk) Lines/Catheters IV Catheter Type (from Nrs): Saline Lock Urinary Cath still in place: No Assessment/Plan Chief Complaint/Hosp Course A/P 1) Ac decompensated systolic CHF; stable, cont medical mngmnt 2) Ac Ischemic Lt mca stroke. high hemorrhagic risk; cont pt/ot/st 3) A Fib; no coumadin/lovenox for ~2wks. +/- cardiac eval if functional status improves 4) Dysphagia; st eval/ calorie count 5) Aphasia 6) Ftt; snf vs acute rehab 7) Ho Ca Prostate 8) Tongue cancer? ENT once stable 9) Ischemic cardiomyopathy; EF=25%; medical mngmnt; doubt cath/cabg candidate. 10) Likely CAD; agree w palliative/ supportive care 11) LBBB 12) MR+ 13) Pul Htn? 14) Abn Lft's--passive congestion? potential statin soon 15) Htn/ Dyslipidemia 16) Nonadherence Problems: Subjective 24 Hr Interval Summary Free Text/Dictation Alert, tolerates some diet, but mostly aphasic w dense rt hemiparesis. Family updated: needs rehab; +/- peg if calorie intake fails. Exam/Review of Systems Vital Signs Vitals Vital Signs Date Time Temp Pulse Resp B/P Pulse Ox O2 Delivery O2 Flow Rate FiO2 06/15/16 16:06 97.6 95 20 129/77 99 06/15/16 12:50 3.0 06/15/16 12:49 Room Air Intake and Output 06/14/16 06/14/16 06/15/16 15:00 23:00 07:00 Intake Total 920 ml 610 ml Output Total 350 ml 450 ml Balance 570 ml 160 ml Exam Constitutional: alert Respiratory: clear to auscultation Cardiovascular: regular rate and rhythm Gastrointestinal: non-tender, soft Extremities: other (no edema) Neurological: focal weakness (Rt) Results Result Diagram: 06/14/1651806/14/16518 Medications Medications Current Medications Aspirin (Aspirin) 81 mg DAILY PO Last administered on 06/15/16t 08:48; Admin Dose 81 MG; Start 06/08/16 at 09:00 Docusate Sodium (Colace) 100 mg BID PO Last administered on 06/15/16 08:48; Admin Dose 100 MG; Start 06/08/16 at 21:00 Senna (Senokot) 1 tab BID PO Last administered on 06/15/16 08:48; Admin Dose 1 TAB; Start 06/08/16 at 21:00 Lorazepam (Ativan) 1 mg Q6H PRN IV AGITATION/ANXIETY Last administered on 20:16; Admin Dose 1 MG; Start 06/09/16 at 11:10 Hydralazine HCl (Apresoline) 10 mg Q6H PRN IV SBP > 220; Start 06/09/16 at 20: 00 Enoxaparin Sodium 40 mg 40 mg QPM SC Last administered on 06/14/16 20:37; Admin Dose 40 MG; Start 06/11/16 at 17:45 Potassium Chloride/Dextrose/ Sod Cl (D5-1/2ns + KCl 20 Meq) 1,000 ml @ 50 mls/ hr Q20H IV Last administered on 06/14/16 20:48; Admin Dose 50 MLS/HR; Start at 19:30 Diltiazem HCl (Cardizem) 60 mg Q6 PRN PO HR>120 Last administered on 06/13/16 09:08; Admin Dose 60 MG; Start 06/12/16 at 18:00 Furosemide (Lasix) 40 mg DAILY PO Last administered on 06/15/16 08:49; Admin Dose 40 MG; Start 06/13/16 at 09:00 Digoxin (Digoxin) 0.125 mg DAILY@13 PO Last administered on 06/15/16 13:07; Admin Dose 0.125 MG; Start 06/15/16 at 13:00 Bisoprolol Fumarate (Zebeta) 5 mg BID PO ; Start 06/15/16 at 21:00 VASQUEZ ROBLEDO MD Jun 15, 2016 16:45
[2016-06-15] MEDS: BISOPROLOL 5 MG TAB PO SCH (21:00)
[2016-06-15] MEDS: ENOXAPARIN 40 MG/0.4 ML SYG SC SCH (21:44)
[2016-06-16] MEDS: LEVALBUTEROL (NEB) 1.25 MG/0.5 ML AMP HHN SCH ×5 (01:22→15:50)
[2016-06-16 03:36] VITALS: BP 124/83; RESP 16
[2016-06-16 07:31] VITALS: BP 121/75; RESP 18
[2016-06-16 07:32] LABS: ADD SCAN DIFF NO
[2016-06-16 07:55] LABS: BASOPHILS % 0.4 % (0.0-2.0); EOSINOPHILS # 0.4 10^3/ul (0.0-0.5); HEMATOCRIT 48.3 % (42.0-52.0); HEMOGLOBIN 16.1 g/dl (14.0-18.0); LYMPHOCYTES # 1.3 10^3/ul (0.8-2.9); LYMPHOCYTES % 18.9 % (15.0-51.0); MEAN CORPUSCULAR HEMOGLOBIN 30.7 pg (29.0-33.0); MEAN CORPUSCULAR HGB CONC 33.3 g/dl (32.0-37.0); MONOCYTE # 0.5 10^3/ul (0.3-0.9); MONOCYTES % 6.4 % (0.0-11.0); NEUTROPHIL # 4.9 10^3/ul (1.6-7.5); PLATELET COUNT 144 10^3/UL (140-415); RED BLOOD COUNT 5.25 10^6/ul (4.70-6.10); RED CELL DISTRIBUTION WIDTH 14.9 % (11.5-14.5); WHITE BLOOD COUNT 7.1 10^3/ul (4.8-10.8)
[2016-06-16 07:57] LABS: ALBUMIN 3.3 g/dl (3.3-4.9); POTASSIUM 4.6 mmol/L (3.5-5.1)
[2016-06-16 07:59] LABS: BILIRUBIN,INDIRECT 0.9 mg/dl (0-1.1); BILIRUBIN,TOTAL 0.9 mg/dl (0.2-1.3); CREATININE 0.79 mg/dl (0.61-1.24)
[2016-06-16 08:00] LABS: ALBUMIN/GLOBULIN RATIO 1.06; CALCIUM 8.8 mg/dl (8.4-10.2); PHOSPHORUS 3.5 mg/dl (2.5-4.9); TOTAL PROTEIN 6.4 g/dl (6.1-8.1)
[2016-06-16 08:01] LABS: MAGNESIUM 1.9 mg/dl (1.7-2.5)
[2016-06-16] MEDS: ASPIRIN 81 MG TAB PO SCH (08:56)
--- NOTE | 2016-06-16 08:56 | CONS ---
Date/Time of Note Date/Time of Note DATE: 06/16/16 TIME: 08:53 Assessment/Plan Assessment/Plan Chief Complaint/Hosp Course Acute left MCA stroke - likely cardioembolic Typical atrial flutter/afib, onset >48 hours at presentation - rates mostly controlled but has been refusing meds at times. Now compliant Acute on chronic systolic heart failure - euvolemic Ischemic cardiomyopathy - LVEF<25%, no reversible defects on Lexiscan SPECT April 2015 Chronic left bundle branch block Coronary artery disease, history of coronary stenting - details unknown Hypertension Dyslipidemia Transaminitis: improved -continue Lasix 40mg PO daily -would consider holding IVF as receiving diuretics -digoxin 0.125mg PO daily due to advanced age, check levels tomorrow if family agreeable -bisoprolol 5mg BID as BP tolerates -continue aspirin 81mg daily -off anticoagulation due to risk for hemorrhagic conversion, resume when stable after acute stroke (>2 weeks per neurology) -LFTs improved, consider starting statin Problems: Consultation Date/Type/Reason Admit Date/Time Jun 07, 2016 at 21:23 Type of Consultation: Cardiology 24 HR Interval Summary Free Text/Dictation No o/n events. Bisoprolol held last night due to SBP 90s. HR mostly controlled. Family would like to take him to rehab. He is eating pureed foods at bedside. Exam/Review of Systems Vital Signs Vitals Vital Signs Date Time Temp Pulse Resp B/P Pulse Ox O2 Delivery O2 Flow Rate FiO2 06/16/16 07:31 98.7 99 18 121/75 96 06/16/16 05:56 Nasal Cannula 2.0 Intake and Output 06/15/16 06/15/16 06/16/16 15:00 23:00 07:00 Intake Total 900 ml 900 ml Output Total 800 ml 400 ml Balance 100 ml 500 ml Exam Constitutional: alert Neck: No jvd Respiratory: clear to auscultation Cardiovascular: edema (trace-1+), systolic murmur (2/6 HSM), No regular rate and rhythm (IRIR) Gastrointestinal: non-tender, soft Results Result Diagram: 06/16/16 0639 06/16/16 0639 Results 24 hrs Laboratory Tests Test 06/16/16 06:39 Alanine Aminotransferase (ALT/SGPT) 100 H Albumin 3.3 Albumin/Globulin Ratio 1.06 Alkaline Phosphatase 141 H Anion Gap 16 Aspartate Amino Transf (AST/SGOT) 45 Basophils # 0.0 Basophils % 0.4 Blood Urea Nitrogen 21 H Calcium Level 8.8 Carbon Dioxide Level 24 Chloride Level 103 Creatinine 0.79 Direct Bilirubin 0.00 Eosinophils # 0.4 Eosinophils % 5.0 Globulin 3.10 Glucose Level 89 Hematocrit 48.3 Hemoglobin 16.1 Indirect Bilirubin 0.9 Lymphocytes # 1.3 Lymphocytes % 18.9 Magnesium Level 1.9 Mean Corpuscular Hemoglobin 30.7 Mean Corpuscular Hemoglobin Concent 33.3 Mean Corpuscular Volume 92.0 Mean Platelet Volume 13.0 H Monocytes # 0.5 Monocytes % 6.4 Neutrophils # 4.9 Neutrophils % 69.0 Nucleated Red Blood Cells # 0.0 Nucleated Red Blood Cells % 0.0 Phosphorus Level 3.5 Platelet Count 144 Potassium Level 4.6 Red Blood Count 5.25 Red Cell Distribution Width 14.9 H Sodium Level 138 Total Bilirubin 0.9 Total Protein 6.4 White Blood Count 7.1 Medications Medications Current Medications Aspirin (Aspirin) 81 mg DAILY PO Last administered on 06/15/16 08:48; Admin Dose 81 MG; Start 06/08/16 at 09:00 Docusate Sodium (Colace) 100 mg BID PO Last administered on 06/15/16 21:25; Admin Dose 100 MG; Start 06/08/16 at 21:00 Senna (Senokot) 1 tab BID PO Last administered on 06/15/16 21:25; Admin Dose 1 TAB; Start 06/08/16 at 21:00 Hydralazine HCl (Apresoline) 10 mg Q6H PRN IV SBP > 220; Start 06/09/16 at 20: 00 Enoxaparin Sodium 40 mg 40 mg QPM SC Last administered on 06/15/16 21:44; Admin Dose 40 MG; Start 06/11/16 at 17:45 Potassium Chloride/Dextrose/ Sod Cl (D5-1/2ns + KCl 20 Meq) 1,000 ml @ 50 mls/ hr Q20H IV Last administered on 06/15/16 18:25; Admin Dose 50 MLS/HR; Start at 19:30 Diltiazem HCl (Cardizem) 60 mg Q6 PRN PO HR>120 Last administered on 06/13/16 09:08; Admin Dose 60 MG; Start 06/12/16 at 18:00 Furosemide (Lasix) 40 mg DAILY PO Last administered on 06/15/16 08:49; Admin Dose 40 MG; Start 06/13/16 at 09:00 Digoxin (Digoxin) 0.125 mg DAILY@13 PO Last administered on 06/15/16 13:07; Admin Dose 0.125 MG; Start 06/15/16 at 13:00 Bisoprolol Fumarate (Zebeta) 5 mg BID PO ; Start 06/15/16 at 21:00 KIKI BOWEN Jun 16, 2016 08:56
[2016-06-16] MEDS: BISOPROLOL 5 MG TAB PO SCH ×2 (08:59→21:48)
[2016-06-16] MEDS: DOCUSATE SODIUM 100 MG CAP PO SCH ×2 (09:00→21:47)
[2016-06-16] MEDS: SENNA TAB PO SCH ×2 (09:00→21:47)
[2016-06-16] MEDS: FUROSEMIDE 40 MG TAB PO SCH (09:03)
[2016-06-16 11:18] VITALS: BP 109/72; RESP 18
[2016-06-16] MEDS: DIGOXIN 0.25 MG TAB PO SCH (12:41)
--- NOTE | 2016-06-16 14:27 | CONS ---
Date/Time of Note Date/Time of Note DATE: 06/16/16 TIME: 14:23 Consult Date/Type/Reason Admit Date/Time Jun 07, 2016 at 21:23 Type of Consultation: neurology Subjective no acute events Objective Vital Signs Date Time Temp Pulse Resp B/P Pulse Ox O2 Delivery O2 Flow Rate FiO2 06/16/16 13:26 88 20 97 Nasal Cannula 2.0 06/16/16 11:18 98.3 109/72 Intake and Output 06/15/16 06/15/16 06/16/16 14:59 22:59 06:59 Intake Total 900 ml 900 ml Output Total 800 ml 400 ml Balance 100 ml 500 ml Results/Medications Result Diagram: 06/16/16 0639 06/16/16 0639 Results 24 hrs Laboratory Tests Test 06/16/16 06:39 Alanine Aminotransferase (ALT/SGPT) 100 H Albumin 3.3 Albumin/Globulin Ratio 1.06 Alkaline Phosphatase 141 H Anion Gap 16 Aspartate Amino Transf (AST/SGOT) 45 Basophils # 0.0 Basophils % 0.4 Blood Urea Nitrogen 21 H Calcium Level 8.8 Carbon Dioxide Level 24 Chloride Level 103 Creatinine 0.79 Direct Bilirubin 0.00 Eosinophils # 0.4 Eosinophils % 5.0 Globulin 3.10 Glucose Level 89 Hematocrit 48.3 Hemoglobin 16.1 Indirect Bilirubin 0.9 Lymphocytes # 1.3 Lymphocytes % 18.9 Magnesium Level 1.9 Mean Corpuscular Hemoglobin 30.7 Mean Corpuscular Hemoglobin Concent 33.3 Mean Corpuscular Volume 92.0 Mean Platelet Volume 13.0 H Monocytes # 0.5 Monocytes % 6.4 Neutrophils # 4.9 Neutrophils % 69.0 Nucleated Red Blood Cells # 0.0 Nucleated Red Blood Cells % 0.0 Phosphorus Level 3.5 Platelet Count 144 Potassium Level 4.6 Red Blood Count 5.25 Red Cell Distribution Width 14.9 H Sodium Level 138 Total Bilirubin 0.9 Total Protein 6.4 White Blood Count 7.1 Medications Current Medications Aspirin (Aspirin) 81 mg DAILY PO Last administered on 06/16/16 08:56; Admin Dose 81 MG; Start 06/08/16 at 09:00 Docusate Sodium (Colace) 100 mg BID PO Last administered on 06/15/16 21:25; Admin Dose 100 MG; Start 06/08/16 at 21:00 Senna (Senokot) 1 tab BID PO Last administered on 06/15/16 21:25; Admin Dose 1 TAB; Start 06/08/16 at 21:00 Hydralazine HCl (Apresoline) 10 mg Q6H PRN IV SBP > 220; Start 06/09/16 at 20: 00 Enoxaparin Sodium 40 mg 40 mg QPM SC Last administered on 06/15/16 21:44; Admin Dose 40 MG; Start 06/11/16 at 17:45 Potassium Chloride/Dextrose/ Sod Cl (D5-1/2ns + KCl 20 Meq) 1,000 ml @ 50 mls/ hr Q20H IV Last administered on 06/15/16 18:25; Admin Dose 50 MLS/HR; Start at 19:30 Diltiazem HCl (Cardizem) 60 mg Q6 PRN PO HR>120 Last administered on 06/13/16 09:08; Admin Dose 60 MG; Start 06/12/16 at 18:00 Furosemide (Lasix) 40 mg DAILY PO Last administered on 06/16/16 09:03; Admin Dose 40 MG; Start 06/13/16 at 09:00 Digoxin (Digoxin) 0.125 mg DAILY@13 PO Last administered on 06/16/16 12:41; Admin Dose 0.125 MG; Start 06/15/16 at 13:00 Bisoprolol Fumarate (Zebeta) 5 mg BID PO Last administered on 06/16/16 08:59; Admin Dose 5 MG; Start 06/15/16 at 21:00 Assessment/Plan Chief Complaint/Hosp Course PHYSICAL EXAMINATION: GENERAL: Not in acute distress, lying in bed. HEENT: Normocephalic, atraumatic head. NECK: No carotid bruits. No thyromegaly. LUNGS: Clear to auscultation bilaterally. CARDIAC: Normal ABDOMEN: Soft. Present bowel sounds. EXTREMITIES: No cyanosis, clubbing, or edema. NEUROLOGIC: He is awake. Follows commands , not verbal, mumbles No response to visual threat from the right. Pupils reactive from 3 to 2 mm bilaterally. Extraocular movements intact. Symmetrical face. Corneal reflexes present bilaterally. Gag is present. Motor strength examination shows RUE, 3/5. The patient moves right lower extremity to noxious stimuli at least 3 or 3+/5 and moves left side normally spontaneously and to noxious stimuli as well. Deep tendon reflexes 2+ upper extremities and knees, absent ankle jerks, upgoing toe on the right and equivocal on the left. Coordination seems to be preserved when he is reaching for objects with his left hand. IMPRESSION: Acute ischemic stroke in the left middle cerebral artery territory , likely cardioembolic, given severe cardiomyopathy and global hypokinesis and atrial flutter. Continue current treatment. Keep normotensive, euglycemic. Continue aspirin. I would not use anticoagulation currently because of risk of hemorrhagic transformation. Will consider in 5-7 days. I would not use statin for currently because of transaminitis, but if liver function improves, will consider. Keep patient euglycemic. Continue current treatment otherwise. Speech therapy, swallow evaluation, and physical therapy. consider rehab. Problems: DAVID ELIZALDE MD Jun 16, 2016 14:27
[2016-06-16] MEDS: D5W-0.45 NACL + KCL 20 MEQ 1,000 ML IV SCH (14:52)
[2016-06-16 15:56] VITALS: BP 136/75; RESP 18
--- NOTE | 2016-06-16 16:04 | PN ---
Date/Time of Note Date/Time of Note DATE: 06/16/16 TIME: 15:59 Assessment/Plan VTE Prophylaxis VTE Prophylaxis Intervention: contraindicated (Recent stroke) Lines/Catheters IV Catheter Type (from Nrs): Saline Lock Urinary Cath still in place: No Assessment/Plan Chief Complaint/Hosp Course Subjective: More appropriate today. Follows one-step commands. Still aphasic. Actually passed a swallow eval and has been tolerating 100% of pured diet. Updated family. Agreeable to DNR. [employer] Paste Mixing Supervisor was Alex at bedside. Some left hand pain. Objective: Fluctuating BP. Bundle branch block and A. fib remains. Physical exam -Poor cooperation due to stroke No pallor droop. Eom appear intact. S1-S2 irregular, no murmur rub gallop Clear bilaterally Bs+ nontender nondistended; no rigidity no rebound guarding Ext: No edema. Some left hand tenderness. No erythema or joint effusion. Neuro: Rt-sided hemiparesis noted. Upper greater than lower. Aphasic remains. A/P 1) Ac decompensated systolic CHF; stable, cont medical mngmnt 2) Ac Ischemic Lt mca stroke. high hemorrhagic risk; cont pt/ot/st. Will start Coumadin in about 5-7 days. 3) A Fib; no coumadin/lovenox for ~2wks. +/- cardiac eval if functional status improves 4) Dysphagia; st eval/ calorie count. Advance to pured 5) Aphasia 6) Ftt; snf vs acute rehab, to continue PT OT ST 7) Ho Ca Prostate 8) Tongue cancer? ENT once stable 9) Ischemic cardiomyopathy; EF=25%; medical mngmnt; doubt cath/cabg candidate. 10) Likely CAD; agree w palliative/ supportive care 11) LBBB 12) MR+ 13) Pul Htn? 14) Abn Lft's--passive congestion? potential statin soon 15) Htn/ Dyslipidemia 16) Nonadherence 17) Lt hand pain, x-ray soon. Problems: Exam/Review of Systems Vital Signs Vitals Vital Signs Date Time Temp Pulse Resp B/P Pulse Ox O2 Delivery O2 Flow Rate FiO2 06/16/16 15:56 98.2 77 18 136/75 97 06/16/16 15:50 Nasal Cannula 2.0 Intake and Output 06/15/16 06/15/16 06/16/16 15:00 23:00 07:00 Intake Total 900 ml 900 ml Output Total 800 ml 400 ml Balance 100 ml 500 ml Results Result Diagram: 06/16/16 0639 06/16/16 0639 Results 24 hrs Laboratory Tests Test 06/16/16 06:39 Alanine Aminotransferase (ALT/SGPT) 100 H Albumin 3.3 Albumin/Globulin Ratio 1.06 Alkaline Phosphatase 141 H Anion Gap 16 Aspartate Amino Transf (AST/SGOT) 45 Basophils # 0.0 Basophils % 0.4 Blood Urea Nitrogen 21 H Calcium Level 8.8 Carbon Dioxide Level 24 Chloride Level 103 Creatinine 0.79 Direct Bilirubin 0.00 Eosinophils # 0.4 Eosinophils % 5.0 Globulin 3.10 Glucose Level 89 Hematocrit 48.3 Hemoglobin 16.1 Indirect Bilirubin 0.9 Lymphocytes # 1.3 Lymphocytes % 18.9 Magnesium Level 1.9 Mean Corpuscular Hemoglobin 30.7 Mean Corpuscular Hemoglobin Concent 33.3 Mean Corpuscular Volume 92.0 Mean Platelet Volume 13.0 H Monocytes # 0.5 Monocytes % 6.4 Neutrophils # 4.9 Neutrophils % 69.0 Nucleated Red Blood Cells # 0.0 Nucleated Red Blood Cells % 0.0 Phosphorus Level 3.5 Platelet Count 144 Potassium Level 4.6 Red Blood Count 5.25 Red Cell Distribution Width 14.9 H Sodium Level 138 Total Bilirubin 0.9 Total Protein 6.4 White Blood Count 7.1 Medications Medications Current Medications Aspirin (Aspirin) 81 mg DAILY PO Last administered on 06/16/16 08:56; Admin Dose 81 MG; Start 06/08/16 at 09:00 Docusate Sodium (Colace) 100 mg BID PO Last administered on 06/15/16 21:25; Admin Dose 100 MG; Start 06/08/16 at 21:00 Senna (Senokot) 1 tab BID PO Last administered on 06/15/16 21:25; Admin Dose 1 TAB; Start 06/08/16 at 21:00 Hydralazine HCl (Apresoline) 10 mg Q6H PRN IV SBP > 220; Start 06/09/16 at 20: 00 Enoxaparin Sodium 40 mg 40 mg QPM SC Last administered on 06/15/16 21:44; Admin Dose 40 MG; Start 06/11/16 at 17:45 Potassium Chloride/Dextrose/ Sod Cl (D5-1/2ns + KCl 20 Meq) 1,000 ml @ 50 mls/ hr Q20H IV Last administered on 06/16/16 14:52; Admin Dose 50 MLS/HR; Start at 19:30 Diltiazem HCl (Cardizem) 60 mg Q6 PRN PO HR>120 Last administered on 06/13/16 09:08; Admin Dose 60 MG; Start 06/12/16 at 18:00 Furosemide (Lasix) 40 mg DAILY PO Last administered on 06/16/16 09:03; Admin Dose 40 MG; Start 06/13/16 at 09:00 Digoxin (Digoxin) 0.125 mg DAILY@13 PO Last administered on 06/16/16 12:41; Admin Dose 0.125 MG; Start 06/15/16 at 13:00 Bisoprolol Fumarate (Zebeta) 5 mg BID PO Last administered on 06/16/16 08:59; Admin Dose 5 MG; Start 06/15/16 at 21:00 VASQUEZ ROBLEDO MD Jun 16, 2016 16:04
[2016-06-16] MEDS ORDERED: ONDANSETRON 4 MG INJ IV PRN (16:30)
[2016-06-16] MEDS ORDERED: BISACODYL 10 MG SUPP PR PRN (16:30)
--- NOTE | 2016-06-16 16:33 | PDOCDIS ---
Discharge Instructions DIAGNOSIS Discharge Diagnosis: Rt stroke; cardiomyopathy CONDITION Patient Condition: Stable HOME CARE INSTRUCTIONS: Special Diet: CARDIAC, pureed nectar thick liquids ACTIVITY: Activity Restrictions: Slowly Increase Activity Do not Drive FOLLOW UP/APPOINTMENTS Appointments Appt Cardiology -1-2months- PCP- 1 wk post discharge. VASQUEZ ROBLEDO MD Jun 16, 2016 16:33
[2016-06-16] MEDS ORDERED: BISO5TAB21 PO (16:35)
--- NOTE | 2016-06-16 18:25 | RADRPT ---
PROCEDURE: XR Left hand CLINICAL INDICATION: Left hand pain. TECHNIQUE: AP, oblique and lateral views of the left hand were obtained. COMPARISON: No prior studies are available for comparison. FINDINGS: The bones of the hand appear intact, with no evidence of fracture, dislocation, or subluxation. The joint spaces are preserved. Juxta-articular demineralization is seen. Mild joint compartment narrow ing in the interphalangeal joints of the fingers suggesting a degree of osteoarthritis. No significa nt soft tissue swelling is seen. IMPRESSION: Demineralization, without acute fracture. RPTAT: [facility] Physician Sheryl Date Time Electronically viewed and signed by Physician Sheryl on 06/16/2016 18:25 RS/
[2016-06-16 20:13] VITALS: BP 125/77; RESP 18
[2016-06-16] MEDS: ENOXAPARIN 40 MG/0.4 ML SYG SC SCH (22:36)
[2016-06-17] MEDS: LEVALBUTEROL (NEB) 1.25 MG/0.5 ML AMP HHN SCH ×3 (00:16→16:55)
[2016-06-17 00:24] VITALS: BP 118/85; RESP 20
[2016-06-17 04:10] VITALS: BP 106/82; RESP 18
--- NOTE | 2016-06-17 07:12 | DS ---
DATE OF ADMISSION: 06/07/2016 DATE OF DISCHARGE: 06/16/2016 PRIMARY CARE PHYSICIAN: Unknown. TRANSPORTATION JOB TITLES: Dr. David Morgan, Dr. Lamar Ruth DIAGNOSES ON ADMISSION: 1. Congestive heart failure. 2. Ischemic stroke. 3. Failure to thrive. DIAGNOSES ON DISCHARGE: 1. Acute systolic congestive heart failure. 2. Acute ischemic stroke, right-side. 3. New onset atrial fibrillation. 4. Failure to thrive. HOSPITAL COURSE: This is an unfortunate 80-year-old gentleman who was admitted from home with signs and symptoms of CHF. He was seen originally in [facility] ER and transferred here for continuity. The patient was up being treated with CHF. He was found to have an EF of 25. He was being optimiz ed medically when he had another problem emerge. The patient developed left-sided deficits and was found to have an ischemic stroke. Due to the larg e size of the stroke. There was high and hemorrhagic risk. The patient was optimized medically wit h PT, OT, ST, aspirin, but remains aphasic. He is moving his right side more today than he was amita ier this week. He will be a candidate for Coumadin maybe about 5 to 7 days. Should there be no fur ther issues/progression of disease. Daughter was updated at bedside and with the assistance of Kelsey brown our nurse, the patient and daughter have agreed to change his code status to DNR. The patient is awake, alert, follows 1-step commands, but remains aphasic. He has a high risk of recurrent stroke s, and I agree with the daughter's DNR recommendations. In terms of the stroke, we will continue PT , OT, ST at SNF, fall precautions, Lovenox for DVT prophylaxis. He has been advanced to pureed nect ar-thick diet. In terms of his CHF it is systolic as he is not a smoker. Ejection fraction of 25. Likely underlyi ng coronary artery disease, maybe had a silent event in the last 1 or 2 months. At some point ideal ly a cardiac stress test or a catheterization will be an option should his functional status improve . Again, we will optimize medically with Coumadin and potentially statin once his LFTs improved. Additionally, had some left hand pain and x-ray is pending. Aphasia due to stroke. Atrial fibrillation. Reevaluate and start Coumadin in about 5 to 7 days should there be no progress ion of his stroke and he has further improvement. Dysphagia, stable. Continue ST care and diet. History of prostate cancer. There is an abnormality on his tongue, he will need to visit ENT down the line. May be amenable to an eval at his SNF. Obviously not a candidate for surgery or chemotherapy radiation, etc. at this t monserrat. Left bundle branch block. Mitral regurgitation. Possible pulmonary hypertension which would be a c oncern due to LV dysfunction. Abnormal LFTs, possibly due to congestive heart failure ____ congestion. The numbers are trending d ownward and towards normal. He will probably be a potential candidate for a statin within maybe 1 o r 2 weeks. The stroke, most probably cardioembolic due to his heart disease. The patient has actually passed the swallow eval at bedside and was tolerating 100% of his pureed ne ctar-thick diet today. DISCHARGE PLAN: The patient will be discharged to a senior living facility. DIET: [place]-thick pureed diet with medications and maybe consistent with cardiac restrictions. ACTIVITY: As tolerated. No driving. PT, OT, ST evaluation and treat. ALLERGIES: NO KNOWN DRUG ALLERGIES. BARRIERS TO DISCHARGE: Placement. PENDING TESTS: None. FUNCTIONAL STATUS: The patient is aphasic, daughter agrees to the plan of care. DURABLE MEDICAL EQUIPMENT: Pending. He has a condom catheter this time. CONDITION: Fair and stable. REASON FOR ADMISSION: CHF. LABORATORY DATA: Echo, EF of 15%, severe global left ventricular dysfunction, mild concentric LVH, moderate left atrial enlargement, mild to moderate mitral regurgitation, mild TR. Brain MRI read as large area of acute infarct, left frontal lobe, involving the left frontal operculum and anterior i nsular cortex, left MCA distribution, mild generalized volume loss. MRA was noted to have a short s egment occlusion and superior division of M2. Neck MRA unremarkable. Soft tissue MRI done of the n dominique shows a 1 cm focal area of single abnormality suggestive of an abscess in the left aspect of ora l tongue, raising the possibility of lesion. No abnormal lymphadenopathy. CAT scan of brain done o n admission showing without hemorrhage. Chest x-ray: No acute process on admission. There is some cardiomegaly, possible congestion. CMP essentially unremarkable. AST and ALT down to 45 and 100, alkaline phosphatase of 141, cholesterol 115, triglycerides 109, LDL 63 at goal, HDL little low at 3 0. A1c 5.3. TSH of 2.7. Troponins negative. DISCHARGE MEDICATIONS: STOPPED MEDICATIONS: Toprol, will switch to bisoprolol. CONTINUED MEDICATIONS: 1. Albuterol as needed. 2. Aspirin 81. 3. Lasix 40. 4. Lisinopril 5. 5. NitroQuick as needed. ALTERED MEDICATIONS: Lipitor 20 daily, maybe restart in about a week with LFTs. NEW MEDICATIONS: 1. Albuterol every 4 hours as needed. 2. Dulcolax every 2 days as needed. 3. Bisoprolol 5 mg b.i.d. 4. Digoxin 0.125 mg daily. 5. Colace 100 twice daily. 6. Lovenox 40 subcutaneous daily. 7. Pepcid 20 at bedtime daily. 8. Senna 1 tablet b.i.d. PENDING TESTS: Final x-ray, left hand. Dictated By: VASQUEZ ROBLEDO MD AC/ESTELLA Conf#: [id number] DID#: [id number] CC: DAVID MORGAN MD; LAMAR RUTH MD;*End*
[2016-06-17 07:45] VITALS: BP 117/88; RESP 20
[2016-06-17 08:04] LABS: ADD SCAN DIFF NO
[2016-06-17 08:10] LABS: BASOPHILS % 0.5 % (0.0-2.0); EOSINOPHILS # 0.4 10^3/ul (0.0-0.5); EOSINOPHILS % 6.3 % (0.0-7.0); HEMATOCRIT 48.2 % (42.0-52.0); HEMOGLOBIN 16.3 g/dl (14.0-18.0); LYMPHOCYTES # 1.2 10^3/ul (0.8-2.9); LYMPHOCYTES % 18.4 % (15.0-51.0); MEAN CORPUSCULAR HEMOGLOBIN 30.8 pg (29.0-33.0); MEAN CORPUSCULAR HGB CONC 33.8 g/dl (32.0-37.0); MEAN CORPUSCULAR VOLUME 91.1 fl (82.0-101.0); MEAN PLATELET VOLUME 13.3 fl (7.4-10.4); MONOCYTE # 0.5 10^3/ul (0.3-0.9); NEUTROPHIL # 4.2 10^3/ul (1.6-7.5); NEUTROPHILS % 66.3 % (39.0-77.0); PLATELET COUNT 149 10^3/UL (140-415); RED BLOOD COUNT 5.29 10^6/ul (4.70-6.10); RED CELL DISTRIBUTION WIDTH 14.9 % (11.5-14.5); WHITE BLOOD COUNT 6.4 10^3/ul (4.8-10.8)
[2016-06-17 08:28] LABS: POTASSIUM 4.2 mmol/L (3.5-5.1)
[2016-06-17 08:31] LABS: CREATININE 0.78 mg/dl (0.61-1.24)
[2016-06-17 08:32] LABS: PHOSPHORUS 3.2 mg/dl (2.5-4.9)
[2016-06-17] MEDS: DOCUSATE SODIUM 100 MG CAP PO SCH ×2 (09:00→20:41)
[2016-06-17] MEDS: FUROSEMIDE 40 MG TAB PO SCH (09:26)
[2016-06-17] MEDS: ASPIRIN 81 MG TAB PO SCH (09:26)
[2016-06-17] MEDS: SENNA TAB PO SCH ×2 (09:26→20:45)
[2016-06-17] MEDS: BISOPROLOL 5 MG TAB PO SCH ×2 (09:27→20:46)
--- NOTE | 2016-06-17 11:53 | PN ---
Date/Time of Note Date/Time of Note DATE: 06/17/16 TIME: 11:38 Assessment/Plan VTE Prophylaxis VTE Prophylaxis Intervention: contraindicated (bleeding risk.) Lines/Catheters IV Catheter Type (from Nrsg): Peripheral IV Urinary Cath still in place: No Assessment/Plan Chief Complaint/Hosp Course Subjective: 06/16: More appropriate today. Follows one-step commands. Still aphasic. Actually passed a swallow eval and has been tolerating 100% of pured diet. Updated family. Agreeable to DNR. Proofreader was Qiana at bedside. Some lt hand pain. 06/17: better; ambulating, frustrated/ wants to go home. still waiting for bed availability at [facility]; in the interim, additionally will transfer to med surg room here at the hospital, once available. Objective: vss. Bundle branch block and A. fib stable rate remains. PE No pallor droop. Eom appear intact. S1-S2 irreg, no m/r/g Clear bilat Bs+ nt nd; no r/r/g Ext: No edema. Less lt hand tenderness. No erythema or joint effusion. Neuro: Rt-sided hemiparesis noted. Upper greater than lower. Aphasic remains. A/P 1) Ac decompensated systolic CHF; now compensated/stable, cont lasix/bisoprolol. 2) Ac Ischemic Lt mca stroke. high hemorrhagic risk; cont pt/ot/st. May start Coumadin in about 5-7 days. 3) A Fib; no coumadin/lovenox for 5-7 days. +/- cardiac eval/ ablation ~2months if functional status improves 4) Dysphagia; st eval/ calorie count done. Advance to pured 5) Aphasia 6) Ftt; snf vs acute rehab, to cont PT/OT/ST 7) Ho Ca Prostate 8) Tongue cancer? ENT outpatient referral once stable from stroke standpoint. 9) Ischemic cardiomyopathy; EF=25%; medical mngmnt; not a cath/cabg candidate. 10) Likely CAD; agree w supportive care. DNR established- see POLST. 11) LBBB 12) MR+ 13) Pul Htn? 14) Abn Lft's--passive congestion? Improving. potential statin soon 15) Htn/ Dyslipidemia 16) Nonadherence 17) Lt hand pain, x-ray- negative. 18) Frustrated; ambulate ceasar. FYI- To [facility]: The A flutter has been addressed. stable, on present med's (po bisoprolol). does not need further telemetry monitoring. The CHF is stable/not active, on med's (po lasix). doesn't need any further procedures. The plan of care has been discussed with cardiology & his neurologist. Both agree that he presently is stable for discharge, for his need of THERAPY-pt/ot/st. Problems: Exam/Review of Systems Vital Signs Vitals Vital Signs Date Time Temp Pulse Resp B/P Pulse Ox O2 Delivery O2 Flow Rate FiO2 06/17/16 09:40 88 18 94 21 06/17/16 07:45 97.7 117/88 06/17/16 00:26 Nasal Cannula 06/16/16 20:11 3.0 Intake and Output 06/16/16 06/16/16 06/17/16 15:00 23:00 07:00 Intake Total 400 ml 1050 ml 500 ml Output Total 500 ml 400 ml Balance 400 ml 550 ml 100 ml Results Result Diagram: 06/17/1672106/17/16721 Results 24 hrs Laboratory Tests Test 06/17/16 07:22 White Blood Count 6.4 Red Blood Count 5.29 Hemoglobin 16.3 Hematocrit 48.2 Mean Corpuscular Volume 91.1 Mean Corpuscular Hemoglobin 30.8 Mean Corpuscular Hemoglobin Concent 33.8 Red Cell Distribution Width 14.9 H Platelet Count 149 Mean Platelet Volume 13.3 H Neutrophils % 66.3 Lymphocytes % 18.4 Monocytes % 8.0 Eosinophils % 6.3 Basophils % 0.5 Nucleated Red Blood Cells % 0.0 Neutrophils # 4.2 Lymphocytes # 1.2 Monocytes # 0.5 Eosinophils # 0.4 Basophils # 0.0 Nucleated Red Blood Cells # 0.0 Sodium Level 138 Potassium Level 4.2 Chloride Level 102 Carbon Dioxide Level 25 Anion Gap 15 Blood Urea Nitrogen 22 H Creatinine 0.78 Glucose Level 93 Calcium Level 9.0 Phosphorus Level 3.2 Magnesium Level 2.0 Digoxin Level 0.6 L Medications Medications Current Medications Aspirin (Aspirin) 81 mg DAILY PO Last administered on 06/17/16t 09:26; Admin Dose 81 MG; Start 06/08/16 at 09:00 Docusate Sodium (Colace) 100 mg BID PO Last administered on 06/16/16 21:47; Admin Dose 100 MG; Start 06/08/16 at 21:00 Senna (Senokot) 1 tab BID PO Last administered on 06/17/16 09:26; Admin Dose 1 TAB; Start 06/08/16 at 21:00 Hydralazine HCl (Apresoline) 10 mg Q6H PRN IV SBP > 220; Start 06/09/16 at 20: 00 Enoxaparin Sodium (Lovenox) 40 mg QPM SC Last administered on 06/16/16 22:36; Admin Dose 40 MG; Start 06/11/16 at 17:45 Diltiazem HCl (Cardizem) 60 mg Q6 PRN PO HR>120 Last administered on 06/13/16 09:08; Admin Dose 60 MG; Start 06/12/16 at 18:00 Furosemide (Lasix) 40 mg DAILY PO Last administered on 06/17/16 09:26; Admin Dose 40 MG; Start 06/13/16 at 09:00 Digoxin (Digoxin) 0.125 mg DAILY@13 PO Last administered on 06/16/16 12:41; Admin Dose 0.125 MG; Start 06/15/16 at 13:00 Bisoprolol Fumarate (Zebeta) 5 mg BID PO Last administered on 06/17/16 09:27; Admin Dose 5 MG; Start 06/15/16 at 21:00 Famotidine (Pepcid) 20 mg HS PO ; Start 06/17/16 at 21:00 Ondansetron HCl (Zofran Inj) 4 mg Q4H PRN IV NAUSEA AND/OR VOMITING; Start at 16:30 Bisacodyl (Dulcolax Supp) 10 mg Q48H PRN MA CONSTIPATION; Start 06/16/16 at 16: 30 VASQUEZ ROBLEDO MD Jun 17, 2016 11:53
[2016-06-17 12:01] VITALS: BP 106/64; RESP 20
[2016-06-17] MEDS: DIGOXIN 0.25 MG TAB PO SCH (14:13)
[2016-06-17 15:35] VITALS: BP 114/84; RESP 20
--- NOTE | 2016-06-17 15:46 | CONS ---
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 Management per neurology. Has residual right hemiparesis and aphasia Typical atrial flutter/afib, onset >48 hours at presentation. Rates are now well controlled on current medical regimen. CHADSVASC is 6 and should be anticoagulated. Due to recent stroke however neurology would like to wait 2 weeks post stroke. When cleared by neurology, pt should be started on either coumadin or Xarelto or Eliquis. Acute on chronic systolic heart failure - EF is <25%. Euvolemic on exam. Continue lasix to keep even. Ischemic cardiomyopathy - LVEF<25%, no reversible defects on Lexiscan SPECT April 2015. Would benefit from outpt eval for cardiac cath at some point. Also will need evaluation for ICD after cardiac cath as no improvement in EF since 2016. 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 No chest pain or SOB. Pt is awaiting transfer to rehab center. Exam/Review of Systems Vital Signs Vitals Vital Signs Date Time Temp Pulse Resp B/P Pulse Ox O2 Delivery O2 Flow Rate FiO2 06/17/16 12:01 97.5 61 20 106/64 96 06/17/16 09:40 21 06/17/16 07:35 Nasal Cannula 3.0 Intake and Output 06/16/16 06/16/16 06/17/16 15:00 23:00 07:00 Intake Total 400 ml 1050 ml 500 ml Output Total 500 ml 400 ml Balance 400 ml 550 ml 100 ml Exam Constitutional: alert, non-verbal Head: atraumatic, normocephalic Eyes: nl conjunctiva ENMT: nl external ears & nose Neck: No jvd Respiratory: clear to auscultation, No crackles/rales, No wheezing Cardiovascular: systolic murmur (2/6 HSM), No edema, No regular rate and rhythm (IRIR) Gastrointestinal: non-tender, soft Musculoskeletal: nl extremities to inspection Neurological: No nl speech Results Result Diagram: 06/17/1672106/17/16721 Results 24 hrs Laboratory Tests Test 06/17/16 07:22 White Blood Count 6.4 Red Blood Count 5.29 Hemoglobin 16.3 Hematocrit 48.2 Mean Corpuscular Volume 91.1 Mean Corpuscular Hemoglobin 30.8 Mean Corpuscular Hemoglobin Concent 33.8 Red Cell Distribution Width 14.9 H Platelet Count 149 Mean Platelet Volume 13.3 H Neutrophils % 66.3 Lymphocytes % 18.4 Monocytes % 8.0 Eosinophils % 6.3 Basophils % 0.5 Nucleated Red Blood Cells % 0.0 Neutrophils # 4.2 Lymphocytes # 1.2 Monocytes # 0.5 Eosinophils # 0.4 Basophils # 0.0 Nucleated Red Blood Cells # 0.0 Sodium Level 138 Potassium Level 4.2 Chloride Level 102 Carbon Dioxide Level 25 Anion Gap 15 Blood Urea Nitrogen 22 H Creatinine 0.78 Glucose Level 93 Calcium Level 9.0 Phosphorus Level 3.2 Magnesium Level 2.0 Digoxin Level 0.6 L Medications Medications Current Medications Aspirin (Aspirin) 81 mg DAILY PO Last administered on 06/17/16 09:26; Admin Dose 81 MG; Start 06/08/16 at 09:00 Docusate Sodium (Colace) 100 mg BID PO Last administered on 06/16/16 21:47; Admin Dose 100 MG; Start 06/08/16 at 21:00 Senna (Senokot) 1 tab BID PO Last administered on 06/17/16 09:26; Admin Dose 1 TAB; Start 06/08/16 at 21:00 Hydralazine HCl (Apresoline) 10 mg Q6H PRN IV SBP > 220; Start 06/09/16 at 20: 00 Enoxaparin Sodium (Lovenox) 40 mg QPM SC Last administered on 06/16/16 22:36; Admin Dose 40 MG; Start 06/11/16 at 17:45 Diltiazem HCl (Cardizem) 60 mg Q6 PRN PO HR>120 Last administered on 06/13/16 09:08; Admin Dose 60 MG; Start 06/12/16 at 18:00 Furosemide (Lasix) 40 mg DAILY PO Last administered on 06/17/16 09:26; Admin Dose 40 MG; Start 06/13/16 at 09:00 Digoxin (Digoxin) 0.125 mg DAILY@13 PO Last administered on 06/17/16 14:13; Admin Dose 0.125 MG; Start 06/15/16 at 13:00 Bisoprolol Fumarate (Zebeta) 5 mg BID PO Last administered on 06/17/16 09:27; Admin Dose 5 MG; Start 06/15/16 at 21:00 Famotidine (Pepcid) 20 mg HS PO ; Start 06/17/16 at 21:00 Ondansetron HCl (Zofran Inj) 4 mg Q4H PRN IV NAUSEA AND/OR VOMITING; Start at 16:30 Bisacodyl (Dulcolax Supp) 10 mg Q48H PRN [place] CONSTIPATION; Start 06/16/16 at 16: 30 KIKI BOWEN Jun 17, 2016 15:46
[2016-06-17 19:50] VITALS: BP 113/80; RESP 20
[2016-06-17] MEDS: ENOXAPARIN 40 MG/0.4 ML SYG SC SCH (20:48)
[2016-06-17] MEDS ORDERED: BISOPROLOL 5 MG TAB PO SCH (21:00)
[2016-06-17] MEDS ORDERED: FAMOTIDINE 20 MG TAB PO SCH (21:00)
[2016-06-17] MEDS ORDERED: ATORVASTATIN 20 MG TAB PO SCH (21:00)
[2016-06-18] MEDS: LEVALBUTEROL (NEB) 1.25 MG/0.5 ML AMP HHN SCH ×2 (00:07→08:00)
[2016-06-18 08:10] VITALS: BP 132/77; RESP 22
[2016-06-18] MEDS: ASPIRIN 81 MG TAB PO SCH (08:42)
[2016-06-18] MEDS: FUROSEMIDE 40 MG TAB PO SCH (08:43)
[2016-06-18] MEDS: BISOPROLOL 5 MG TAB PO SCH (08:43)
[2016-06-18] MEDS: SENNA TAB PO SCH (08:43)
[2016-06-18] MEDS: DOCUSATE SODIUM 100 MG CAP PO SCH (08:44)
[2016-06-18] MEDS: DIGOXIN 0.25 MG TAB PO SCH (13:27)
--- NOTE | 2016-06-18 14:05 | PN ---
Date/Time of Note Date/Time of Note DATE: 06/18/16 TIME: 14:02 Assessment/Plan VTE Prophylaxis VTE Prophylaxis Intervention: contraindicated Lines/Catheters IV Catheter Type (from Nrsg): Peripheral IV Urinary Cath still in place: No Assessment/Plan Chief Complaint/Hosp Course Subjective: 06/16: More appropriate today. Follows one-step commands. Still aphasic. Actually passed a swallow eval and has been tolerating 100% of pured diet. Updated family. Agreeable to DNR. Data Migration Lead was Qiana at bedside. Some lt hand pain. 06/17: better; ambulating, frustrated/ wants to go home. still waiting for bed availability at [facility]; in the interim, additionally will transfer to med surg room here at the hospital, once available. 06/18: No events. Pending transfer Objective: vss. Bbb A. fib stable rate remains. PE No pallor droop. Eom appear intact. S1-S2 irreg, no m/r/g Clear bilat Bs+ nt nd; no r/r/g Ext: No edema. Less lt hand tenderness. No erythema or joint effusion. Neuro: Rt-sided hemiparesis noted. Upper greater than lower. Aphasia remains. A/P 1) Ac decompensated systolic CHF; now compensated/stable, cont lasix/bisoprolol. 2) Ac Ischemic Lt mca stroke. high hemorrhagic risk; cont pt/ot/st. May start Coumadin in about 5-7 days. 3) A Fib; no coumadin/lovenox for 5-7 days. +/- cardiac eval/ ablation ~2months if functional status improves 4) Dysphagia; st eval/ calorie count done. Advance to pured 5) Aphasia 6) Ftt; snf vs acute rehab, to cont PT/OT/ST 7) Ho Ca Prostate 8) Tongue cancer? ENT outpatient referral once stable from stroke standpoint. 9) Ischemic cardiomyopathy; EF=25%; medical mngmnt; not a cath/cabg candidate. 10) Likely CAD; agree w supportive care. DNR established- see POLST. 11) LBBB 12) MR+ 13) Pul Htn? 14) Abn Lft's--passive congestion? Improving. potential statin soon 15) Htn/ Dyslipidemia 16) Nonadherence 17) Lt hand pain, x-ray- negative. 18) Frustrated; ambulate ceasar. FYI- To [facility]: The A flutter has been addressed. stable, on present med's (po bisoprolol). does not need further telemetry monitoring. The CHF is stable/not active, on med's (po lasix). doesn't need any further procedures. The plan of care has been discussed with cardiology & his neurologist. Both agree that he presently is stable for discharge, for his need of THERAPY-pt/ot/st. Problems: Exam/Review of Systems Vital Signs Vitals Vital Signs Date Time Temp Pulse Resp B/P Pulse Ox O2 Delivery O2 Flow Rate FiO2 06/18/16 08:10 97.4 81 22 132/77 96 06/18/16 00:07 21 06/17/16 07:35 Nasal Cannula 3.0 Intake and Output 06/17/16 06/17/16 06/18/16 15:00 23:00 07:00 Intake Total 220 ml Balance 220 ml Results Result Diagram: 06/17/1622 06/17/16 0722 Medications Medications Current Medications Aspirin (Aspirin) 81 mg DAILY PO Last administered on 06/18/16 08:42; Admin Dose 81 MG; Start 06/08/16 at 09:00 Docusate Sodium (Colace) 100 mg BID PO Last administered on 06/18/16 08:44; Admin Dose 100 MG; Start 06/08/16 at 21:00 Senna (Senokot) 1 tab BID PO Last administered on 06/18/16 08:43; Admin Dose 1 TAB; Start 06/08/16 at 21:00 Hydralazine HCl (Apresoline) 10 mg Q6H PRN IV SBP > 220; Start 06/09/16 at 20: 00 Enoxaparin Sodium (Lovenox) 40 mg QPM SC Last administered on 06/17/16 20:48; Admin Dose 40 MG; Start 06/11/16 at 17:45 Diltiazem HCl (Cardizem) 60 mg Q6 PRN PO HR>120 Last administered on 06/13/16 09:08; Admin Dose 60 MG; Start 06/12/16 at 18:00 Furosemide (Lasix) 40 mg DAILY PO Last administered on 06/18/16 08:43; Admin Dose 40 MG; Start 06/13/16 at 09:00 Digoxin (Digoxin) 0.125 mg DAILY@13 PO Last administered on 06/18/16 13:27; Admin Dose 0.125 MG; Start 06/15/16 at 13:00 Bisoprolol Fumarate (Zebeta) 5 mg BID PO Last administered on 06/18/16 08:43; Admin Dose 5 MG; Start 06/15/16 at 21:00 Famotidine (Pepcid) 20 mg HS PO Last administered on 06/17/16 20:41; Admin Dose 20 MG; Start 06/17/16 at 21:00 Ondansetron HCl (Zofran Inj) 4 mg Q4H PRN IV NAUSEA AND/OR VOMITING; Start at 16:30 Bisacodyl (Dulcolax Supp) 10 mg Q48H PRN [place] CONSTIPATION; Start 06/16/16 at 16: 30 Atorvastatin Calcium (Lipitor) 20 mg HS PO Last administered on 06/17/16 20:41 ; Admin Dose 20 MG; Start 06/17/16 at 21:00 VASQUEZ ROBLEDO MD Jun 18, 2016 14:05
== END 2016-06-18 15:00 | DRG 64 ==
LOC: E/R 18:51 → TEL 21:23 → MS2 06-17 15:55
PROVIDERS: ADMIT Family Medicine; ATTEND Family Medicine
DX: I63.412 Cerebral infarction due to embolism of left middle cerebral artery (principal); I50.23 Acute on chronic systolic (congestive) heart failure; J81.1 Chronic pulmonary edema; I48.92 Unspecified atrial flutter; I27.2 Other secondary pulmonary hypertension; G81.91 Hemiplegia, unspecified affecting right dominant side; I48.91 Unspecified atrial fibrillation; R62.7 Adult failure to thrive; R47.01 Aphasia; I25.5 Ischemic cardiomyopathy; R13.10 Dysphagia, unspecified; E78.5 Hyperlipidemia, unspecified; I25.10 Atherosclerotic heart disease of native coronary artery without angina pectoris; I44.7 Left bundle-branch block, unspecified; I34.0 Nonrheumatic mitral (valve) insufficiency; I11.0 Hypertensive heart disease with heart failure; R74.0 Nonspecific elevation of levels of transaminase and lactic acid dehydrogenase [LDH]; R07.89 Other chest pain; R94.5 Abnormal results of liver function studies; M79.642 Pain in left hand; Z66 Do not resuscitate; Z79.82 Long term (current) use of aspirin; Z95.5 Presence of coronary angioplasty implant and graft; Z85.46 Personal history of malignant neoplasm of prostate
CPT/HCPCS: 36415; 36600; 70450; 70542; 70545; 70548; 70552; 71010; 80048; 80053; 80061; 80162; 82550; 82553; 82803; 82962; 83036; 83735; 83880; 84100; 84443; 84484; 85025; 85610; 85730; 86704; 86709; 86803; 87340; 92523; 92526; 92610; 93005; 93306; 94640; 94664; 96374; 96375; 97110; 97116; 97162; 97530; J1940; J1650; J2060; J2270; J2405; J3480; J7040

== ENCOUNTER 2016-10-11 14:08 | Inpatient (IN) | payer MEDICAID, OTHER ==
[~2016-10-11] VITALS: Ht 157.5 cm; Wt 61.7 kg
[~2016-10-11 14:08] MED LIST changes: -ATOR20TA38 PO; +BISO5TAB21 PO; -METO50TA16 PO; -NIT4 SL
[2016-10-11] MEDS ORDERED: AMIODARONE 900MG/D5W DRIP 500 ML IV STA ×2 (14:44→15:10)
[2016-10-11] MEDS ORDERED: SOD CHLORIDE 0.9% 500 ML IV STA (14:44)
[2016-10-11] MEDS ORDERED: AMIODARONE 150MG/D5W BOLUS IV* STA (14:44)
[2016-10-11] MEDS ORDERED: ASPIRIN 325 MG TAB PO STA (14:44)
[2016-10-11] MEDS ORDERED: SODIUM CHLORIDE 0.9% 1L BAG IV* STA (14:47)
--- NOTE | 2016-10-11 14:59 | RADRPT ---
PROCEDURE: XR Chest. CLINICAL INDICATION: Chest pain. TECHNIQUE: Single frontal view. COMPARISON: 06/09/2016. FINDINGS: There is mild interstitial disease bilaterally in the mid and lower lung zones consistent with pulmo nary edema. The lungs are otherwise clear. The heart is enlarged. There are small bilateral pleural effusions. There is no pneumothorax. IMPRESSION: 1. Mild pulmonary edema and cardiomegaly. 2. Small bilateral pleural effusions. RPTAT: QQ .Bentley Gutierrez MD, MD Date Time Electronically viewed and signed by .Bentley Gutierrez MD, MD on 10/11/2016 14:58 .R/
[2016-10-11 15:26] LABS: ADD SCAN DIFF NO
[2016-10-11 15:29] LABS: ABNORMAL IP MESSAGE 1; BASOPHILS % 0.3 % (0.0-2.0); EOSINOPHILS # 0.1 10^3/ul (0.0-0.5); EOSINOPHILS % 1.2 % (0.0-7.0); HEMATOCRIT 45.2 % (42.0-52.0); HEMOGLOBIN 15.5 g/dl (14.0-18.0); LYMPHOCYTES % 17.6 % (15.0-51.0); MEAN CORPUSCULAR HEMOGLOBIN 31.4 pg (29.0-33.0); MEAN CORPUSCULAR HGB CONC 34.3 g/dl (32.0-37.0); MEAN CORPUSCULAR VOLUME 91.7 fl (82.0-101.0); MEAN PLATELET VOLUME 14.5 fl (7.4-10.4); MONOCYTE # 0.5 10^3/ul (0.3-0.9); MONOCYTES % 8.9 % (0.0-11.0); NEUTROPHIL # 4.1 10^3/ul (1.6-7.5); NEUTROPHILS % 71.7 % (39.0-77.0); PLATELET COUNT 102 10^3/UL (140-415); RED BLOOD COUNT 4.93 10^6/ul (4.70-6.10); RED CELL DISTRIBUTION WIDTH 15.9 % (11.5-14.5); WHITE BLOOD COUNT 5.7 10^3/ul (4.8-10.8)
[2016-10-11] MEDS ORDERED: ASPIRIN 300 MG SUPP PR ONE (15:30)
[2016-10-11 15:48] LABS: INR 2.3; PROTIME 25.6 Sec (12.2-14.2)
[2016-10-11 15:49] LABS: PARTIAL THROMBOPLASTIN TIME 52.4 Sec (25.0-35.0)
[2016-10-11 15:53] LABS: ANION GAP 16 (8-16); BLOOD UREA NITROGEN 21 mg/dl (7-20); CALCIUM 9.6 mg/dl (8.4-10.2); CARBON DIOXIDE 21 mmol/L (21-31); CHLORIDE 111 mmol/L (97-110); CREATININE 1.06 mg/dl (0.61-1.24); GLUCOSE 119 mg/dl (70-220); SODIUM 144 mmol/L (135-144)
--- NOTE | 2016-10-11 15:53 | RADRPT ---
PROCEDURE: CT Brain without contrast. CLINICAL INDICATION: Acute mental status changes TECHNIQUE: A CT of the brain was performed on a GE relocalitypeed 64-slice CT scanner utilizing axial imaging from the skull base through the vertex without IV contrast. Multiplanar reformatted images were made. Images were reviewed on a PACS workstation. The CTDIvol is 42.02 mGy and the DLP is 720 .23 mGycm. One of the following 3 dose reduction techniques were used: Automated exposure control; adjustment of the mA and/or kV according to patient size; or use of iterative reconstruction technique. COMPARISON: 06/09/[address] brain 06/09/2016 FINDINGS: There is no intracranial hemorrhage, mass effect, or midline shift. No extra-axial fluid collection is seen. The ventricles and sulci are age appropriate. Mild diffuse volume loss is present. Wedge -shaped decreased attenuation is again noted in the left frontal lobe, frontal per colon insula and anterior temporal lobe compatible with chronic left middle cerebral artery infarct. Wedge-shaped de creased attenuation is present in the right frontal lobe, specifically the right middle foot frontal gyrus compatible with a chronic infarct. In addition, a right posterior medial parietal lobe decre ased attenuation is present compatible with a chronic right parietal lobe infarct. The right fronta l and parietal lobe infarcts are of interval onset when compared with prior CT and MRIs. Decreased attenuation is noted in the bilateral subcortical white matter, the bilateral centrum semiovale, and the bilateral periventricular white matter compatible with mild chronic microvascular ischemic disease. vascular calcifications are present of the bilateral intracranial internal carotid arteries . The visualized scalp and calvarium are normal. The bilateral orbits demonstrate sequela of prior ca taract replacement. IMPRESSION: 1. No evidence of acute intracranial hemorrhage, infarcts, or acute intracranial pathology. Conside r MR with diffusion sequences in this patient as clinically indicated. 2. When compared with prior CTs and MRIs, interval onset of a chronic right frontal lobe and pariet al lobe infarcts are present as noted above. 3. Chronic left middle cerebral artery infarct involving the left frontal lobe, frontal per colon, insula and anterior temporal lobes. 4. Mild chronic microvascular ischemic disease and diffuse volume loss. 5. Mild atherosclerotic vascular disease. RPTAT: HD .Montserrat Whitney MD, MD Date Time Electronically viewed and signed by .Montserrat Whitney MD, MD on 10/11/2016 15:53 .C/
--- NOTE | 2016-10-11 15:56 | RADRPT ---
PROCEDURE: CT scan of the neck without contrast. CLINICAL INDICATION: Dysphagia. TECHNIQUE: CT scan of the neck was performed on the multi-slice scanner . Contiguous axial images were obtained throughout the neck with coronal and sagittal reformatted images. No IV contrast was a dministered. The exam CTDI = 8.84 and the DLP equals 231.04 mGy-cm. One or more of the following dose reduction techniques were used: Automated exposure control. Adjustment of the mA and/or kV according to patient size. Use of iterative reconstruction technique. COMPARISON: None available FINDINGS: There is circumferential thickening of the upper esophagus with mild luminal narrowing at the level of T1-T2. There are small bilateral pleural effusions. There is diffuse interlobular septal thicke ruby in the upper lungs suggesting interstitial pulmonary edema. There is a prominent left upper me diastinal lymph node measures up to 1 cm in short axis. The oropharynx, hypopharynx, larynx, and tra noe are unremarkable. No airway compromise is seen. The mucosal space of the airway is clear. Th e tonsillar pillars are normal. The deep spaces of the suprahyoid neck are symmetric and normal. N o mass is identified. The parotid glands, submandibular glands, and thyroid gland are all normal. T he surrounding soft tissues and muscles are unremarkable as well. IMPRESSION: 1. Circumferential wall thickening of the upper esophagus with mild luminal narrowing. Recommend endoscopic evaluation. 2. Mildly enlarged upper mediastinal lymph node measures up to 1 cm in short axis. 3. Bilateral pleural effusions and interstitial pulmonary edema. RPTAT: PP .Frederic Stone MD, MD Date Time Electronically viewed and signed by .Frederic Stone MD, on 10/11/2016 15:56 .O/
[2016-10-11 16:04] LABS: B-TYPE NATRIURETIC PEPTIDE 13200 PG/ML (0-450)
[2016-10-11 16:23] LABS: TROPONIN-I < 0.012 ng/ml (0.00-0.12)
--- NOTE | 2016-10-11 17:59 | HP ---
Date/Time of Note Date/Time of Note DATE: 10/11/16 TIME: 17:54 Assessment/Plan VTE Prophylaxis VTE Prophylaxis Intervention: SCD's Lines/Catheters IV Catheter Type (from Nrsg): Saline Lock Assessment/Plan Assessment/Plan 80 yo M with pmhx ICM with EF<25%, AFib/flutter, prostate ca sp prostatectomy presents with through pain. Throat imaging w/u notable for finding of esophageal thickening. Labs also notable for elevated BNP and physical exam with decreased breath sounds in bl bases concerning for acute on chronic systolic heart failure exacerbation. PLAN #esophageal thickening: d/dx includes malignancy v infection (isiah) v varices v other GI/Dr Jennie aware. Anticipate EGD within 1-2 days. npo at [place] #acute on chronic systolic heart failure exacerbation -uptitrate lasix from home dose of 40 PO daily to 40 IV BID -watch lytes carefully -check TTE -may need to talk to cards about ICD/ischemia eval given EF <25 % x 12 + mos ( was also <25% during hospitalization in 2016) -cont home bb/acei -trend troponins #PVCs: check mag aggressive lyte repletion consider cardiology consult in AM #AFib: cont bb -not on ATC at home. consider discussing with cardiology per notes in previous admit for stroke, ATC was advised after a 2 week waiting period, however that was several mos ago #FEN: cardiac diet, NPO at [place] for possible EGD #prophx: SCDs/LMWH HPI/ROS Admit Date/Time Admit Date/Time Hx of Present Illness 80 yo M with pmhx ICM EF<25%, aflutter/afib, prostate ca sp prostatectomy presents with c/o throat pain. Of note, 2/2 throat pain pt unable to provide much history. He denies however any chest pain, SOB, nausea or vomiting. Per ER documentation, also having frequent PVCs on the monitor PMH/Family/Social Past Medical History as per HPI also h/o MCA stroke, CAD sp PCI Past Surgical History Past Surgical Hx: other Social History lives in the community Exam/Review of Systems Vital Signs Vitals Vital Signs Date Time Temp Pulse Resp B/P Pulse Ox O2 Delivery O2 Flow Rate FiO2 10/11/16 14:30 Nasal Cannula 2 10/11/16 14:17 95.6 95 24 152/94 98 Exam Exam mild distress, sitting up, wearing NC MMM OP widely patent no mrg dec BS bl bases abd soft no rashes no le edema Cr nl, BNP elevated imaging notable for proximal esophageal thickening Labs Result Diagram: 10/11/16 1510 10/11/16 1510 ANDREW CARPENTER MD Oct 11, 2016 17:59
[2016-10-11] MEDS ORDERED: NACL 0.9% 3 ML SYG IV SCH (18:00)
[2016-10-11] MEDS ORDERED: ACETAMINOPHEN 325 MG TAB PO PRN ×2 (18:00→18:30)
[2016-10-11] MEDS ORDERED: ONDANSETRON 4 MG INJ IV PRN ×2 (18:00→18:30)
[2016-10-11] MEDS ORDERED: MAGNESIUM HYDROXIDE 30ML CUP PO PRN (18:00)
[2016-10-11] MEDS ORDERED: HYDROCODONE/APAP (5/325) TAB PO PRN (18:00)
[2016-10-11] MEDS ORDERED: DOCUSATE SODIUM 100 MG CAP PO PRN (18:00)
[2016-10-11] MEDS ORDERED: ALBUTEROL 18 GM INHALER INH PRN (18:00)
[2016-10-11] MEDS ORDERED: ONDANSETRON 4 MG TAB PO PRN (18:00)
--- NOTE | 2016-10-11 18:14 | ERA ---
ER Documentation Chief Complaint Date/Time DATE: 10/11/16 TIME: 18:03 Chief Complaint Sore throat and SOB, having trouble speaking. HPI This is a 80-year-old male presents for difficulty breathing as well as throat problem. He is unable to communicate properly. Pleasant came in by himself through the waiting room. Points to his throat. She was mucoid in his wallet that he says he has a history of prostate cancer. Also has a card with his daughter's phone number on it however and recall child answers and then hangs up. They will answer yes or no questions that she denies chest pain. Does admit to shortness of breath. Says his throat does not actually hurt. He is a poor historian. ROS All systems reviewed and are negative except as per history of present illness. Medications Home Meds Active Scripts Bisoprolol Fumarate* (Bisoprolol Fumarate*) 5 Mg Tablet, 5 MG PO BID for 30 Days , TAB Prov:VASQUEZ ROBLEDO MD 06/16/16 Furosemide* (Furosemide*) 40 Mg Tablet, 40 MG PO DAILY for 30 Days, TAB Prov:OLU LEIGH 05/29/15 Albuterol Sulfate* (Ventolin HFA*) 1 Puff Inha, 1 PUFF INH Q4H Y for SHORTNESS OF BREATH, #1 INHALER Prov:OLU LEIGH 05/29/15 Lisinopril* (Zestril*) 5 Mg Tab, 5 MG PO DAILY for 30 Days, TAB Prov:REGIDOROLU 05/29/15 Aspirin (Aspirin) 81 Mg Chew, 81 MG PO DAILY for 30 Days, TAB Prov:OLU LEIGH 05/29/15 Allergies Allergies: Coded Allergies: No Known Allergy (Unverified , 04/26/16) PMhx/Soc History of Surgery: Yes (prostate removal) Anesthesia Reaction: No Hx Neurological Disorder: No Hx Respiratory Disorders: No Hx Cardiac Disorders: Yes (htn, hyperlipidemia, stent placement, chf) Hx Psychiatric Problems: No Hx Miscellaneous Medical Probl: Yes (RIGHT HEMIPHLEGIA) Hx Alcohol Use: No Hx Substance Use: No Hx Tobacco Use: No Physical Exam Vitals Vital Signs Date Time Temp Pulse Resp B/P Pulse Ox O2 Delivery O2 Flow Rate FiO2 10/11/16 14:30 Nasal Cannula 2 10/11/16 14:17 95.6 95 24 152/94 98 Physical Exam Const: [] Mild distress, appears uncomfortable Head: Atraumatic Eyes: Normal Conjunctiva, EOMI, AGUILA ENT: Normal External Ears, Nose and Mouth. Oropharynx within normal appearance. Neck: Full range of motion..~ No meningismus. Resp: Clear to auscultation bilaterally Cardio: Regular rhythm with frequent extra beat t, no murmurs Abd: Soft, non tender, non distended. Normal bowel sounds Skin: No petechiae or rashes Back: No midline or flank tenderness Ext: No cyanosis, or edema Neur: Awake and alert and unable to test for orientation, cranial nerves II through XII intact, no focal deficits Psych: Normal Mood and Affect Result Diagram: 10/11/16 1510 10/11/16 1510 Results 24 hrs Laboratory Tests Test 10/11/16 15:10 10/11/16 15:15 10/11/16 15:19 White Blood Count 5.710^3/ul Red Blood Count 4.9310^6/ul Hemoglobin 15.5g/dl Hematocrit 45.2% Mean Corpuscular Volume 91.7fl Mean Corpuscular Hemoglobin 31.4pg Mean Corpuscular Hemoglobin Concent 34.3g/dl Red Cell Distribution Width 15.9% Platelet Count 32375^3/UL Mean Platelet Volume 14.5fl Neutrophils % 71.7% Lymphocytes % 17.6% Monocytes % 8.9% Eosinophils % 1.2% Basophils % 0.3% Nucleated Red Blood Cells % 0.0/100WBC Neutrophils # 4.110^3/ul Lymphocytes # 1.010^3/ul Monocytes # 0.510^3/ul Eosinophils # 0.110^3/ul Basophils # 0.010^3/ul Nucleated Red Blood Cells # 0.010^3/ul Prothrombin Time 25.6Sec Prothrombin Time Ratio 2.0 INR International Normalized Ratio 2.30 Activated Partial Thromboplast Time 52.4Sec Sodium Level 144mmol/L Potassium Level 4.0mmol/L Chloride Level 111mmol/L Carbon Dioxide Level 21mmol/L Anion Gap 16 Blood Urea Nitrogen 21mg/dl Creatinine 1.06mg/dl Glucose Level 119mg/dl Calcium Level 9.6mg/dl Troponin I < 0.012ng/ml B-Type Natriuretic Peptide [id number]/ML Lactic Acid Level 1.5mmol/L Bedside Glucose 104mg/dL Current Medications Medications (Trade) Dose Ordered Sig/Miranda Route PRN Reason Start Time Stop Time Status Last Admin Dose Admin Sodium Chloride (NS) 500 ml @ 500 mls/hr Q1H STAT IV 10/11/16 14:44 10/11/16 16:43 DC 10/11/16 15:03 Aspirin (Aspirin) 325 mg ONCE STAT PO 10/11/16 14:44 10/11/16 14:48 DC Amiodarone HCl 100 ml 100 ml ONCE STAT IV* 10/11/16 14:44 10/11/16 14:48 DC 10/11/16 14:58 Amiodarone HCl (Cordarone 900mg/ D5W Drip) 500 ml @ 0 mls/hr ONCE STAT IV 10/11/16 14:44 10/11/16 16:23 DC Sodium Chloride 1910 ml 1,910 ml BOLUS OVER 2 HOURS STAT IV* 10/11/16 14:47 10/11/16 16:43 DC 10/11/16 15:14 Amiodarone HCl (Cordarone 900mg/ D5W Drip) 500 ml @ 0 mls/hr ONCE STAT IV 10/11/16 15:10 10/11/16 15:11 DC 10/11/16 16:06 Aspirin (Aspirin) 300 mg ONCE ONCE MI 10/11/16 15:30 10/11/16 15:31 DC Albuterol (Ventolin Hfa) 1 puff Q4H PRN INH SHORTNESS OF BREATH 10/11/16 18:00 Aspirin (Aspirin) 81 mg DAILY PO 10/12/16 09:00 Bisoprolol Fumarate (Zebeta) 5 mg BID PO 10/11/16 21:00 Lisinopril (Zestril) 5 mg DAILY PO 10/12/16 09:00 IV Flush (NS 3 ml) 3 ml PER PROTOCOL IV 10/11/16 18:00 UNV Ondansetron HCl (Zofran Tab) 4 mg Q6H PRN PO NAUSEA AND/OR VOMITING 10/11/16 18:00 UNV Ondansetron HCl (Zofran Inj) 4 mg Q6H PRN IV NAUSEA AND/OR VOMITING 10/11/16 18:00 UNV Acetaminophen (Tylenol Tab) 650 mg Q6H PRN PO PAIN LEVEL 1-3 OR FEVER 10/11/16 18:00 UNV Acetaminophen/ Hydrocodone Bitart ([place] (5/325)) 1 tab Q6H PRN PO MODERATE PAIN LEVEL 4-6 10/11/16 18:00 UNV Docusate Sodium (Colace) 100 mg Q12H PRN PO CONSTIPATION 10/11/16 18:00 UNV Magnesium Hydroxide (Milk Of Mag) 30 ml DAILY PRN PO CONSTIPATION 10/11/16 18:00 UNV Enoxaparin Sodium (Lovenox) 40 mg DAILY SC 10/12/16 09:00 UNV Furosemide (Lasix) 40 mg BID IV 10/11/16 21:00 UNV Procedures/MDM Congestive heart failure and esophageal thickening 80-year-old male. Patient initially had several runs of nonsustained V. tach on the monitor. They are frequent enough that I ordered amlodipine 150 mg. Following this the patient had occasional PVCs without any runs. Does have evidence of associated CHF on chest x-ray and a BNP of 13,000. CT shows esophageal thickening. I doubt this is infectious currently as patient has no elevated white blood cell count and is mildly hypothermic. No signs of acute ischemia. Admitting his patient to telemetry I spoke with Dr. Beverly. I put in a patient of Dr. Schneider, labor relations director, for scoping of the esophagus and possible biopsies. EKG interpretation: Sinus tachycardia rate of 104, PVCs, left axis deviation, left bundle branch block. Chest x-ray interpretation: Engorgement of pulmonary vasculature consistent with congestive heart failure, no infiltrate, no pneumothorax, no fracture surveillance monitor interpretation: Audible frequent runs of PVCs transition to occasional PVC. No other arrhythmias. Departure Diagnosis: Primary Impression: Congestive heart failure Additional Impressions: Esophageal thickening Dysphagia Nonsustained ventricular tachycardia Condition: Serious EVERTON HERNANDEZ DO Oct 11, 2016 18:13
[2016-10-11] MEDS ORDERED: FUROSEMIDE 40 MG INJ IV ONE (18:30)
[2016-10-11 18:49] LABS: ADD UMIC YES; UR ASCORBIC ACID 20 mg/dL (NEGATIVE); UR BILIRUBIN (Dip) NEGATIVE (NEGATIVE); UR BLOOD (Dip) NEGATIVE (NEGATIVE); UR CLARITY SLIGHTLY CLOUDY (CLEAR); UR COLOR AMBER (YELLOW); UR GLUCOSE (Dip) NEGATIVE (NEGATIVE); UR KETONES (Dip) NEGATIVE (NEGATIVE); UR LEUKOCYTE ESTERASE (Dip) NEGATIVE Leu/ul (NEGATIVE); UR MUCUS FEW /HPF (NONE SEEN); UR NITRITE (Dip) NEGATIVE (NEGATIVE); UR RBC 1 /HPF (0-5); UR SPECIFIC GRAVITY (Dip) 1.026 (1.003-1.030); UR TOTAL PROTEIN (Dip) 1+ mg/dl (NEGATIVE); UR UROBILINOGEN (Dip) 1+ mg/dL (NEGATIVE)
[2016-10-11] MEDS ORDERED: morphine 2 MG INJ IV PRN (19:00)
[2016-10-11 19:41] LABS: CREATINE KINASE 48 IU/L (23-200)
[2016-10-11 19:51] LABS: CK-MB 0.85 ng/ml (0.0-2.4); TROPONIN-I < 0.012 ng/ml (0.00-0.12)
[2016-10-11 22:12] VITALS: TEMP 96.1
[2016-10-11 22:49] VITALS: PULSE 130
[2016-10-11 23:06] VITALS: PULSE 127
[2016-10-12] MEDS: BISOPROLOL 5 MG TAB PO SCH ×2 (00:03→09:00)
[2016-10-12 00:11] VITALS: PULSE 82
[2016-10-12 00:19] LABS: CALCIUM 9.4 mg/dl (8.4-10.2); CREATININE 0.84 mg/dl (0.61-1.24); MAGNESIUM 1.6 mg/dl (1.7-2.5); POTASSIUM 3.6 mmol/L (3.5-5.1)
[2016-10-12 00:32] LABS: TROPONIN-I 0.021 ng/ml (0.00-0.12)
[2016-10-12 00:36] LABS: CK-MB 1.1 ng/ml (0.0-2.4)
[2016-10-12 00:50] LABS: THYROID STIMULATING HORMONE 1.99 MIU/L (0.465-4.680)
[2016-10-12 01:00] VITALS: Ht 157.5 cm; Wt 61.7 kg
[2016-10-12] MEDS ORDERED: POTASSIUM CHLORIDE (SR) 20 MEQ TAB PO STA (01:38)
[2016-10-12 01:56] VITALS: BP 126/91; PULSE 110
[2016-10-12] MEDS ORDERED: DILTIAZEM 25 MG INJ IV ONE (02:00)
[2016-10-12] MEDS ORDERED: MAGNESIUM SULFATE 2 GM/50 ML 50 ML IVPB ONE (02:00)
[2016-10-12 04:03] VITALS: PULSE 45
[2016-10-12 04:19] VITALS: BP 125/78; RESP 19
[2016-10-12] MEDS ORDERED: FUROSEMIDE 40 MG INJ IV SCH (06:00)
[2016-10-12 08:00] VITALS: PULSE 70
[2016-10-12 08:03] VITALS: BP 138/85; RESP 20
[2016-10-12] MEDS ORDERED: ASPIRIN 81 MG TAB PO SCH (09:00)
[2016-10-12] MEDS ORDERED: LISINOPRIL 5 MG TAB PO SCH (09:00)
[2016-10-12] MEDS ORDERED: ENOXAPARIN 40 MG/0.4 ML SYG SC SCH (09:00)
--- NOTE | 2016-10-12 13:38 | DS ---
Date/Time of Note Date/Time of Note DATE: 10/12/16 TIME: 13:35 Discharge Summary Admission/Discharge Info Admit Date/Time Oct 11, 2016 at 18:03 Discharge Date/Time Oct 12, 2016 at 10:35 (AGAINST MEDICAL ADVICE) Procedures 10/11/2016. CT scan of the neck without contrast. MPRESSION: 1. Circumferential wall thickening of the upper esophagus with mild luminal narrowing. Recommend endoscopic evaluation. 2. Mildly enlarged upper mediastinal lymph node measures up to 1 cm in short axis. 3. Bilateral pleural effusions and interstitial pulmonary edema. Hospital Course This is a 80-year-old male with a past medical history of ischemic cardiomyopathy with known ejection fraction less than 25%, a flutter/A. fib, prostate cancer who is status post prostatectomy, presented to the emergency room with complaints of throat pain. Patient did not have any other constitutional symptoms including chest pain, shortness of breath, nausea, vomiting, diarrhea or other symptoms. Patient denied any fever, chills, upper or lower GI bleed episodes. In the emergency room, initial labs were unremarkable except for elevated BNP 13,200, platelet [id number]. Patient also had elevated PT upon arrival. Vital signs within acceptable range. Chest x-ray with engorgement of pulmonary vasculature consistent with congestive heart failure. EKG with sinus tachycardia at a rate of 104 with PVCs. There was also left bundle branch block. CT brain was unremarkable. CT of the neck showed Circumferential wall thickening of the upper esophagus with mild luminal narrowing. Patient also converted to rapid atrial fibrillation in the emergency room and received amiodarone. A clinical decision was made to admit patient for further evaluation. Patient was admitted to telemetry. Patient was kept n.p.o. Plan was to obtain GI consult and perform endoscopic evaluation to evaluate causes of esophageal thickening and also cardiology consult for arrhythmia. For heart failure, patient was continued on IV Lasix. As patient was awaiting further GI evaluation for endoscopic, patient decided to leave hospital AGAINST MEDICAL ADVICE. Despite our efforts, patient had decided to leave AGAINST MEDICAL ADVICE. Patient has normal mental status and full decisional capacity. She understood her condition and the risk of leaving AMA, including but not limited to permanent disability, etc., and she had an opportunity to ask questions about her medical condition. The patient has been informed that she may return for care anytime and has been referred to her primary care provider for follow- up as soon as possible. Patient left AMA without being seen by myself, GI or forestry extension specialist. Since patient left AMA, no discharge planning/or prescriptions was done. Case discussed with Dr. Yeager. Home Meds Active Scripts Bisoprolol Fumarate* (Bisoprolol Fumarate*) 5 Mg Tablet, 5 MG PO BID for 30 Days , TAB Prov:VASQUEZ ROBLEDO MD 06/16/16 Furosemide* (Furosemide*) 40 Mg Tablet, 40 MG PO DAILY for 30 Days, TAB Prov:OLU LEIGH 05/29/15 Albuterol Sulfate* (Ventolin HFA*) 1 Puff Inha, 1 PUFF INH Q4H Y for SHORTNESS OF BREATH, #1 INHALER Prov:OLU LEIGH 05/29/15 Lisinopril* (Zestril*) 5 Mg Tab, 5 MG PO DAILY for 30 Days, TAB Prov:OLU LEIGH 05/29/15 Aspirin (Aspirin) 81 Mg Chew, 81 MG PO DAILY for 30 Days, TAB Prov:OLU LEIGH 05/29/15 Primary Care Provider Care Physician No Primary Pending Labs Laboratory Tests Test 10/11/16 15:10 10/11/16 15:15 10/11/16 15:19 10/11/16 18:20 White Blood Count 5.710^3/ul (4.8-10.8) Red Blood Count 4.9310^6/ul (4.70-6.10) Hemoglobin 15.5g/dl (14.0-18.0) Hematocrit 45.2% (42.0-52.0) Mean Corpuscular Volume 91.7fl (82.0-101.0) Mean Corpuscular Hemoglobin 31.4pg (29.0-33.0) Mean Corpuscular Hemoglobin Concent 34.3g/dl (32.0-37.0) Red Cell Distribution Width 15.9% (11.5-14.5) Platelet Count 42320^3/UL (140-415) Mean Platelet Volume 14.5fl (7.4-10.4) Neutrophils % 71.7% (39.0-77.0) Lymphocytes % 17.6% (15.0-51.0) Monocytes % 8.9% (0.0-11.0) Eosinophils % 1.2% (0.0-7.0) Basophils % 0.3% (0.0-2.0) Nucleated Red Blood Cells % 0.0/100WBC (0.0-0.0) Neutrophils # 4.110^3/ul (1.6-7.5) Lymphocytes # 1.010^3/ul (0.8-2.9) Monocytes # 0.510^3/ul (0.3-0.9) Eosinophils # 0.110^3/ul (0.0-0.5) Basophils # 0.010^3/ul (0.0-0.1) Nucleated Red Blood Cells # 0.010^3/ul (0.0-0.0) Prothrombin Time 25.6Sec (12.2-14.2) Prothrombin Time Ratio 2.0 INR International Normalized Ratio 2.30 Activated Partial Thromboplast Time 52.4Sec (25.0-35.0) Sodium Level 144mmol/L (135-144) Potassium Level 4.0mmol/L (3.5-5.1) Chloride Level 111mmol/L (97-110) Carbon Dioxide Level 21mmol/L (21-31) Anion Gap 16 (8-16) Blood Urea Nitrogen 21mg/dl (7-20) Creatinine 1.06mg/dl (0.61-1.24) Glucose Level 119mg/dl (70-220) Calcium Level 9.6mg/dl (8.4-10.2) Troponin I < 0.012ng/ml (0.00-0.12) B-Type Natriuretic Peptide 57213CY/ML (0-450) Lactic Acid Level 1.5mmol/L (0.5-2.0) Magnesium Level 2.0mg/dl (1.7-2.5) Bedside Glucose 104mg/dL (70-220) Urine Color RENÉE (YELLOW) Urine Clarity SLIGHTLY CLOUDY (CLEAR) Urine pH 5.0 (5.0-9.0) Urine Specific [place] 1.026 (1.003-1.030) Urine Ketones NEGATIVEmg/dL (NEGATIVE) Urine Nitrite NEGATIVEmg/dL (NEGATIVE) Urine Bilirubin NEGATIVEmg/dL (NEGATIVE) Urine Urobilinogen 1+mg/dL (NEGATIVE) Urine Leukocyte Esterase NEGATIVELeu/ul (NEGATIVE) Urine Microscopic RBC 1/HPF (0-5) Urine Microscopic WBC 2/HPF (0-5) Urine Mucus FEW/HPF (NONE SEEN) Urine Hemoglobin NEGATIVEmg/dL (NEGATIVE) Urine Glucose NEGATIVEmg/dL (NEGATIVE) Urine Total Protein 1+mg/dl (NEGATIVE) Test 10/11/16 19:00 10/11/16 19:05 10/11/16 21:13 10/11/16 23:54 Creatine Kinase 48IU/L (23-200) 49IU/L (23-200) Creatine Kinase Index 1.8 2.2 Creatinine Kinase MB (Mass) 0.85ng/ml (0.0-2.4) 1.10ng/ml (0.0-2.4) Troponin I < 0.012ng/ml (0.00-0.12) 0.021ng/ml (0.00-0.12) Lactic Acid Level 3.3mmol/L (0.5-2.0) 2.4mmol/L (0.5-2.0) Sodium Level 147mmol/L (135-144) Potassium Level 3.6mmol/L (3.5-5.1) Chloride Level 109mmol/L (97-110) Carbon Dioxide Level 21mmol/L (21-31) Anion Gap 21 (8-16) Blood Urea Nitrogen 19mg/dl (7-20) Creatinine 0.84mg/dl (0.61-1.24) Glucose Level 133mg/dl (70-220) Calcium Level 9.4mg/dl (8.4-10.2) Magnesium Level 1.6mg/dl (1.7-2.5) Thyroid Stimulating Hormone (TSH) 1.990MIU/L (0.465-4.680) Microbiology Date/Time Source Procedure Growth Status 10/11/16 18:20 Catheter Urine Urine Culture - Preliminary NO GROWTH AFTER 24 HOURS Resulted SU[employer]ET MORALES V. ENVIRONMENTAL INSPECTOR Oct 12, 2016 13:38
--- NOTE | 2016-10-13 11:06 | RADRPT ---
Echocardiogram Report Patient Name: ROCKY YOUNG Gender: Male Date: 1935 Study Date: 12-Oct-2016 [employer] Operator: Wilfrido Galan [facility] Location: [id number] Ref. Physician: ANDREW CARPENTER Quality: Good Procedures: Transthoracic echocardiogram with complete 2D, M-Mode, and doppler examination. Indications: Congestive Heart Failure exacerbation. 2D/M Mode Doppler Measurement Value Normal Ranges Measurement Value Normal Ranges LVIDd 2D 6.3 3.5 - 5.6 cm AV Peak Kranthi 1.1 m/sec LVIDs 2D 5.6 2.1 - 4.1 cm AV Peak PG 5.0 mmHg FS 2D 11.2 % LVOT Peak Kranthi 0.9 m/sec LVPWd 2D 0.8 0.6 - 1.1 cm LVOT Peak PG 3.0 mmHg IVSd 2D 0.8 0.6 - 1.1 cm MV E Peak Kranthi 0.7 m/sec IVS/LVPW 2D 1.0 MV A Peak Kranthi 0.3 m/sec AoR Diam 2D 2.7 2.0 - 3.7 cm MV E/A 2.1 LA/Ao 2D 2 0 - 1 MV Decel Time 109 msec EDV 2D 252.0 cm3 MV E/A 2.1 ESV 2D 177.0 cm3 TR Peak Kranthi 3.8 m/sec LA Dimen 2D 4.6 2.3 - 4.0 cm TR Peak PG 59.0 mmHg RVSP 74.0 mmHg Findings Left Ventricle: Normal left ventricular wall thickness. Mild enlargement of left ventricle cavity. Severe global left ventricular systolic dysfunction. Ejection fraction is visually estimated at 15 %. Right Ventricle: Normal right ventricular size. Normal right ventricular systolic function. Left Atrium: There is mild enlargement of left atrium. Right Atrium: The right atrium is normal in size. Mitral Valve: Mitral valve leaflets appear mildly thickened. Mild mitral annular calcification. Moderate to severe mitral valve regurgitation. Aortic Valve: No hemodynamically significant aortic stenosis by doppler. Aortic cusps appear mildly calcified. Mild aortic valve regurgitation. Tricuspid Valve: Normal appearance of the tricuspid valve. Estimated peak PA systolic pressure 74 mmHg. There is mild to moderate tricuspid regurgitation. Pulmonic Valve: Pulmonic valve not well visualized. Pericardium: Normal pericardium with no significant pericardial effusion. Left pleural effusion seen. Aorta: Normal aortic root. IVC: Dilated IVC without respiratory collapse consistent with elevated right atrial pressure. Conclusions 1.Normal left ventricular wall thickness. Mild enlargement of left ventricle cavity. Severe global left ventricular systolic dysfunction. Ejection fraction is visually estimated at 15 %. 2.There is mild enlargement of left atrium. 3.Mitral valve leaflets appear mildly thickened. Mild mitral annular calcification. Moderate to severe mitral valve regurgitation. 4.No hemodynamically significant aortic stenosis by doppler. Aortic cusps appear mildly calcified. Mild aortic valve regurgitation. 5.Normal appearance of the tricuspid valve. Estimated peak PA systolic pressure 74 mmHg. There is mild to moderate tricuspid regurgitation. 6.Dilated IVC without respiratory collapse consistent with elevated right atrial pressure. Electronically Signed By: Rock Green 13-Oct-2016 11:05:57 -0700 Patient Name: ROCKY YOUNG Study Date: 12-Oct-2016 [id number]
== END 2016-10-12 10:35 | disposition left against medical advice (07) | DRG 391 ==
LOC: E/R 14:08 → MS4 18:03
PROVIDERS: ADMIT Internal Medicine; ATTEND Internal Medicine
DX: K22.2 Esophageal obstruction (principal); I50.23 Acute on chronic systolic (congestive) heart failure; I48.91 Unspecified atrial fibrillation; I25.5 Ischemic cardiomyopathy; K22.9 Disease of esophagus, unspecified; I11.0 Hypertensive heart disease with heart failure; I49.3 Ventricular premature depolarization; R59.0 Localized enlarged lymph nodes
CPT/HCPCS: 36415; 70450; 70490; 71010; 80048; 81001; 82550; 82553; 82962; 83605; 83735; 83880; 84443; 84484; 85025; 85610; 85730; 87040; 87086; 93005; 93306; 96361; 96365; 96375; 96376; J0282; J1940; J3475; J7030; J7040